=== PATIENT | female | born 1950 | race Caucasian/White ===

== ENCOUNTER → 2016-08-18 | Outpatient (CLI) | payer MEDICARE, BC | LOC: LABWHC1 12:16 | PROVIDERS: ATTEND Physician Assistant Medical | DX: L82.0 Inflamed seborrheic keratosis (principal); S10.86XA Insect bite of other specified part of neck, initial encounter; S60.561A Insect bite (nonvenomous) of right hand, initial encounter | CPT/HCPCS: 36415; 86618 ==

== ENCOUNTER 2018-01-10 07:56 | Day surgery (SDC) | payer MEDICARE, BC ==
[2018-01-06 10:18] VITALS: BMI 25.4
--- NOTE | 2018-01-09 11:59 | P.GSHP ---
History of Present Illness H&P Date: 01/10/18 CHIEF COMPLAINT: Colon screen HISTORY OF PRESENT ILLNESS: The patient is a 67-year-old female who presents for colon screen. Lower endoscopy was offered for further evaluation and management. PAST MEDICAL HISTORY: Please see list. PAST SURGICAL HISTORY: Please see list. MEDICATIONS: Please see list. ALLERGIES: Please see list. SOCIAL HISTORY: No illicit drug use FAMILY HISTORY: No reports of Crohn disease or ulcerative colitis. REVIEW OF ORGAN SYSTEMS: CONSTITUTIONAL: No reports of fevers or chills. PHYSICAL EXAM: VITAL SIGNS: Stable GENERAL: Well-developed pleasant in no acute distress. HEENT: No scleral icterus. Extraocular movements grossly intact. Moist buccal mucosa. NECK: Supple without lymphadenopathy. CHEST: Unlabored respirations. Equal bilateral excursions. CARDIOVASCULAR: Regular rate and rhythm. Distal 2+ pulses. ABDOMEN: Soft, nontender, nondistended. MUSCULOSKELETAL: No clubbing, cyanosis, or edema. ASSESSMENT: 1. Colon screen. PLAN: 1. Recommend proceeding with a lower endoscopy Past Medical History Past Medical History: Diabetes Mellitus, Hypertension, Thyroid Disorder Additional Past Medical History / Comment(s): MEN syndrome type1, diabetes mellitus type 2, hypertension and hypertensive cardiovascular disease, hypothyroidism, Fuchs corneal dystrophy, nephrolithiasis, left inferior parathyroid adenoma. History of Any Multi-Drug Resistant Organisms: None Reported Past Surgical History: Adenoidectomy, Appendectomy, Cholecystectomy, Orthopedic Surgery, Tonsillectomy Additional Past Surgical History / Comment(s): Appendectomy, selectively and adenoidectomy, Trans obturator mid urethral sling, pancreatic stent, distal pancreatectomy, splenectomy wrist open reduction and internal fixation,rt corneal transplant Past Anesthesia/Blood Transfusion Reactions: Motion Sickness, Postoperative Nausea & Vomiting (PONV) Additional Past Anesthesia/Blood Transfusion Reaction / Comment(s): vertigo Smoking Status: Former smoker - Past Family History Mother Family Medical History: Coronary Artery Disease (CAD), Diabetes Mellitus Father Family Medical History: No Reported History Sister(s) Family Medical History: Cancer, Diabetes Mellitus Brother(s) Family Medical History: Cancer Daughter(s) Family Medical History: No Reported History Son(s) Family Medical History: Unable to Obtain, Neurologic Disorder Medications and Allergies Home Medications Medication Instructions Recorded Confirmed Type Levothyroxine Sodium [Synthroid] 75 mcg PO MOTUWETH 12/12/13 01/06/18 History Lisinopril 5 mg PO QAM 12/12/13 01/06/18 History metFORMIN HCL [Glucophage] 500 mg PO BID 12/12/13 01/06/18 History Levothyroxine Sodium [Tirosint] 50 mcg PO SUFRSA 01/06/18 01/06/18 History guaiFENesin [Mucinex] 1,200 mg PO BID PRN 01/06/18 01/06/18 History Allergies Allergy/AdvReac Type Severity Reaction Status Date / Time Sulfa (Sulfonamide Allergy Rash/Hives Verified 01/06/18 10:05 Antibiotics) codeine AdvReac Nausea & Verified 01/06/18 10:05 Vomiting
[~2018-01-10 07:56] MED LIST: LACTATED RINGERS 1,000 ML IV SCH
[2018-01-10 08:30] LABS: Glucose,Whole Blood 137 mg/dL (75-99)
[2018-01-10 08:32] VITALS: RESP 16; TEMP 97.5
[2018-01-10] MEDS ORDERED: ONDANSETRON 4 MG/2 ML VIAL IVP ONE (08:33)
[2018-01-10] MEDS ORDERED: LIDOCAINE 1% 20 ML VIAL (10MG/ML) FOR IV START SQ ONE (08:34)
[2018-01-10] MEDS ORDERED: PROPOFOL 10 MG/ML 20 ML VIAL IV ONE (08:53)
[2018-01-10] MEDS ORDERED: LIDOCAINE 1% INJ 10MG/ML (20 ML MDV) ONE (08:53)
--- NOTE | 2018-01-10 09:28 | P.PCN ---
Date of Procedure: 01/10/18 Description of Procedure: PREOPERATIVE DIAGNOSIS: History of colon polyp History of hemorrhoids POSTOPERATIVE DIAGNOSIS: History of colon polyp. Cecal tubular adenoma External hemorrhoids, grade 3. OPERATION: Colonoscopy to the ileocecal valve and appendiceal orifice. Colonoscopy with cold forceps biopsies. SURGEON: Yasmine Blackburn MD. ANESTHESIA: MAC. INDICATIONS: The patient is a 67-year-old female who presents for colonoscopy screening. Last colonoscopy was 5 years ago. Benefits and risks were described and informed consent was obtained. DESCRIPTION OF PROCEDURE: The patient had undergone Gatorade, MiraLAX and Dulcolax prep. She had been brought into the operating room and laid in the left lateral decubitus position. After adequate intravenous sedation, the rectum was examined with 2% lidocaine jelly. External hemorrhoids were encountered. The rectal tone was within normal limits. No lesions were palpated in the rectal vault. An Olympus colonoscope was advanced until the ileocecal valve and appendiceal orifice were clearly viewed. Her sigmoid colon was highly redundant requiring abdominal wall pressure. The prep was excellent with visualization of the mucosal folds. The scope was removed with visualization of each mucosal fold. No scattered diverticulosis was encountered. Flat villous adenoma 4 mm was removed with cold forcep biopsy. No evidence of focal colitis was found. Retroflexion of the scope demonstrated grade 1 internal hemorrhoids without active bleeding or inflammation. The colon was desufflated. The patient had tolerated the procedure well. Withdrawal time was over 6 minutes. FINDINGS: Internal hemorrhoids, grade 3 External hemorrhoids, grade 3. No arteriovenous malformations. Flat villous adenoma 4 mm was removed with cold forcep biopsy. No sigmoid diverticulosis. Highly redundant sigmoid colon. No focal colitis. RECOMMENDATIONS: Repeat colonoscopy in 5 years, 2022 Plan - Discharge Summary New Discharge Prescriptions: No Action Lisinopril 5 mg PO QAM Levothyroxine Sodium [Synthroid] 75 mcg PO MOTUWETH metFORMIN HCL [Glucophage] 500 mg PO BID Levothyroxine Sodium [Tirosint] 50 mcg PO SUFRSA guaiFENesin [Mucinex] 1,200 mg PO BID PRN PRN Reason: Congestion Discharge Medication List Levothyroxine Sodium [Synthroid] 75 mcg PO MOTUWETH 12/12/13 [History] Lisinopril 5 mg PO QAM 12/12/13 [History] metFORMIN HCL [Glucophage] 500 mg PO BID 12/12/13 [History] Levothyroxine Sodium [Tirosint] 50 mcg PO SUFRSA 01/06/18 [History] guaiFENesin [Mucinex] 1,200 mg PO BID PRN 01/06/18 [History]
[2018-01-10 09:44] VITALS: BP 135/85; PULSE 79
[2018-01-10] MEDS ORDERED: SIMETHICONE 40 MG/0.6 ML DROPS 2,000 MG/30 ML BOTTLE PO SCH (13:30)
== END 2018-01-10 10:53 | disposition home or self-care (01) ==
LOC: ORWHC2ENDO 07:56
PROVIDERS: ATTEND Surgery Plastic and Reconstructive Surgery
DX: Z12.11 Encounter for screening for malignant neoplasm of colon (principal); D37.4 Neoplasm of uncertain behavior of colon; Q43.8 Other specified congenital malformations of intestine; K64.2 Third degree hemorrhoids; Z86.010 Personal history of colon polyps; I10 Essential (primary) hypertension; E11.9 Type 2 diabetes mellitus without complications; E07.9 Disorder of thyroid, unspecified; E31.21 Multiple endocrine neoplasia [MEN] type I; E03.9 Hypothyroidism, unspecified; D35.1 Benign neoplasm of parathyroid gland; Z87.442 Personal history of urinary calculi; Z87.891 Personal history of nicotine dependence; Z79.84 Long term (current) use of oral hypoglycemic drugs; Z79.890 Hormone replacement therapy; Z79.899 Other long term (current) drug therapy; Z88.5 Allergy status to narcotic agent; Z88.2 Allergy status to sulfonamides
CPT/HCPCS: 88305; 45380; J2405; J2001; J2704

== ENCOUNTER → 2018-02-23 | Outpatient (CLI) | payer MEDICARE, BC ==
--- NOTE | 2018-02-28 10:56 | MM ---
Reason for exam: screening (asymptomatic). Last mammogram was performed 11 months ago. History: Patient is postmenopausal. Family history of breast cancer in maternal aunt at age 56, breast cancer in maternal cousin, and premenopausal breast cancer in maternal aunt at age 40. Cyst aspiration of the left breast. Physical Findings: A clinical breast exam by your physician is recommended on an annual basis and results should be correlated with mammographic findings. MG 3D Screening Mammo W/Cad Bilateral CC and MLO view(s) were taken. Prior study comparison: March 11, 2017, left breast MG 3d work up w/cad LT. February 22, 2017, bilateral MG 3d screening mammo w/cad. The breast tissue is heterogeneously dense. This may lower the sensitivity of mammography. Left focal asymmetry upper outer quadrant is stable. Right upper outer quadrant focal asymmetry at middle depth appears increased in density on CC in comparison to priors, mass posterior to this is stable. ASSESSMENT: Incomplete: need additional imaging evaluation, BI-RAD 0 RECOMMENDATION: Special view mammogram of the right breast. If lesion persists on supplemental views, image directed ultrasound is recommended. [facility] will attempt to contact patient to return for supplemental views and ultrasound if indicated.
== END ==
LOC: RADMAMWWP 10:01
PROVIDERS: ATTEND Internal Medicine
DX: Z12.31 Encounter for screening mammogram for malignant neoplasm of breast (principal)
CPT/HCPCS: 77063; 77067

== ENCOUNTER → 2018-03-14 | Outpatient (CLI) | payer MEDICARE, BC ==
--- NOTE | 2018-03-15 08:11 | MM ---
Reason for exam: additional evaluation requested from abnormal screening. Last mammogram was performed 1 month ago. History: Patient is postmenopausal. Family history of breast cancer in maternal aunt at age 56, breast cancer in maternal cousin, and premenopausal breast cancer in maternal aunt at age 40. Cyst aspiration of the left breast. Physical Findings: Nurse did not find any significant physical abnormalities on exam. MG 3D Work Up W/Cad RT Spot compression CC, spot compression MLO, and LM view(s) were taken of the right breast. Prior study comparison: February 23, 2018, bilateral MG 3d screening mammo w/cad. March 11, 2017, left breast MG 3d work up w/cad LT. January 08, 2014, bilateral MG screening mammo w CAD. December 07, 2012, bilateral digital screening mammo w/CAD. The breast tissue is heterogeneously dense. This may lower the sensitivity of mammography. There is no discrete abnormality. No significant new findings when compared with previous films. These results were verbally communicated with the patient and result sheet given to the patient on 03/14/18. ASSESSMENT: Benign, BI-RAD 2 RECOMMENDATION: Return to routine screening mammogram schedule for both breasts.
== END | disposition home or self-care (01) ==
LOC: RADMAMWWP 15:39
PROVIDERS: ATTEND Internal Medicine
DX: R92.8 Other abnormal and inconclusive findings on diagnostic imaging of breast (principal)
CPT/HCPCS: 77065; G0279; 77061

== ENCOUNTER → 2018-09-07 | Outpatient (CLI) | payer MEDICARE, BC ==
--- NOTE | 2018-09-07 15:25 | US ---
EXAMINATION TYPE: US pelvis complete transvag DATE OF EXAM: 09/07/2018 COMPARISON: CT CLINICAL HISTORY: R10.2 right pelvic pain. Pt states RLQ pain, possible right pelvic mass felt on Dr' s examination TECHNIQUE: Transvaginal (TV) and Transabdominal (TA) . Transabdominal sonographic images of the pel vis were acquired. Transvaginal sonographic images were medically necessary to better assess the fol lowing anatomy: Entire pelvis Date of LMP: Age 50 EXAM MEASUREMENTS: Uterus: 6.5 x 3.6 x 4.5 cm Endometrial Stripe: 0.5 cm Right Ovary: 1.3 x 1.4 x 1.4 cm Left Ovary: 2.1 x 1.3 x 1.7 cm 1. Uterus: Retroverted Heterogeneous, probable two fibroids visualized left UT= 1.8 x 1.4 x 1.9 cm/ 1.6 x 1.3 x 1.5 cm 2. Endometrium: wnl 3. Right Ovary: wnl 4. Left Ovary: wnl 5. Bilateral Adnexa: wnl 6. Posterior cul-de-sac: wnl IMPRESSION: Heterogenous uterus with 2 focal hypoechoic lesions measuring 1.9 and 1.6 cm likely relat ed to intramural leiomyomas. Adnexa appear within normal limits sonographically.
== END ==
LOC: RADUSWWP 14:03
PROVIDERS: ATTEND Obstetrics & Gynecology
DX: N85.9 Noninflammatory disorder of uterus, unspecified (principal)
CPT/HCPCS: 76830; 76856

== ENCOUNTER → 2018-11-04 | Outpatient (CLI) | payer MEDICARE, BC ==
[2018-11-04 11:01] LABS: Appearance,Urine Cloudy (Clear); Bacteria,Urine Many /hpf; Bilirubin,Urine Negative (Negative); Blood,Urine Trace (Negative); Color,Urine Yellow; Glucose,Urine (UA) Negative (Negative); Ketones,Urine Negative (Negative); Leukocyte Esterase,Urine Large (Negative); Mucus,Urine Many /hpf; Nitrite,Urine Negative (Negative); Protein,Urine Trace (Negative); RBC,Urine 5 /hpf (0-5); Specific Gravity,Urine 1.009 (1.001-1.035); Squamous Epithelial Cell,Urine 7 /hpf (0-4); Urobilinogen,Urine <2.0 mg/dL (<2.0); WBC,Urine 63 /hpf (0-5)
[2018-11-04 11:16] LABS: Basophils # (A) 0.1 k/uL (0-0.2); Basophils % (A) 1 %; Eosinophils # (A) 0.3 k/uL (0-0.7); Eosinophils % (A) 3 %; HCT 39.6 % (34.0-46.0); HGB 12.1 gm/dL (11.4-16.0); Lymphocytes # (A) 2.7 k/uL (1.0-4.8); Lymphocytes % (A) 31 %; MCH 31.2 pg (25.0-35.0); MCHC 30.6 g/dL (31.0-37.0); Macrocytosis Slight; Mean Platelet Volume 7.7; Monocytes # (A) 0.6 k/uL (0-1.0); Monocytes % (A) 7 %; Neutrophils # (A) 4.8 k/uL (1.3-7.7); Neutrophils % (A) 56 %; Platelet Count 411 k/uL (150-450); RBC 3.88 m/uL (3.80-5.40); RDW 13.2 % (11.5-15.5); Reticulocyte % 0.8 % (0.5-2.0); WBC 8.6 k/uL (3.8-10.6)
[2018-11-04 18:47] LABS: Iron Saturation 46.15 (12.00-45.00)
[2018-11-04 18:55] LABS: African American GFR (CKD) 101.7 (60.0-200.0); Albumin 4.3 g/dL (3.80-4.90); Albumin/Globulin Ratio 2.15 (1.60-3.17); Anion Gap 8.2 mmol/L (4.00-12.00); BUN/Creat Ratio 18.57 Ratio (12.00-20.00); Calcium 9.5 mg/dL (8.7-10.3); Carbon Dioxide 24.8 mmol/L (21.6-31.8); LDL Cholesterol,Calculated 79.8 mg/dL (0.0-131.0); Magnesium 1.8 mg/dL (1.5-2.4); Potassium 4.3 mmol/L (3.5-5.5); Total Bilirubin 0.8 mg/dL (0.3-1.2); Total Protein 6.3 g/dL (6.2-8.2); VLDL Calculation 30.2 mg/dL (5.00-40.00)
[2018-11-04 19:00] LABS: Vitamin D 25 Hydroxy 31.1 ng/mL (30.0-100.0)
[2018-11-04 19:02] LABS: T4, Free (Free Thyroxine) 1.2 ng/dL (0.80-1.80)
== END | disposition home or self-care (01) ==
LOC: LABWHC1 09:55
PROVIDERS: ATTEND Family Medicine
DX: E31.21 Multiple endocrine neoplasia [MEN] type I (principal); E11.8 Type 2 diabetes mellitus with unspecified complications; D64.9 Anemia, unspecified; E55.9 Vitamin D deficiency, unspecified; E53.8 Deficiency of other specified B group vitamins
CPT/HCPCS: 36415; 80053; 80061; 81001; 82043; 82306; 82550; 82570; 82607; 82728; 83001; 83002; 83540; 83550; 83735; 83970; 84146; 84439; 84443; 85025; 85045

== ENCOUNTER → 2019-03-07 | Outpatient (CLI) | payer MEDICARE, BC ==
--- NOTE | 2019-03-07 21:12 | MR ---
EXAMINATION TYPE: MR hip LT wo con DATE OF EXAM: 03/07/2019 COMPARISON: NONE HISTORY: 68-year-old female Left hip pain x 3 mos TECHNIQUE: Multiplanar, multisequence images of the left hip were obtained without IV contrast. FINDINGS: Moderate stool within the distal sigmoid and rectum. There is a 2.0 cm left uterine fundal fibroid. N o abnormal fluid collection in the pelvis or pelvic lymphadenopathy. The sacrum and SI joints are intact. Pubic symphysis is intact. Hips show physiologic joint fluid; no evidence for acute fracture or AVN. Mild degenerative changes suggested at both hips but osseous detail could be better assessed radiogra phically. On the left, one superior acetabulum, there is linear fluid signal undercutting the labral bone inter face. There is anteriorly, there is prominent cystic change within the anterior acetabulum measuring 2.0 x 1.6 x 1.1 cm and additional extraosseous cyst just anteriorly measuring 2.0 x 1.0 x 1.2 cm. Thi s is located directly deep to the femoral neurovascular bundle. No suspicious bone marrow replacement. The rectus femoris and hamstrings origins as well as the iliopsoas and gluteal insertions are intact. Normal course, caliber, and signal intensity of the sciatic nerves. IMPRESSION: 1. Superior acetabular labral tear on the left. 2. A 2.0 cm ganglion cyst along the anterior left acetabulum located directly deep to the femoral jessenia rovascular bundle. Findings probably reflect a paralabral cyst. 3. There is a separate but adjacent 2.0 cm intraosseous ganglion within the anterior acetabulum which could be secondary to left hip OA, better evaluated radiographically.
== END | disposition home or self-care (01) ==
LOC: RADMRIMAIN 08:46
PROVIDERS: ATTEND Family Medicine
DX: S73.192A Other sprain of left hip, initial encounter (principal); M67.452 Ganglion, left hip

== ENCOUNTER → 2019-03-08 | Outpatient (CLI) | payer MEDICARE, BC ==
--- NOTE | 2019-03-09 11:43 | MM ---
Reason for exam: screening (asymptomatic). Last mammogram was performed 1 year ago. History: Patient is postmenopausal. Family history of breast cancer in maternal aunt at age 56, breast cancer in maternal cousin, and premenopausal breast cancer in maternal aunt at age 40. Cyst aspiration of the left breast. Physical Findings: A clinical breast exam by your physician is recommended on an annual basis and results should be correlated with mammographic findings. MG 3D Screening Mammo W/Cad Bilateral CC and MLO view(s) were taken. XCCL view(s) were taken of the right breast. Prior study comparison: March 14, 2018, right breast MG 3d work up w/cad RT. February 23, 2018, bilateral MG 3d screening mammo w/cad. The breast tissue is heterogeneously dense. This may lower the sensitivity of mammography. Benign appearing bilateral calcifications. Bilateral upper outer quadrant asymmetries appear stable. No significant changes when compared with prior studies. ASSESSMENT: Benign, BI-RAD 2 RECOMMENDATION: Routine screening mammogram of both breasts in 1 year.
== END | disposition home or self-care (01) ==
LOC: RADMAMWWP 08:42
PROVIDERS: ATTEND Family Medicine
DX: Z12.31 Encounter for screening mammogram for malignant neoplasm of breast (principal)
CPT/HCPCS: 77063; 77067

== ENCOUNTER → 2019-10-11 | Outpatient (CLI) | payer MEDICARE ==
--- NOTE | 2019-10-12 08:17 | BD ---
EXAMINATION TYPE: Axial Bone Density DATE OF EXAM: 10/11/2019 COMPARISON: 01/08/2014 CLINICAL HISTORY: 69-year-old female postmenopausal screening, disorder of bone Height: 5 FT 1 IN Weight: 128 FRAX RISK QUESTIONS: Alcohol (3 or more units per day): NO Family History (Parent hip fracture): NO Glucocorticoids (More than 3mos): NO (Ex: prednisone, prednisolone, methylprednisolone, dexamethasone, and hydrocortisone). History of Fracture in Adulthood: YES Secondary Osteoporosis: 1. Type 1 Diabetes: NO 2. Hyperthyroidism: NO 3. Menopause before 45: NO 4. Malnutrition: NO 5. Chronic liver disease: NO Rheumatoid Arthritis: NO Current Tobacco Use: NO RISK FACTORS HISTORY OF: History of Wrist Fracture: RT WRIST When: 25-30 YEARS AGO Surgery to Spine/Hip(right/left)/Wrist (right/left): RT WRIST When: 25-30 YEARS AGO Active: YES Postmenopausal woman: AGE 50 Hyperparathyroidism: YES MEDICATIONS: Thyroid Medications: YES Which medication: LEVOTHYROXINE How Long: MANY YEARS Additional Medications: Metformin, levothyroxine, LISINOPRIL Additional History: EXAM MEASUREMENTS: Bone mineral densitometry was performed using the [employer] System. Bone mineral density as measured about the Lumbar spine is: ----- L1-L4(G/cm2): 1.086 T Score Values are as follows: ----- L2: -1.2 ----- L3: -0.8 ----- L4: -0.1 ----- L1-L4: -0.8 Bone mineral density has: DECREASED -3.6 % since study of: 2013 Bone mineral density about the R hip (g/cm2): 0.851 Bone mineral density about the L hip (g/cm2): 0.901 T Score values are as follows: -----R Neck: -1.3 -----L Neck: -1.0 -----R Total: -0.2 -----L Total: -0.2 Bone mineral density has: DECREASED -7.7 % since study of: 2013 IMPRESSION: Osteopenia (T Score between -2.5 and -1). There is slightly increased risk of fracture and the patient may be considered for treatment. Re-Screen 2-5 years. NOTE: T-SCORE=SD OF THE YOUNG ADULT MEAN.
== END | disposition home or self-care (01) ==
LOC: RADBDWWP 15:01
PROVIDERS: ATTEND Family Medicine
DX: Z13.820 Encounter for screening for osteoporosis (principal); M81.8 Other osteoporosis without current pathological fracture; M89.9 Disorder of bone, unspecified
CPT/HCPCS: 77080

== ENCOUNTER → 2019-10-11 | Outpatient (CLI) | payer MEDICARE ==
--- NOTE | 2019-10-11 15:58 | US ---
EXAMINATION TYPE: US kidneys/renal and bladder DATE OF EXAM: 10/11/2019 COMPARISON: CLINICAL HISTORY: N20.0 Calculus of kidney. Hx multiple kidney stones. No pain at this time. EXAM MEASUREMENTS: Right Kidney: 9.7 x 4.6 x 4.2 cm Left Kidney: 10.4 x 4.4 x 5.6 cm Right Kidney: Multiple echogenic foci seen throughout kidney. Largest measured= 0.8 cm in lower pole Left Kidney: Multiple echogenic foci seen throughout kidney. Largest measured with probable caliecta sis = 0.6 cm. Bladder: Distended, anechoic Left jet seen Cortical measured differentiation is maintained. IMPRESSION: Bilateral nephrolithiasis with some minimal pelvic caliectasis noted left kidney
--- NOTE | 2019-10-11 16:06 | XR ---
KUB HISTORY: N 20.0, calculus of kidney Frontal KUB on 2 images Multiple calcifications are present scattered over both kidneys, there are at least 10-15 calcificati ons bilaterally. Largest calcification on the right measures approximately millimeters, similar to th e left. There is no bowel obstruction or pneumoperitoneum. Indeterminate calcifications in the pelvis may represent phleboliths. Large amount of retained fecal debris is present. Surgical clips in the r ight upper quadrant. IMPRESSION: Bilateral nephrolithiasis. Correlate for fecal stasis.
== END | disposition home or self-care (01) ==
LOC: RADUSWWP 14:57
PROVIDERS: ATTEND Urology
DX: N20.0 Calculus of kidney (principal); Z88.2 Allergy status to sulfonamides
CPT/HCPCS: 74018; 76770

== ENCOUNTER → 2020-08-01 | Outpatient (CLI) | payer MEDICARE ==
[2020-08-01 10:39] LABS: Ionized Calcium 5.5 mg/dL (4.5-5.3)
[2020-08-01 11:05] LABS: ALT 20 U/L (4-34); AST 25 U/L (14-36); African American GFR (CKD) >90 (>60 ml/min/1.73 sqM); Albumin 4.2 g/dL (3.5-5.0); Albumin/Globulin Ratio 1.6; Alkaline Phosphatase 89 U/L (38-126); Anion Gap 4 mmol/L; Blood Urea Nitrogen 12 mg/dL (7-17); Calcium 10.2 mg/dL (8.4-10.2); Carbon Dioxide 29 mmol/L (22-30); Chloride 107 mmol/L (98-107); Cholesterol 145 mg/dL (<200); Globulin 2.7 g/dL; Glucose 131 mg/dL (74-99); HDL Cholesterol 56 mg/dL (40-60); LDL Cholesterol,Calculated 74 mg/dL (0-99); Non-African American GFR(CKD) >90 (>60 ml/min/1.73 sqM); Potassium 5.1 mmol/L (3.5-5.1); Sodium 140 mmol/L (137-145); Total Bilirubin 0.6 mg/dL (0.2-1.3); Total Protein 6.9 g/dL (6.3-8.2); Triglycerides 76 mg/dL (<150); Uric Acid 5.1 mg/dL (3.7-7.4)
[2020-08-01 11:17] LABS: T4, Free (Free Thyroxine) 1.26 ng/dL (0.78-2.19)
[2020-08-01 15:21] LABS: Basophils # (A) 0.09 X 10*3/uL (0.00-0.10); Eosinophils # (A) 0.26 X 10*3/uL (0.04-0.35); Eosinophils % (A) 2.8 %; HCT 39.4 % (37.2-46.3); HGB 12.4 g/dL (12.0-15.0); Lymphocytes # (A) 3.09 X 10*3/uL (0.90-5.00); Lymphocytes % (A) 33.4 %; MCHC 31.5 g/dL (32.0-37.0); MCV 101.5 fL (80.0-97.0); Mean Platelet Volume 11.3 fL (9.5-12.2); Monocytes # (A) 0.73 X 10*3/uL (0.20-1.00); Monocytes % (A) 7.9 %; Neutrophils # (A) 5.05 X 10*3/uL (1.80-7.70); Neutrophils % (A) 54.7 %; Platelet Count 433 X 10*3/uL (140-440); RBC 3.88 X 10*6/uL (4.10-5.20); RDW 13.9 % (11.5-14.5); WBC 9.24 X 10*3/uL (4.50-10.00)
[2020-08-01 17:00] LABS: Hemoglobin A1C 6.1 % (4.0-6.0)
[2020-08-01 22:13] LABS: Urine Creatinine 63.1 mg/dL
[2020-08-02 02:04] LABS: % Iron Saturation 30.67 (12.00-45.00); Iron 96 ug/dL (50-170); Total Iron Binding Capacity 313 ug/dL (228-460)
== END | disposition home or self-care (01) ==
LOC: LABWHC1 09:22
PROVIDERS: ATTEND Family Medicine
DX: S73.199D Other sprain of unspecified hip, subsequent encounter (principal); E31.21 Multiple endocrine neoplasia [MEN] type I; E11.8 Type 2 diabetes mellitus with unspecified complications; E03.9 Hypothyroidism, unspecified; D64.9 Anemia, unspecified; W19.XXXD Unspecified fall, subsequent encounter
CPT/HCPCS: 36415; 80053; 80061; 82043; 82330; 82570; 83036; 83540; 83550; 83970; 84439; 84443; 84550; 85025

== ENCOUNTER → 2020-09-19 | Outpatient (CLI) | payer MEDICARE ==
--- NOTE | 2020-09-20 12:43 | MM ---
Reason for exam: screening (asymptomatic). Last mammogram was performed 1 year and 6 months ago. History: Patient is postmenopausal. Family history of breast cancer in maternal aunt at age 56, breast cancer in maternal cousin, and premenopausal breast cancer in maternal aunt at age 40. Cyst aspiration of the left breast. Physical Findings: A clinical breast exam by your physician is recommended on an annual basis and results should be correlated with mammographic findings. MG 3D Screening Mammo W/Cad Bilateral CC and MLO view(s) were taken. Prior study comparison: March 08, 2019, bilateral MG 3d screening mammo w/cad. March 14, 2018, right breast MG 3d work up w/cad RT. The breast tissue is heterogeneously dense. This may lower the sensitivity of mammography. ASSESSMENT: Negative, BI-RAD 1 RECOMMENDATION: Routine screening mammogram of both breasts in 1 year.
== END | disposition home or self-care (01) ==
LOC: RADMAMWWP 12:07
PROVIDERS: ATTEND Family Medicine
DX: Z12.31 Encounter for screening mammogram for malignant neoplasm of breast (principal); Z78.0 Asymptomatic menopausal state; Z80.3 Family history of malignant neoplasm of breast
CPT/HCPCS: 77063; 77067

== ENCOUNTER → 2020-12-16 | Outpatient (CLI) | payer MEDICARE ==
--- NOTE | 2020-12-16 11:49 | XR ---
EXAMINATION TYPE: XR KUB DATE OF EXAM: 12/16/2020 HISTORY: Pain Comparison: 10/11/2019 Single KUB is submitted for interpretation. Findings: Right renal calculi: None Visualized. Right ureteral calculi: Innumerable calculi identified. The largest cyst within the midpole measures 6.7 mm. Left renal calculi: Innumerable calculi noted. The largest is in the region of the colon measures 3 mm. Left ureteral calculi: None Visualized. Pelvic calcifications: None Visualized. Bowel gas pattern is unremarkable. No free air. No mass effects. IMPRESSION: 1. Bilateral renal calculi as noted above.
== END | disposition home or self-care (01) ==
LOC: RADXRMAIN 11:18
PROVIDERS: ATTEND Urology
DX: N20.0 Calculus of kidney (principal)
CPT/HCPCS: 74018

== ENCOUNTER → 2021-01-08 | Outpatient (CLI) | payer MEDICARE ==
[2021-01-08 18:30] LABS: Basophils % (A) 1.2 %; Eosinophils # (A) 0.24 X 10*3/uL (0.04-0.35); Eosinophils % (A) 2.8 %; HCT 39.5 % (37.2-46.3); HGB 12.4 g/dL (12.0-15.0); Lymphocytes # (A) 2.87 X 10*3/uL (0.90-5.00); Lymphocytes % (A) 33.3 %; MCHC 31.4 g/dL (32.0-37.0); MCV 101.8 fL (80.0-97.0); Mean Platelet Volume 11.3 fL (9.5-12.2); Monocytes # (A) 0.73 X 10*3/uL (0.20-1.00); Monocytes % (A) 8.5 %; Neutrophils # (A) 4.67 X 10*3/uL (1.80-7.70); Neutrophils % (A) 54.1 %; Platelet Count 461 X 10*3/uL (140-440); RBC 3.88 X 10*6/uL (4.10-5.20); RDW 14.4 % (11.5-14.5); WBC 8.62 X 10*3/uL (4.50-10.00)
[2021-01-08 19:34] LABS: % Iron Saturation 42.21 (12.00-45.00); Chol/HDL Ratio 2.94 Ratio; Creatine Kinase 56 U/L (26-186); Iron 143 ug/dL (50-170); LDL Cholesterol,Calculated 75.2 mg/dL (0.0-131.0); Total Iron Binding Capacity 339 ug/dL (228-460)
== END | disposition home or self-care (01) ==
LOC: LABWHC1 11:20
PROVIDERS: ATTEND Family Medicine
DX: E11.8 Type 2 diabetes mellitus with unspecified complications (principal); E31.21 Multiple endocrine neoplasia [MEN] type I; E03.9 Hypothyroidism, unspecified; F34.1 Dysthymic disorder
CPT/HCPCS: 36415; 80053; 80061; 82550; 82607; 83036; 83540; 83550; 83970; 84443; 85025; 86301

== ENCOUNTER → 2021-01-15 | Outpatient (CLI) | payer MEDICARE ==
--- NOTE | 2021-01-15 13:03 | CT ---
EXAMINATION TYPE: CT abdomen w con DATE OF EXAM: 01/15/2021 COMPARISON: CT 12/12/2013 HISTORY: multiple endocrine neoplasia CT DLP: 812 mGycm Automated exposure control for dose reduction was used. TECHNIQUE: Helical acquisition of images was performed from the lung bases through the top of iliac crest to include entire abdomen, three-phase is performed. CONTRAST: Performed with Oral Contrast and with IV Contrast, patient injected with 100 mL of Isovue 370. FINDINGS: LUNG BASES: No significant abnormality is appreciated. LIVER/GB: Patient is post cholecystectomy. Some dilated central hepatic ducts, common bile duct are n oted PANCREAS: No significant abnormality is seen. 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 Probable splenule noted just underneath the left hemidiaphragm, ax ial image 13 ADRENALS: No significant abnormality is seen. KIDNEYS: Multiple nonobstructing calcifications are present within the kidneys, there is right-sided hydronephrosis and hydroureter. BOWEL: No significant abnormality is seen. LYMPH NODES: No significant abnormality is appreciated. OSSEOUS STRUCTURES: There are degenerative disc changes, facet arthropathy and the visualized spine. Anterolisthesis grade 1 is noted in the lumbar spine at what is believed to BE L4-5. FREE AIR: No Free Air visible ASCITES: None visible. RETROPERITONEAL ADENOPATHY: No Retroperitoneal Adenopathy visible. OTHER: IMPRESSION: POSTOP CHANGES. NO EVIDENT PANCREATIC TUMOR. THERE IS RIGHT-SIDED HYDRONEPHROSIS AND HYDROURETER. PARAG ATERAL NEPHROLITHIASIS AGAIN SEEN. DISTAL ASPECT OF THE OBSTRUCTED URETER IS NOT INCLUDED ON THE EXAM .
== END | disposition home or self-care (01) ==
LOC: RADCTMAIN 08:58
PROVIDERS: ATTEND Family Medicine
DX: N13.2 Hydronephrosis with renal and ureteral calculous obstruction (principal)
CPT/HCPCS: 74160; 36415; Q9967

== ENCOUNTER 2021-02-06 05:48 | Day surgery (SDC) | payer MEDICARE ==
--- NOTE | 2021-02-04 07:04 | P.GSHP ---
History of Present Illness H&P Date: 02/04/21 Chief Complaint: Right-sided abdominal pain is a 70-year-old white female with a history of recurrent urolithiasis. She has recently experienced right-sided abdominal pain. CT scan shows multiple right renal calculi measuring up to 5 mm in size, as well as right hydroureter onephrosis. The distal ureter was not visualized. - Constitutional Constitutional: Denies chills, Denies fever - Gastrointestinal Gastrointestinal: Reports nausea, Denies vomiting - Genitourinary (Female) Genitourinary: Reports flank pain, Reports kidney stones, Denies hematuria Past Medical History Past Medical History: Diabetes Mellitus, Hypertension, Thyroid Disorder Additional Past Medical History / Comment(s): MEN syndrome type1, diabetes mellitus type 2, hypertension and hypertensive cardiovascular disease, hypothyroidism, Fuchs corneal dystrophy, nephrolithiasis, left inferior parathyroid adenoma. History of Any Multi-Drug Resistant Organisms: None Reported Past Surgical History: Adenoidectomy, Appendectomy, Cholecystectomy, Orthopedic Surgery, Tonsillectomy Additional Past Surgical History / Comment(s): Appendectomy, selectively and adenoidectomy, Trans obturator mid urethral sling, pancreatic stent, distal pancreatectomy, splenectomy wrist open reduction and internal fixation,rt corneal transplant Past Anesthesia/Blood Transfusion Reactions: Motion Sickness, Postoperative Nausea & Vomiting (PONV) Additional Past Anesthesia/Blood Transfusion Reaction / Comment(s): vertigo Past Psychological History: No Psychological Hx Reported Past Alcohol Use History: Occasional Additional Past Alcohol Use History / Comment(s): quit smoking >20yrs ago,social smoker as teenager Past Drug Use History: None Reported - Past Family History Mother Family Medical History: Coronary Artery Disease (CAD), Diabetes Mellitus Father Family Medical History: No Reported History Sister(s) Family Medical History: Cancer, Diabetes Mellitus Brother(s) Family Medical History: Cancer Daughter(s) Family Medical History: No Reported History Son(s) Family Medical History: Unable to Obtain, Neurologic Disorder Medications and Allergies Home Medications Medication Instructions Recorded Confirmed Type Levothyroxine Sodium [Synthroid] 75 mcg PO MOTUWETH 12/12/13 01/10/18 History lisinopriL [Lisinopril] 5 mg PO QAM 12/12/13 01/10/18 History metFORMIN HCL [Glucophage] 500 mg PO BID 12/12/13 01/10/18 History Levothyroxine Sodium [Tirosint] 50 mcg PO SUFRSA 01/06/18 01/10/18 History guaiFENesin [Mucinex] 1,200 mg PO BID PRN 01/06/18 01/10/18 History Allergies Allergy/AdvReac Type Severity Reaction Status Date / Time Sulfa (Sulfonamide Allergy Rash/Hives Verified 01/10/18 08:18 Antibiotics) codeine AdvReac Nausea & Verified 01/10/18 08:18 Vomiting Surgical - Exam - General well developed, well nourished, no distress - Respiratory normal respiratory effort, clear to auscultation - Cardiovascular Rhythm: regular Abnormal Heart Sounds: no systolic murmur, no diastolic murmur, no rub, no S3 Gallop, no S4 Gallop, no click, no other - Abdomen Abdomen: soft, non tender, no guarding, no rigid, no rebound - Psychiatric oriented to time, oriented to person, oriented to place, speech is normal, memory intact Results - Imaging CT scan - abdomen: report reviewed, image reviewed Assessment and Plan (1) Kidney stone Status: Acute Code(s): N20.0 - CALCULUS OF KIDNEY SNOMED Code(s): 10524523 (2) Hydronephrosis with renal and ureteral calculous obstruction Status: Acute Code(s): N13.2 - HYDRONEPHROSIS WITH RENAL AND URETERAL CALCULOUS OBSTRUCTION SNOMED Code(s): 371928537 Plan: cystoscopy, right retrograde pyelogram, right ureteroscopy with Holmium laser li thotripsy and possible stone basketing, right ureteral stent insertion. It is anticipated that the patient may have a right distal ureteral calculus. The procedure has been reviewed in detail with the patient. She is aware of potential risks, which include anesthesia, bleeding, infection, and ureteral injury. She understands the possible need for a secondary treatment.
[2021-02-04 14:32] VITALS: BMI 23.2
[2021-02-06] MEDS ORDERED: ONDANSETRON 4 MG/2 ML VIAL IVP ONE (06:27)
[2021-02-06] MEDS ORDERED: LACTATED RINGERS 1,000 ML IV SCH (06:27)
[2021-02-06] MEDS ORDERED: MIDAZOLAM 2 MG/2 ML VIAL IV PRN (06:27)
[2021-02-06] MEDS ORDERED: DEXAMETHASONE SOD PHOSPHATE 4 MG/ML 1 ML VIAL IV ONE (06:27)
[2021-02-06 06:55] LABS: Glucose,Whole Blood 131 mg/dL (75-99)
[2021-02-06] MEDS ORDERED: fentaNYL (PF) 50 MCG/ML 2 ML AMP IV PRN (07:00)
[2021-02-06] MEDS ORDERED: SUCCINYLCHOLINE CHLORIDE 100 MG/5 ML SYR IV ONE (07:32)
[2021-02-06] MEDS ORDERED: LIDOCAINE 1% INJ 10MG/ML (20 ML MDV) ONE (07:32)
[2021-02-06] MEDS ORDERED: PROPOFOL 10 MG/ML 20 ML VIAL IV ONE (07:32)
[2021-02-06] MEDS ORDERED: ROCURONIUM 10 MG/ML (5 ML VIAL) IV ONE (07:32)
[2021-02-06] MEDS ORDERED: fentaNYL (PF) 50 MCG/ML 2 ML AMP ONE (07:32)
[2021-02-06] MEDS ORDERED: GLYCOPYRROLATE 0.2 MG/ML 2 ML VIAL ONE (07:32)
[2021-02-06] MEDS ORDERED: ePHEDrine 50 MG/ML 1 ML AMP ONE (07:32)
[2021-02-06] MEDS ORDERED: NEOSTIGMINE 1 MG/ML 10 ML VIAL ONE (07:32)
[2021-02-06] MEDS ORDERED: MIDAZOLAM 2 MG/2 ML VIAL ONE (07:32)
--- NOTE | 2021-02-06 07:59 | XR ---
EXAMINATION TYPE: XR KUB DATE OF EXAM: 02/06/2021 Comparison: 12/16/2020 Clinical History: 70-year-old female Right Renal Calculi Right Hydronephrosis Findings: Numerous bilateral renal calculi measuring up to 5 mm on the right and 4 mm on the left. Scattered mi [id number] stool. Nonobstructive bowel gas pattern. Cholecystectomy clips. Impression: Redemonstrated numerous bilateral renal calculi measuring up to 5 mm.
[2021-02-06] MEDS ORDERED: LACTATED RINGERS 1,000 ML IV ONE (08:58)
[2021-02-06 09:55] LABS: Glucose,Whole Blood 171 mg/dL (75-99)
[2021-02-06 09:58] VITALS: TEMP 97.1
[2021-02-06 10:04] VITALS: RESP 16
--- NOTE | 2021-02-06 10:10 | P.OP ---
Date of Procedure: 02/06/21 Preoperative Diagnosis: Right renal calculi Postoperative Diagnosis: Right renal calculi, right ureteral calculus, right renal pelvic tumors Procedure(s) Performed: Cystoscopy, right ureteroscopy with Holmium laser lithotripsy and stone basketing, ablation of right renal pelvic tumors, right ureteral stent insertion Anesthesia: MAOA Surgeon: Linus Rodriguez Estimated Blood Loss (ml): 5 IV fluids (ml): 900 Pathology: none sent Condition: stable Disposition: PACU Indications for Procedure: The patient is a 70-year-old white female with a history of recurrent urolithiasis. She has recently experienced right-sided abdominal pain. CT scan shows multiple right renal calculi measuring up to 5 mm in size, as well as right hydroureteronephrosis. The distal ureter was not visualized. Operative Findings: Large calculus impacted at right ureteral orifice. Several right renal calculi. Low-grade appearing tumor identified within the upper aspect of the right renal pelvis. Description of Procedure: The patient was taken to the operating room and placed in the dorsolithotomy position, with legs supported in Reji stirrups. The external genitalia was prepped and draped sterilely. The 30 lens was used to introduce the 21-Bhutanese Downs cystoscopic sheath through the urethra and into the bladder under direct vision. The bladder was examined in its entirety. The left ureteral orifice was of normal anatomic location and configuration, and clear urine effluxed from it. No tumors were seen. A calculus was impacted at the right ureteral orifice. The Downs semirigid ureteroscope was advanced into the bladder, and the right ureteral orifice was cannulated. The 272 micron Holmium laser probe was passed through the ureteroscope, and lithotripsy was performed. The calculus was fragmented completely, and calculus fragments were removed from the ureter using a 1.9-Bhutanese nitinol basket. There was no evidence of ureteral trauma, and no residual calculus fragments seen within the ureter. The ureter was dilated, and the Downs weartolook flexible ureteroscope was passed through the ureter under direct vision and advanced up to the right renal pelvis. Each calyx was examined. Calculi were seen within an upper pole calyx and mid pole calyx. All calculi were fragmented, and any calculus fragments exceeding the size of the laser fiber tip were removed via stone basket. Within the upper aspect of the right renal pelvis, a papillary tumor was seen. Flat tumor was seen adjacent to this. The laser was used to vaporize the base of the tumor, detaching it from the urothelium. This was removed using the stone basket, and measured only approximately 1 mm in size. It was sent to pathology. The renal pelvis was irrigated with 0.9 normal saline, and washings were sent for cytology. Lastly, the flat portion of the tumor was vaporized using the Holmium laser. Once it was confirmed that there was no residual viable tumor, a 0.035 inch Glidewire was passed through the ureteroscope and into the right renal pelvis. The ureteroscope was removed, and the Glidewire was backloaded into the cystoscope, which was advanced into the bladder. A 24 cm, 6-Bhutanese double-J ureteral stent was placed over the wire. Proper stent positioning was verified fluoroscopically and endoscopically. The bladder was emptied and the cystoscope removed. The patient tolerated the procedure well and was taken to the recovery room in stable condition. [facility] Report: Procedure Acuity: Elective Stone Size and Location: Right ureteral orifice, 6-8 mm Ureteral Dilation: No Ureteral Access Sheath Used: No Stone Sent for Analysis: Yes All Stones/Fragments Were Removed with a Basket: Yes Complications: No Preoperative Antibiotics Given: Yes Stent Placed: Yes If Stent Placed, Was String Left Attached: No If Stent Placed, When is it to be Removed: 2 weeks Discharge Medications: Toradol, oxybutynin chloride, tamsulosin
[2021-02-06] MEDS ORDERED: ONDANSETRON 4 MG/2 ML VIAL ONE (10:45)
[2021-02-06] MEDS ORDERED: HYDROcodone/APAP 5-325MG 1 EACH TAB ONE (11:23)
[2021-02-06] MEDS ORDERED: HYDROcodone/APAP 5-325MG 1 EACH TAB PO ONE (11:30)
[2021-02-06 11:57] VITALS: BP 137/70; PULSE 69
--- NOTE | 2021-02-06 12:42 | FL ---
EXAMINATION TYPE: FL guidance operating room DATE OF EXAM: 02/06/2021 FLUOROSCOPY Fluoroscopy time of 3 seconds was used during urologic intervention for right renal calculus. 3 imag e/s document/s the procedure.
== END 2021-02-06 12:30 | disposition home or self-care (01) ==
LOC: OR 05:48
PROVIDERS: ATTEND Urology
DX: N13.2 Hydronephrosis with renal and ureteral calculous obstruction (principal); E11.9 Type 2 diabetes mellitus without complications; I11.9 Hypertensive heart disease without heart failure; E31.21 Multiple endocrine neoplasia [MEN] type I; D35.1 Benign neoplasm of parathyroid gland; E03.9 Hypothyroidism, unspecified; H18.519 Endothelial corneal dystrophy, unspecified eye; Z90.49 Acquired absence of other specified parts of digestive tract; Z98.890 Other specified postprocedural states; Z90.411 Acquired partial absence of pancreas; Z90.81 Acquired absence of spleen; Z94.7 Corneal transplant status; Z87.891 Personal history of nicotine dependence; Z87.442 Personal history of urinary calculi; Z82.49 Family history of ischemic heart disease and other diseases of the circulatory system; Z83.3 Family history of diabetes mellitus; Z80.9 Family history of malignant neoplasm, unspecified; Z82.0 Family history of epilepsy and other diseases of the nervous system; Z84.89 Family history of other specified conditions; Z79.84 Long term (current) use of oral hypoglycemic drugs; Z79.890 Hormone replacement therapy; Z79.899 Other long term (current) drug therapy; Z88.5 Allergy status to narcotic agent; Z88.2 Allergy status to sulfonamides
CPT/HCPCS: 88108; 88305; 82365; 74018; 52356; C2625; C1769; J2250; J1100; J2710; J0690; J2405; J2001; J3010; J0330; J2704

== ENCOUNTER → 2021-03-04 | Outpatient (CLI) | payer MEDICARE ==
--- NOTE | 2021-03-04 15:28 | XR ---
EXAMINATION TYPE: XR KUB DATE OF EXAM: 03/04/2021 COMPARISON: 02/06/2021 INDICATION: Renal calculus TECHNIQUE: Single view abdomen supine view FINDINGS: There is a normal bowel gas pattern. Psoas margins are normal. No organomegaly is present. Multiple small calcifications are scattered within the bilateral kidneys. The largest left measures 0 .7 cm in craniocaudal dimension. Largest on the right is in the inferior pole right kidney measuring 0.4 cm. A right ureteral stone is not excluded just above the sacral alar. Couple of small phleboliths or dis teofilo right ureteral stones are not excluded within the lower pelvis. IMPRESSION: 1. Interval bilateral renal stones. 2. There may be new ureteral calcifications on the right above the sacral ala and within the right he mipelvis.
--- NOTE | 2021-03-04 16:10 | US ---
EXAMINATION TYPE: US kidneys/renal and bladder DATE OF EXAM: 03/04/2021 COMPARISON: CT 01/15/2021, US 10/11/2019 CLINICAL HISTORY: N20.0 Calculus Kidney L R, N13.2 Hydronephrosis R. Right stent removed 2 weeks ago. Hx of splenectomy. EXAM MEASUREMENTS: Right Kidney: 11.0 x 4.5 x 5.3 Left Kidney: 11.0 x 4.6 x 4.0 Right Kidney: Multiple echogenic foci noted with twinkle artifact; largest 0.4 cm. Prominent pelvis. Left Kidney: Anechoic focus seen left upper pole 1.0 x 0.7 x 0.9 cm. Multiple anechoic foci noted wit h twinkle artifact; largest 0.3 cm. Bladder: Anechoic; WNL Bilateral Jets seen: yes IMPRESSION: 1. Bilateral nonobstructing renal stones. 2. Left renal cyst
== END | disposition home or self-care (01) ==
LOC: RADUSWWP 14:03
PROVIDERS: ATTEND Urology
DX: N20.0 Calculus of kidney (principal); N28.1 Cyst of kidney, acquired
CPT/HCPCS: 74018; 76770

== ENCOUNTER → 2021-07-23 | Outpatient (CLI) | payer MEDICARE ==
--- NOTE | 2021-07-23 11:56 | XR ---
EXAMINATION TYPE: XR KUB DATE OF EXAM: 07/23/2021 HISTORY: Pain Comparison: 03/04/2021ingle KUB is submitted for interpretation. Findings: Right renal calculi: Innumerable right-sided renal calculi noted largest of which appears to measure 4 mm. Right ureteral calculi: None Visualized. Left renal calculi: Innumerable left-sided renal calculi the largest noted to measure approximately 5.3 mm. Left ureteral calculi: None Visualized. Pelvic calcifications: None Visualized. Bowel gas pattern is unremarkable. No free air. No mass effects. IMPRESSION: 1. Bilateral nephrolithiasis.
== END | disposition home or self-care (01) ==
LOC: RADXRMAIN 11:32
PROVIDERS: ATTEND Urology
DX: N20.0 Calculus of kidney (principal)
CPT/HCPCS: 74018

== ENCOUNTER → 2021-07-30 | Outpatient (CLI) | payer MEDICARE ==
--- NOTE | 2021-07-30 15:57 | CT ---
EXAMINATION TYPE: CT abdomen pelvis wo con DATE OF EXAM: 07/30/2021 COMPARISON: CT 01/15/2021 HISTORY: Left sided flank and groin pain. CT DLP: 684 mGycm Automated exposure control for dose reduction was used. TECHNIQUE: Helical acquisition of images from the lung bases through the pelvis. FINDINGS: Lack image venous contrast could compromise sensitivity. No evident pneumoperitoneum. LUNG BASES: No significant abnormality is appreciated. AORTA: No significant abnormality is appreciated. LIVER/GB: Patient is post cholecystectomy, liver is unremarkable. PANCREAS: No significant abnormality is seen. SPLEEN: No significant abnormality is seen. ADRENALS: No significant abnormality is seen. KIDNEYS: Multiple calcifications are present within the bilateral kidneys, some scarring, cortical th inning is present at the lower pole the left kidney. No evident hydronephrosis on the right. Phleboli th is thought present adjacent to the right ureter at the midportion. No definite ureteral calculus p resent.. REPRODUCTIVE ORGANS: No significant abnormality is seen. URINARY BLADDER: No significant abnormality is seen. BOWEL: No significant abnormality is seen. FREE AIR: No Free Air is visible. ASCITES: None visible. PELVIC ADENOPATHY: None visualized. RETROPERITONEAL ADENOPATHY: No Retroperitoneal Adenopathy visible. OSSEOUS STRUCTURES: Anterolisthesis grade 1 L4-5, degenerative disc changes are present in the lumba r spine, osteoarthritic change present in the left hip. IMPRESSION: BILATERAL NEPHROLITHIASIS.
== END | disposition home or self-care (01) ==
LOC: RADCTMAIN 15:16
PROVIDERS: ATTEND Urology
DX: N20.0 Calculus of kidney (principal)
CPT/HCPCS: 74176

== ENCOUNTER → 2021-09-18 | Outpatient (CLI) | payer MEDICARE ==
[2021-09-18 15:00] LABS: Eosinophils # (A) 0.13 X 10*3/uL (0.04-0.35); Eosinophils % (A) 1.3 %; HCT 37.5 % (37.2-46.3); HGB 11.8 g/dL (12.0-15.0); Immature Grans, Automated 0.4 %; Lymphocytes # (A) 2.45 X 10*3/uL (0.90-5.00); Lymphocytes % (A) 25.3 %; MCH 31.8 pg (27.0-32.0); MCHC 31.5 g/dL (32.0-37.0); MCV 101.1 fL (80.0-97.0); Mean Platelet Volume 11.3 fL (9.5-12.2); Monocytes % (A) 9.3 %; NRBC Per 100 WBC 0 /100 WBCS (0.0-0.0); Neutrophils # (A) 6.05 X 10*3/uL (1.80-7.70); Neutrophils % (A) 62.7 %; Platelet Count 386 X 10*3/uL (140-440); RBC 3.71 X 10*6/uL (4.10-5.20); RDW 14.5 % (11.5-14.5); WBC 9.67 X 10*3/uL (4.50-10.00)
== END | disposition home or self-care (01) ==
LOC: LABPAT 10:48
PROVIDERS: ATTEND Urology
DX: Z01.812 Encounter for preprocedural laboratory examination (principal); N20.0 Calculus of kidney
CPT/HCPCS: 85025

== ENCOUNTER → 2021-09-18 | Outpatient (CLI) | payer MEDICARE ==
[2021-09-18 15:04] LABS: ALT 17 U/L (8-44); AST 21 U/L (13-35); African American GFR (CKD) 102.1 (60.0-200.0); Albumin 4.3 g/dL (3.8-4.9); Albumin/Globulin Ratio 1.64 (1.60-3.17); Alkaline Phosphatase 67 U/L (41-126); BUN/Creat Ratio 22.15 Ratio (12.00-20.00); Blood Urea Nitrogen 14.4 mg/dL (9.0-27.0); Calcium 9.5 mg/dL (8.7-10.3); Carbon Dioxide 21.8 mmol/L (20.0-27.5); Chloride 108 mmol/L (96-109); Globulin 2.6 g/dL (1.6-3.3); Glucose 124 mg/dL (70-110); Non-African American GFR(CKD) 88.1 (60.0-200.0); Potassium 3.9 mmol/L (3.5-5.5); Sodium 141 mmol/L (135-145); Total Protein 6.9 g/dL (6.2-8.2)
== END | disposition home or self-care (01) ==
LOC: LABWHC1 10:45
PROVIDERS: ATTEND Internal Medicine
DX: E11.9 Type 2 diabetes mellitus without complications (principal); I10 Essential (primary) hypertension; E03.9 Hypothyroidism, unspecified
CPT/HCPCS: 36415; 80053; 83036; 84443

== ENCOUNTER 2021-09-25 05:57 | Day surgery (SDC) | payer MEDICARE ==
--- NOTE | 2021-09-20 07:39 | P.GSHP ---
History of Present Illness H&P Date: 09/20/21 Chief Complaint: Flank pain The patient is a 70-year-old white female with a history of recurrent urolithiasis. She experienced right-sided abdominal pain last fall, and a CT scan showed multiple right renal calculi measuring up to 5 mm in size, as well as right hydroureteronephrosis. This turned out to be due to a calculus impacted at the right ureterovesical junction. She underwent removal of that calculus, as well as renal calculi. This spring, she experienced left-sided discomfort which has resolved. She was treated for an E. coli UTI. CT scan reveals multiple bilateral renal calculi. She has elected to undergo ureteroscopic removal of as many calculi as possible. - Constitutional Constitutional: Denies chills, Denies fever - Gastrointestinal Gastrointestinal: Denies nausea, Denies vomiting - Genitourinary (Female) Genitourinary: Reports flank pain, Reports kidney stones Past Medical History Past Medical History: Diabetes Mellitus, Hypertension, Thyroid Disorder Additional Past Medical History / Comment(s): MEN syndrome type1, diabetes mellitus type 2, hypertension and hypertensive cardiovascular disease, hypothyroidism, Fuchs corneal dystrophy, nephrolithiasis, left inferior parathyroid adenoma.rt ankle sprained with brusing on foot wearing splint History of Any Multi-Drug Resistant Organisms: None Reported Past Surgical History: Adenoidectomy, Appendectomy, Cholecystectomy, Orthopedic Surgery, Tonsillectomy Additional Past Surgical History / Comment(s): Trans obturator mid urethral sling, pancreatic stent, distal pancreatectomy, splenectomy wrist open reduction and internal fixation,rt corneal transplant, right wrist titanium jesse, right ureteroscopy with laser lithotripsy 2020 Past Anesthesia/Blood Transfusion Reactions: Motion Sickness, Postoperative Nausea & Vomiting (PONV) Additional Past Anesthesia/Blood Transfusion Reaction / Comment(s): vertigo Smoking Status: Never smoker - Past Family History Mother Family Medical History: Coronary Artery Disease (CAD), Diabetes Mellitus Father Family Medical History: No Reported History Sister(s) Family Medical History: Cancer, Diabetes Mellitus Brother(s) Family Medical History: Cancer Daughter(s) Family Medical History: No Reported History Son(s) Family Medical History: Neurologic Disorder Additional Family Medical History / Comment(s): traumatic brain injury r/t MVA Medications and Allergies Home Medications Medication Instructions Recorded Confirmed Type Levothyroxine Sodium [Synthroid] 75 mcg PO MOTUWETH 12/12/13 02/06/21 History lisinopriL [Lisinopril] 5 mg PO 1400 12/12/13 02/06/21 History metFORMIN HCL [Glucophage] 500 mg PO BID 12/12/13 02/06/21 History Levothyroxine Sodium [Tirosint] 50 mcg PO SUFRSA 01/06/18 02/06/21 History Ascorbic Acid [Vitamin C] 500 mg PO DAILY 02/04/21 02/06/21 History Aspirin [Adult Low Dose Aspirin EC] 81 mg PO DAILY 02/04/21 02/06/21 History Docusate [Colace] 100 mg PO DAILY 02/04/21 02/06/21 History Ergocalciferol [Vitamin D2 (1250 1,250 mcg PO WATTERS 02/04/21 02/06/21 History Mcg = [id number] Iu)] Vitamin E 400 unit PO DAILY 02/04/21 02/06/21 History Ketorolac [Toradol] 10 mg PO Q6HR PRN #14 tab 02/06/21 Rx Oxybutynin Chloride [Oxybutynin 10 mg PO DAILY #14 tab 02/06/21 Rx Chloride ER] Tamsulosin [Flomax] 0.4 mg PO DAILY #14 cap 02/06/21 Rx Allergies Allergy/AdvReac Type Severity Reaction Status Date / Time Sulfa (Sulfonamide Allergy Rash/Hives Verified 02/06/21 06:46 Antibiotics) codeine AdvReac Nausea & Verified 02/06/21 06:46 Vomiting Surgical - Exam - General well developed, well nourished, no distress - Neck no masses, trachea midline - Respiratory normal respiratory effort - Abdomen Abdomen: soft, non tender, no guarding, no rigid, no rebound - Psychiatric oriented to time, oriented to person, oriented to place, speech is normal, memory intact Results - Imaging CT scan - abdomen: report reviewed, image reviewed Assessment and Plan (1) Kidney stone Status: Acute Code(s): N20.0 - CALCULUS OF KIDNEY SNOMED Code(s): 70232120 Plan: Cystoscopy, bilateral ureteroscopy with Holmium laser lithotripsy and stone basketing, bilateral ureteral stent insertion. Patient is aware of potential risks, which include anesthesia, bleeding, infection, ureteral injury, and inability to remove some calculi. She is aware that she may require a secondary procedure.
[2021-09-23 17:53] VITALS: BMI 23.4
[2021-09-25] MEDS ORDERED: DEXAMETHASONE SOD PHOSPHATE 4 MG/ML 1 ML VIAL IV ONE (06:17)
[2021-09-25] MEDS ORDERED: fentaNYL (PF) 50 MCG/ML 2 ML AMP IV PRN (06:17)
[2021-09-25] MEDS ORDERED: LACTATED RINGERS 1,000 ML IV SCH (06:17)
[2021-09-25] MEDS ORDERED: ONDANSETRON 4 MG/2 ML VIAL IVP ONE (06:17)
[2021-09-25 06:44] LABS: Glucose,Whole Blood 144 mg/dL (70-110)
[2021-09-25] MEDS ORDERED: PROPOFOL 10 MG/ML 20 ML VIAL IV ONE (07:37)
[2021-09-25] MEDS ORDERED: LIDOCAINE 2% INJ 20 MG/ML (2 ML VIAL) ONE (07:37)
[2021-09-25] MEDS ORDERED: fentaNYL (PF) 50 MCG/ML 2 ML AMP ONE (07:37)
[2021-09-25] MEDS ORDERED: GLYCOPYRROLATE 0.2 MG/ML 2 ML VIAL ONE (07:37)
[2021-09-25] MEDS ORDERED: PHENYLEPHRINE-0.9% NACL SYG 1,000 MCG/10 ML SYRINGE ONE (07:37)
[2021-09-25] MEDS ORDERED: MIDAZOLAM 2 MG/2 ML VIAL ONE (07:37)
[2021-09-25] MEDS ORDERED: SUCCINYLCHOLINE CHLORIDE 100 MG/5 ML SYR IV ONE (07:37)
[2021-09-25] MEDS ORDERED: diphenhydrAMINE 50 MG/ML 1 ML VIAL ONE (07:37)
[2021-09-25] MEDS ORDERED: NEOSTIGMINE 1 MG/ML 10 ML VIAL ONE (07:37)
[2021-09-25] MEDS ORDERED: ROCURONIUM 10 MG/ML (5 ML VIAL) IV ONE (07:37)
--- NOTE | 2021-09-25 07:41 | XR ---
EXAMINATION TYPE: XR KUB DATE OF EXAM: 09/25/2021 COMPARISON: 07/23/2021 INDICATION: Renal stones TECHNIQUE: Single view abdomen supine view FINDINGS: There is a normal bowel gas pattern. Fecal debris is: Rectum. Psoas margins are normal. No organomegaly is present. Multiple small bilateral calcifications are present. Largest calcifications at the mid inferior pole right kidney and measures 0.9 cm. Calcifications were present previously. IMPRESSION: 1. Multiple bilateral renal lithiasis.
[2021-09-25] MEDS ORDERED: LACTATED RINGERS 1,000 ML IV ONE (08:30)
[2021-09-25 10:13] VITALS: TEMP 96.6
--- NOTE | 2021-09-25 10:26 | FL ---
Fluoroscopy INDICATION: Pain FINDINGS: Fluoroscopy time: 38 seconds. Images obtained: 4. IMPRESSIONS: 1. Documentation of fluoroscopy.
[2021-09-25 11:26] VITALS: RESP 16
[2021-09-25] MEDS ORDERED: KETOROLAC 15 MG/ML 1 ML VIAL ONE (11:34)
[2021-09-25] MEDS ORDERED: KETOROLAC 15 MG/ML 1 ML VIAL IVP ONE (11:37)
[2021-09-25 11:40] VITALS: PULSE 67
[2021-09-25 12:02] VITALS: BP 131/77
== END 2021-09-25 12:14 | disposition home or self-care (01) ==
LOC: OR 05:57
PROVIDERS: ATTEND Urology
DX: N20.2 Calculus of kidney with calculus of ureter (principal); C65.1 Malignant neoplasm of right renal pelvis; E11.9 Type 2 diabetes mellitus without complications; I11.9 Hypertensive heart disease without heart failure; E03.9 Hypothyroidism, unspecified; Z90.49 Acquired absence of other specified parts of digestive tract; Z80.9 Family history of malignant neoplasm, unspecified; Z82.49 Family history of ischemic heart disease and other diseases of the circulatory system; Z83.3 Family history of diabetes mellitus; Z79.84 Long term (current) use of oral hypoglycemic drugs; Z79.890 Hormone replacement therapy; Z79.899 Other long term (current) drug therapy; Z79.82 Long term (current) use of aspirin; Z88.2 Allergy status to sulfonamides; Z88.5 Allergy status to narcotic agent; Z91.09 Other allergy status, other than to drugs and biological substances; Z87.440 Personal history of urinary (tract) infections
CPT/HCPCS: 52356; 52354; 88305; 82365; 74018; C2625; C1769; J2250; J1200; J1100; J2710; J0690; J2405; J3010; J1885; J2370; J0330; J2704; J2001

== ENCOUNTER → 2021-10-21 | Outpatient (CLI) | payer MEDICARE ==
--- NOTE | 2021-10-21 13:32 | BD ---
EXAMINATION TYPE: Axial Bone Density DATE OF EXAM: 10/21/2021 COMPARISON: 01.08.2014 CLINICAL HISTORY: 71 years year old Female. ICD-10 CODE: M85.80 OSTEOPENIA Height: 59.6 Weight: 127 FRAX RISK QUESTIONS: History of Fracture in Adulthood: YES RISK FACTORS HISTORY OF: History of Wrist Fracture: RT WRIST FX WITH SURGICAL REPAIR APROX AGE 65 YRS KIDNEY SURG TO BOTH SIDES Active: YES Postmenopausal woman: 53 YRS OLD Hyperparathyroidism: NO Adrenal Insufficiency: NO MEDICATIONS: Thyroid Medications: YES, SYNTHROID FOR ABOUT 14 YRS Additional Medications: D3, FLOMAX FOR KIDNEYS, BP MEDS, METFORMIN, ASPIRIN, Additional History: MEN 1 DISEASE, KIDNEYS AND PANCREASE EFFECTED, DIABETIC, RENAL DISEASE, HYPERTEN EAVN, THYROID EXAM MEASUREMENTS: Bone mineral densitometry was performed using the BDNA System. Bone mineral density as measured about the Lumbar spine is: ----- L1-L4(G/cm2): 1.065 T Score Values are as follows: ----- L1: -1.5 ----- L2: -1.4 ----- L3: -0.9 ----- L4: -0.4 ----- L1-L4: -1.0 Bone mineral density has: Decreased -6.1% since study of: 01.08.2014 Bone mineral density about the R hip (g/cm2): 0.987 Bone mineral density about the L hip (g/cm2): 0.994 T Score values are as follows: -----R Neck: -1.1 -----L Neck: -1.0 -----R Total: -0.2 -----L Total: -0.1 Bone mineral density has: Decreased -7.0% since study of: 01.08.2014 FRAX%s: The graph provided illustrates a 15.3% chance for a major osteoporotic fx and a 2.0% chance f or the hips probability for fx in 10 years time. IMPRESSION: Osteopenia (T Score between -2.5 and -1). There is slightly increased risk of fracture and the patient may be considered for treatment. Re-Screen 2-5 years. NOTE: T-SCORE=SD OF THE YOUNG ADULT MEAN.
--- NOTE | 2021-10-22 12:22 | MM ---
Reason for Exam: Screening (asymptomatic). Last mammogram was performed 1 year(s) and 1 month(s) ago. Patient History: Menarche at age 10. First Full-Term at age 15. Postmenopausal. Cyst Aspiration on the Left side. Maternal cousin had breast cancer. Maternal aunt had breast cancer, age 56. Maternal aunt had breast cancer, age 40. Risk Values: Cristina 5 year model risk: 1.3%. NCI Lifetime model risk: 3.1%. Prior Study Comparison: 03/14/2018 Right Diagnostic Mammogram, [facility]. 03/08/2019 Bilateral Screening Mammogram, [facility]. 09/19/2020 Bilateral Screening Mammogram, [facility]. Tissue Density: There are scattered fibroglandular densities. Findings: Analyzed By CAD. There is no suspicious group of microcalcifications or new suspicious mass in either breast. Overall Assessment: Benign, BI-RAD 2 Management: Screening Mammogram of both breasts in 1 year. A clinical breast exam by your physician is recommended on an annual basis and results should be correlated with mammographic findings. Electronically signed and approved by: Sunil Becker M.D. Radiologis
== END | disposition home or self-care (01) ==
LOC: RADBDWWP 12:31
PROVIDERS: ATTEND Internal Medicine
DX: Z12.31 Encounter for screening mammogram for malignant neoplasm of breast (principal); M85.89 Other specified disorders of bone density and structure, multiple sites; Z78.0 Asymptomatic menopausal state; Z80.3 Family history of malignant neoplasm of breast
CPT/HCPCS: 77063; 77067; 77080

== ENCOUNTER → 2021-12-02 | Outpatient (CLI) | payer MEDICARE ==
--- NOTE | 2021-12-03 07:21 | XR ---
EXAMINATION TYPE: XR KUB DATE OF EXAM: 12/02/2021 HISTORY: Pain Comparison: None.Single KUB is submitted for interpretation. Findings: Right renal calculi: Multiple right-sided renal calculi are noted measuring up to 4 mm upper pole rig ht kidney. Right ureteral calculi: Mid right ureteral calculus is difficult to exclude at the L5 level measuring 3 mm. Left renal calculi: Innumerable left-sided renal calculi noted measuring up to 3.5 mm. Left ureteral calculi: None Visualized. Pelvic calcifications: Multiple probable phleboliths seen within the pelvis. Bowel gas pattern is unremarkable. No free air. No mass effects. IMPRESSION: 1. As above
== END | disposition home or self-care (01) ==
LOC: RADXRMAIN 16:52
PROVIDERS: ATTEND Urology
DX: N20.0 Calculus of kidney (principal)
CPT/HCPCS: 74018

== ENCOUNTER → 2021-12-02 | Outpatient (CLI) | payer MEDICARE ==
--- NOTE | 2021-12-03 07:18 | US ---
EXAMINATION TYPE: US kidneys/renal and bladder DATE OF EXAM: 12/02/2021 COMPARISON: US 2020 CLINICAL HISTORY: N20.0 CALCULUS OF KIDNEYS. EXAM MEASUREMENTS: Right Kidney: 11.2 x 4.3 x 4.5 cm Left Kidney: 10.9 x 5.2 x 4.5 cm Right Kidney: multiple stones with largest measuring 0.8cm Left Kidney: multiple stones with largest measuring 0.8cm Bladder: wnl Bilateral Jets seen: yes There is no evidence for hydronephrosis at this point in time. No masses are identified. The urinar y bladder is anechoic. Bilateral ureteral jets are seen. IMPRESSION: Bilateral nonobstructing nephrolithiasis.
== END | disposition home or self-care (01) ==
LOC: RADUSWWP 16:21
PROVIDERS: ATTEND Urology
DX: N20.0 Calculus of kidney (principal)
CPT/HCPCS: 76770

== ENCOUNTER → 2021-12-04 | Outpatient (CLI) | payer MEDICARE | END | disposition home or self-care (01) | LOC: RADUSWWP 07:32 | PROVIDERS: ATTEND Internal Medicine | DX: Z53.9 Procedure and treatment not carried out, unspecified reason (principal) ==

== ENCOUNTER → 2022-01-27 | Outpatient (CLI) | payer MEDICARE | END | disposition home or self-care (01) | LOC: LABPAT 08:55 | PROVIDERS: ATTEND Urology | DX: Z53.9 Procedure and treatment not carried out, unspecified reason (principal) ==

== ENCOUNTER → 2022-01-27 | Outpatient (CLI) | payer MEDICARE ==
[2022-01-27 14:30] LABS: Basophils # (A) 0.11 X 10*3/uL (0.00-0.10); Eosinophils # (A) 0.39 X 10*3/uL (0.04-0.35); Eosinophils % (A) 3.6 %; HCT 38.7 % (37.2-46.3); HGB 12.7 g/dL (12.0-15.0); Immature Grans, Automated 0.3 %; Lymphocytes # (A) 3.87 X 10*3/uL (0.90-5.00); Lymphocytes % (A) 35.9 %; MCH 32.4 pg (27.0-32.0); MCHC 32.8 g/dL (32.0-37.0); MCV 98.7 fL (80.0-97.0); Mean Platelet Volume 10.9 fL (9.5-12.2); Monocytes % (A) 8.4 %; NRBC Per 100 WBC 0 /100 WBCS (0.0-0.0); Neutrophils # (A) 5.47 X 10*3/uL (1.80-7.70); Neutrophils % (A) 50.8 %; Platelet Count 284 X 10*3/uL (140-440); RBC 3.92 X 10*6/uL (4.10-5.20); RDW 13.6 % (11.5-14.5); WBC 10.77 X 10*3/uL (4.50-10.00)
[2022-01-27 14:43] LABS: Appearance,Urine Cloudy (Clear); Bilirubin,Urine Negative (Negative); Blood,Urine Negative (Negative); Color,Urine Yellow (Yellow); Ketones,Urine Negative (Negative); Nitrite,Urine Negative (Negative); PH, Urine 7.5 (5.0-8.0); Specific Gravity,Urine 1.009 (1.001-1.030); Urobilinogen,Urine 0.2 (0.2,1.0)
[2022-01-27 15:05] LABS: Bacteria,Urine None Seen /HPF (None Seen)
[2022-01-27 15:18] LABS: % Iron Saturation 38.57 (12.00-45.00); ALT 21 U/L (8-44); AST 19 U/L (13-35); African American GFR (CKD) 99.6 (60.0-200.0); Albumin 4.6 g/dL (3.8-4.9); Albumin/Globulin Ratio 1.84 (1.60-3.17); Alkaline Phosphatase 81 U/L (41-126); BUN/Creat Ratio 17.29 Ratio (12.00-20.00); Blood Urea Nitrogen 12.1 mg/dL (9.0-27.0); Carbon Dioxide 25.3 mmol/L (20.0-27.5); Chloride 102 mmol/L (96-109); Chol/HDL Ratio 3.16 Ratio; Ferritin 90.1 ng/mL (10.0-291.0); Globulin 2.5 g/dL (1.6-3.3); Glucose 140 mg/dL (70-110); Iron 135 ug/dL (50-170); LDL Cholesterol,Calculated 90.2 mg/dL (0.0-131.0); Potassium 4.4 mmol/L (3.5-5.5); Sodium 138 mmol/L (135-145); Total Iron Binding Capacity 350 ug/dL (228-460); Total Protein 7.1 g/dL (6.2-8.2)
== END | disposition home or self-care (01) ==
LOC: LABWHC1 08:57
PROVIDERS: ATTEND Internal Medicine
DX: E11.9 Type 2 diabetes mellitus without complications (principal); E03.9 Hypothyroidism, unspecified; E31.21 Multiple endocrine neoplasia [MEN] type I; D64.9 Anemia, unspecified
CPT/HCPCS: 36415; 80053; 80061; 81001; 82306; 82607; 82728; 82746; 83036; 83540; 83550; 83970; 84146; 84439; 84443; 85025; 86376; 87086

== ENCOUNTER → 2022-02-18 | Outpatient (CLI) | payer MEDICARE ==
--- NOTE | 2022-02-18 10:11 | XR ---
EXAMINATION TYPE: XR chest 2V DATE OF EXAM: 02/18/2022 COMPARISON: NONE HISTORY: Cough for 20 days. Presurgical study. TECHNIQUE: Frontal and lateral views of the chest are obtained. FINDINGS: There is no suspicious focal air space opacity, pleural effusion, or pneumothorax seen. T he cardiac silhouette size is within normal limits. Multilevel spurring in the thoracic spine. Cholec ystectomy clips are noted. IMPRESSION: No acute cardiopulmonary process.
== END | disposition home or self-care (01) ==
LOC: RADXRMAIN 09:27
PROVIDERS: ATTEND Internal Medicine
DX: Z01.818 Encounter for other preprocedural examination (principal); R05.9 Cough, unspecified
CPT/HCPCS: 71046

== ENCOUNTER 2022-02-19 14:39 | Day surgery (SDC) | payer MEDICARE ==
--- NOTE | 2022-02-18 06:48 | P.GSHP ---
History of Present Illness H&P Date: 02/18/22 Chief Complaint: Kidney stones The patient is a 71-year-old white female with a history of recurrent urolithiasis. She experienced right-sided abdominal pain last fall, and a CT scan showed multiple right renal calculi measuring up to 5 mm in size, as well as right hydroureteronephrosis. This turned out to be due to a calculus impacted at the right ureterovesical junction. She underwent removal of that calculus, as well as renal calculi. She was found to have a papillary tumor within the right renal pelvis. This was treated with laser ablation, and pathology was nondiagnostic. This spring, CT scan revealed multiple bilateral renal calculi and she underwent removal of many of these calculi in September 2021. 2 small right renal pelvic papillary tumors were treated with laser ablation at that time. Pathology revealed low-grade urothelial carcinoma. She now comes for cystoscopy, right retrograde pyelogram, right ureteroscopy with laser lithotripsy of any calculi seen and laser ablation of any tumors seen. A ureteral stent will be placed. - Constitutional Constitutional: Denies chills, Denies fever - Respiratory Respiratory: Reports cough - Gastrointestinal Gastrointestinal: Reports nausea, Reports vomiting - Genitourinary (Female) Genitourinary: Reports kidney stones, Denies hematuria Past Medical History Past Medical History: Diabetes Mellitus, Hypertension, Thyroid Disorder Additional Past Medical History / Comment(s): MEN syndrome type 1, diabetes mellitus type 2, hypertension and hypertensive cardiovascular disease, hypothyroidism, Fuchs corneal dystrophy, nephrolithiasis, left inferior parathyroid adenoma, right ankle sprained with bruising on foot wearing splint History of Any Multi-Drug Resistant Organisms: None Reported Past Surgical History: Adenoidectomy, Appendectomy, Cholecystectomy, Orthopedic Surgery, Tonsillectomy Additional Past Surgical History / Comment(s): 09/25/21LITHOTRIPSY. Trans obturator mid urethral sling, pancreatic stent, distal pancreatectomy, splenectomy wrist open reduction and internal fixation,rt corneal transplant, rt wrist titanium jesse Past Anesthesia/Blood Transfusion Reactions: Motion Sickness, Postoperative Nausea & Vomiting (PONV) Additional Past Anesthesia/Blood Transfusion Reaction / Comment(s): vertigo Past Psychological History: No Psychological Hx Reported Smoking Status: Never smoker Past Alcohol Use History: Occasional Additional Past Alcohol Use History / Comment(s): quit smoking >20yrs ago,social smoker as teenager Past Drug Use History: None Reported - Past Family History Mother Family Medical History: Coronary Artery Disease (CAD), Diabetes Mellitus Father Family Medical History: No Reported History Sister(s) Family Medical History: Cancer, Diabetes Mellitus Brother(s) Family Medical History: Cancer Daughter(s) Family Medical History: Pulmonary Embolus Son(s) Family Medical History: Deep Vein Thrombosis (DVT), Neurologic Disorder Additional Family Medical History / Comment(s): traumatic brain injury r/t MVA Medications and Allergies Home Medications Medication Instructions Recorded Confirmed Type Levothyroxine Sodium [Synthroid] 75 mcg PO MOTUWETH 12/12/13 02/17/22 History lisinopriL [Lisinopril] 5 mg PO 1400 12/12/13 02/17/22 History metFORMIN HCL [Glucophage] 500 mg PO BID 12/12/13 02/17/22 History Levothyroxine Sodium [Tirosint] 50 mcg PO SUFRSA 01/06/18 02/17/22 History Ascorbic Acid [Vitamin C] 500 mg PO DAILY 02/04/21 02/17/22 History Aspirin [Adult Low Dose Aspirin EC] 81 mg PO DAILY 02/04/21 02/17/22 History Docusate [Colace] 100 mg PO DAILY 02/04/21 02/17/22 History Ergocalciferol [Vitamin D2 (1250 1,250 mcg PO WATTERS 02/04/21 02/17/22 History Mcg = 47875 Iu)] Kincaid-3/Dha/Epa/Fish Oil [Fish Oil 1 each PO DAILY 09/23/21 02/17/22 History 1,000 mg Softgel] hydrOXYzine pamoate [Vistaril] 25 mg PO QID PRN #10 cap 09/25/21 02/17/22 Rx Allergies Allergy/AdvReac Type Severity Reaction Status Date / Time Sulfa (Sulfonamide Allergy Rash/Hives Verified 02/17/22 11:44 Antibiotics) codeine AdvReac Nausea & Verified 02/17/22 11:44 Vomiting Surgical - Exam - General well developed, well nourished, no distress - Neck no masses, trachea midline - Respiratory normal respiratory effort - Abdomen Abdomen: soft, non tender, no guarding, no rigid, no rebound - Psychiatric oriented to time, oriented to person, oriented to place, speech is normal, memory intact Assessment and Plan (1) Kidney stone Status: Acute Code(s): N20.0 - CALCULUS OF KIDNEY SNOMED Code(s): 81781690 (2) Malignant neoplasm of right renal pelvis Status: Acute Code(s): C65.1 - MALIGNANT NEOPLASM OF RIGHT RENAL PELVIS SNOMED Code(s): 833643770 Plan: Cystoscopy, right ureteroscopy with Holmium laser lithotripsy and Holmium laser ablation of tumors, right ureteral stent insertion. Patient is aware of potential risks, which include anesthesia, bleeding, infection, ureteral injury, and inability to remove some calculi.
[2022-02-19] MEDS ORDERED: HYDROmorphone 0.5 MG/0.5 ML SYRINGE IVP PRN (15:06)
[2022-02-19] MEDS ORDERED: ONDANSETRON 4 MG/2 ML VIAL IVP ONE (15:06)
[2022-02-19] MEDS ORDERED: LACTATED RINGERS 1,000 ML IV SCH (15:06)
[2022-02-19] MEDS ORDERED: DEXAMETHASONE SOD PHOSPHATE 4 MG/ML 1 ML VIAL IV ONE (15:06)
--- NOTE | 2022-02-19 15:09 | XR ---
EXAMINATION TYPE: XR KUB DATE OF EXAM: 02/19/2022 2:54 PM INDICATION: Patient age:Female; 71 years old; Reason for study: N20.0 right renal calculi; COMPARISON: Multiple priors most recently 12/02/2021. TECHNIQUE: One radiographic view of the abdomen was obtained. FINDINGS: Multiple calcific densities project over the kidneys bilaterally. Nonspecific bowel gas pat tern. Multilevel disc degeneration changes of the spine. Right upper quadrant was sec in the globes. Impression: Bilateral calcific densities projecting over the kidneys are not significantly changed from priors.
[2022-02-19 15:27] VITALS: RESP 16
[2022-02-19 15:45] LABS: Glucose,Whole Blood 108 mg/dL (70-110)
[2022-02-19] MEDS ORDERED: fentaNYL (PF) 50 MCG/ML 2 ML AMP ONE (15:50)
[2022-02-19] MEDS ORDERED: MIDAZOLAM 2 MG/2 ML VIAL ONE (15:50)
[2022-02-19] MEDS ORDERED: PROPOFOL 10 MG/ML 20 ML VIAL IV ONE (15:50)
[2022-02-19] MEDS ORDERED: LIDOCAINE 2% INJ 20 MG/ML (2 ML VIAL) ONE (15:50)
[2022-02-19] MEDS ORDERED: SUCCINYLCHOLINE CHLORIDE 200 MG/10 ML VIAL IV ONE (15:50)
[2022-02-19] MEDS ORDERED: IOPAMIDOL-370 50ML BTL MISCELLANE ONE (16:13)
[2022-02-19 17:20] VITALS: TEMP 97
--- NOTE | 2022-02-19 17:51 | P.OP ---
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 She experienced right-sided abdominal pain last fall, and a CT scan showed multiple right renal calculi measuring up to 5 mm in size, as well as right hydroureteronephrosis. This turned out to be due to a calculus impacted at the right ureterovesical junction. She underwent removal of that calculus, as well as renal calculi. She was found to have a papillary tumor within the right renal pelvis. This was treated with laser ablation, and pathology was nondiagnostic. This spring, CT scan revealed multiple bilateral renal calculi and she underwent removal of many of these calculi in September 2021. 2 small right renal pelvic papillary tumors were treated with laser ablation at that time. Pathology revealed low-grade urothelial carcinoma. She now comes for cystoscopy, right retrograde pyelogram, right ureteroscopy with laser lithotripsy of any calculi seen and laser ablation of any tumors seen. A ureteral stent will be placed. Operative Findings: 2 small right lower pole renal calculi, both fragmented. 5 areas of low-grade tumors, most prominent in the right upper pole infundibulum, treated with laser ablation. Description of Procedure: The patient was taken to the operating room and placed in the dorsolithotomy position, with legs supported in Reji stirrups. The external genitalia was prepped and draped sterilely. The 30 lens was used to introduce the 21-Mac[place] cystoscopic sheath through the urethra and into the bladder under direct vision. The bladder was examined in its entirety. Both ureteral orifices appeared normal, and clear urine effluxed from both. No tumors were seen. Using a 10-Macanese cone-tipped catheter, a right retrograde pyelogram was performed. The ureter was normal in caliber, with no filling defects. However, a filling defect was seen within the right upper pole infundibulum. A 0.038 inch Glidewire was passed through the cystoscope. The right ureteral orifice was cannulated, and the Glidewire was advanced up to the right renal pelvis. The cystoscope was removed, and an 11/13-Macanese ureteral access catheter was passed over the wire, up to the proximal ureter. The Chrends flexible ureteroscope was passed through the ureteral access catheter sheath and advanced under direct vision, up to the right renal pelvis. Each calyx was examined. 2 small calculi were seen within a right lower pole calyx, both adherent to the mucosa. 5 papillary tumors were identified. All had a low-grade appearance. The largest was flat and located within the right upper pole infundibulum. Tumor was seen within that calyx. Additional tumors were seen and mid pole calyces. The 200 micron Holmium laser probe was passed through the ureteroscope, and the calculi were fragmented. Attention was then paid to the tumors, which were removed via laser ablation. However, due to angulation issues one of the mid pole tumors was likely ablated incompletely. The remaining tumors appear to have been ablated completely. Once this was completed, the ureteroscope was removed. The Glidewire was passed through the ureteral access catheter sheath, which was removed. The Glidewire was then backloaded into the cystoscope, which was passed into the bladder. A 24 cm, 4.8-Macanese double-J ureteral stent was placed over the wire. Proper stent positioning was verified fluoroscopically and endoscopically. The bladder was emptied and the cystoscope removed. The patient tolerated the procedure well and was taken to the recovery room in stable condition.
[2022-02-19 18:55] VITALS: BP 165/79; PULSE 82
--- NOTE | 2022-02-19 20:05 | FL ---
EXAMINATION TYPE: FL urography retrograde DATE OF EXAM: 02/19/2022 COMPARISON: NONE HISTORY: Right-sided kidney stone. TECHNIQUE: Fluoroscopy. FINDINGS: Fluoroscopic guidance was provided during kidney stone treatment procedure performed by Dr Jackeline Rodriguez. A total of 48 seconds of fluoroscopic time was utilized during the procedure and 10 spot i mages are acquired. Images acquired show access via right UVJ with contrast opacification of the uret er and collecting system and subsequent advancement of guidewire for a ureter stent insertion. IMPRESSION: As Above.
== END 2022-02-19 19:00 | disposition home or self-care (01) ==
LOC: OR 14:39
PROVIDERS: ATTEND Urology
DX: N20.0 Calculus of kidney (principal); C65.1 Malignant neoplasm of right renal pelvis; I10 Essential (primary) hypertension; E11.9 Type 2 diabetes mellitus without complications; E07.9 Disorder of thyroid, unspecified; C67.9 Malignant neoplasm of bladder, unspecified; E03.9 Hypothyroidism, unspecified; Z79.82 Long term (current) use of aspirin; Z79.84 Long term (current) use of oral hypoglycemic drugs
CPT/HCPCS: 74420; 74018; 52356; C2625; C1758; C1769; J2250; J0330; J1100; J0690; J2405; J3010; J2704; Q9967; J2001

== ENCOUNTER → 2022-06-16 | Day surgery (SDC) | payer MEDICARE, BC | LOC: CATHCVL 12:37 | PROVIDERS: ATTEND Internal Medicine Infectious Disease | DX: N39.0 Urinary tract infection, site not specified (principal) | CPT/HCPCS: 36556; 36410; 76937; C1751 ==

== ENCOUNTER 2022-07-16 12:30 | Day surgery (SDC) | payer MEDICARE, BC ==
--- NOTE | 2022-07-15 18:58 | P.GSHP ---
History of Present Illness H&P Date: 07/15/22 Chief Complaint: Urothelial carcinoma of right renal pelvis The patient is a 71-year-old white female with a history of recurrent urolithiasis. She experienced right-sided abdominal pain in 2020, and a CT scan showed multiple right renal calculi measuring up to 5 mm in size, as well as right hydroureteronephrosis. This turned out to be due to a calculus impacted at the right ureterovesical junction. She underwent removal of that calculus, as well as renal calculi. She was found to have a papillary tumor within the right renal pelvis. This was treated with laser ablation, and pathology was nondiagnostic. Last spring, CT scan revealed multiple bilateral renal calculi and she underwent removal of many of these calculi in September 2021. 2 small right renal pelvic papillary tumors were treated with laser ablation at that time. Pathology revealed low-grade urothelial carcinoma. She underwent laser ablation of additional right renal pelvic tumors in February 2022. She subsequently was treated with a 6 week course of Jelmyto. She now comes for cystoscopy, right retrograde pyelogram, right ureteroscopy with laser lithotripsy of any calculi seen and laser ablation of any tumors seen. A ureteral stent will be placed. - Constitutional Constitutional: Denies chills, Denies fever - Genitourinary (Female) Genitourinary: Denies dysuria, Denies hematuria Past Medical History Past Medical History: Diabetes Mellitus, Hypertension, Thyroid Disorder Additional Past Medical History / Comment(s): MEN syndrome type 1, diabetes mellitus type 2, hypertension and hypertensive cardiovascular disease, hypothyroidism, Fuchs corneal dystrophy, nephrolithiasis, left inferior parathyroid adenoma, right ankle sprained with bruising on foot wearing splint, bacterial inf after last tube removed had iv anbx tx History of Any Multi-Drug Resistant Organisms: None Reported Past Surgical History: Adenoidectomy, Appendectomy, Cholecystectomy, Orthopedic Surgery, Tonsillectomy Additional Past Surgical History / Comment(s): 09/25/21LITHOTRIPSY. Trans obtur ator mid urethral sling, pancreatic stent, distal pancreatectomy, splenectomy wrist open reduction and internal fixation,rt corneal transplant, rt wrist titanium jesse Past Anesthesia/Blood Transfusion Reactions: Motion Sickness, Postoperative Nausea & Vomiting (PONV) Additional Past Anesthesia/Blood Transfusion Reaction / Comment(s): vertigo Smoking Status: Never smoker - Past Family History Mother Family Medical History: Coronary Artery Disease (CAD), Diabetes Mellitus Father Family Medical History: No Reported History Sister(s) Family Medical History: Cancer, Diabetes Mellitus Brother(s) Family Medical History: Cancer Daughter(s) Family Medical History: Pulmonary Embolus Son(s) Family Medical History: Deep Vein Thrombosis (DVT), Neurologic Disorder Additional Family Medical History / Comment(s): traumatic brain injury r/t MVA Medications and Allergies Home Medications Medication Instructions Recorded Confirmed Type Levothyroxine Sodium [Synthroid] 75 mcg PO MOTUWETH 12/12/13 07/10/22 History lisinopriL [Lisinopril] 5 mg PO 1400 12/12/13 07/10/22 History metFORMIN HCL [Glucophage] 500 mg PO BID 12/12/13 07/10/22 History Levothyroxine Sodium [Tirosint] 50 mcg PO SUFRSA 01/06/18 07/10/22 History Ascorbic Acid [Vitamin C] 500 mg PO DAILY 02/04/21 07/10/22 History Aspirin [Adult Low Dose Aspirin EC] 81 mg PO DAILY 02/04/21 07/10/22 History Docusate [Colace] 100 mg PO DAILY 02/04/21 07/10/22 History Ergocalciferol [Vitamin D2 (1250 1,250 mcg PO WATTERS 02/04/21 07/10/22 History Mcg = [id number] Iu)] [place]-3/Dha/Epa/Fish Oil [Fish Oil 1 each PO DAILY 09/23/21 07/10/22 History 1,000 mg Softgel] hydrOXYzine pamoate [Vistaril] 25 mg PO QID PRN #10 cap 09/25/21 07/10/22 Rx HYDROcodone/APAP 5-325MG [Bradley 1 - 2 tab PO Q4HR PRN #10 tab 02/19/22 07/10/22 Rx 5-325] Ketorolac [Toradol] 10 mg PO Q6HR PRN #10 tab 02/19/22 07/10/22 Rx Allergies Allergy/AdvReac Type Severity Reaction Status Date / Time Sulfa (Sulfonamide Allergy Rash/Hives Verified 07/10/22 11:47 Antibiotics) codeine AdvReac Nausea & Verified 07/10/22 11:47 Vomiting phenazopyridine AdvReac Abdominal Verified 07/10/22 11:47 Pain Surgical - Exam - General well developed, well nourished, no distress - Respiratory normal respiratory effort - Abdomen Abdomen: soft, non tender, no guarding, no rigid, no rebound - Musculoskeletal 1 cm cutaneous ulcer over coccyx. - Psychiatric oriented to time, oriented to person, oriented to place, speech is normal, memory intact Assessment and Plan (1) Malignant neoplasm of right renal pelvis Status: Acute Code(s): C65.1 - MALIGNANT NEOPLASM OF RIGHT RENAL PELVIS SNOMED Code(s): 105799663 Plan: Cystoscopy, right retrograde pyelogram, right ureteroscopy with possible laser lithotripsy, possible laser ablation of recurrent tumors, right ureteral stent insertion. The patient is aware of potential risks, which include anesthesia, bleeding, infection, and ureteral injury.
[~2022-07-16 12:30] MED LIST changes: +DEXAMETHASONE SOD PHOSPHATE 4 MG/ML 1 ML VIAL IV ONE; +HYDROmorphone 0.5 MG/0.5 ML SYRINGE IVP PRN; +ONDANSETRON 4 MG/2 ML VIAL IVP ONE
[2022-07-16] MEDS ORDERED: LACTATED RINGERS 1,000 ML IV ONE ×2 (13:00→15:23)
[2022-07-16 13:08] LABS: Glucose,Whole Blood 128 mg/dL (70-110)
[2022-07-16] MEDS ORDERED: DEXAMETHASONE SOD PHOSPHATE 4 MG/ML 1 ML VIAL IVP ONE (13:24)
[2022-07-16] MEDS ORDERED: ONDANSETRON 4 MG/2 ML VIAL IVP ONE (13:24)
[2022-07-16] MEDS ORDERED: NEOSTIGMINE 1 MG/ML 10 ML VIAL ONE (14:25)
[2022-07-16] MEDS ORDERED: fentaNYL (PF) 50 MCG/ML 2 ML AMP ONE (14:25)
[2022-07-16] MEDS ORDERED: ePHEDrine 50 MG/ML 1 ML VIAL ONE (14:25)
[2022-07-16] MEDS ORDERED: ROCURONIUM 10 MG/ML (5 ML VIAL) IV ONE (14:25)
[2022-07-16] MEDS ORDERED: SUCCINYLCHOLINE CHLORIDE 200 MG/10 ML VIAL IV ONE (14:25)
[2022-07-16] MEDS ORDERED: LIDOCAINE 2% INJ 20 MG/ML (2 ML VIAL) ONE (14:25)
[2022-07-16] MEDS ORDERED: MIDAZOLAM 2 MG/2 ML VIAL ONE (14:25)
[2022-07-16] MEDS ORDERED: GLYCOPYRROLATE 0.2 MG/ML 2 ML VIAL ONE (14:25)
[2022-07-16] MEDS ORDERED: PROPOFOL 10 MG/ML 20 ML VIAL IV ONE (14:25)
[2022-07-16] MEDS ORDERED: IOPAMIDOL-370 100ML BTL MISCELLANE ONE (14:53)
[2022-07-16 16:03] VITALS: TEMP 97
[2022-07-16 16:13] VITALS: RESP 16
--- NOTE | 2022-07-16 16:27 | P.OP ---
Date of Procedure: 07/16/22 Preoperative Diagnosis: Urothelial carcinoma of the right renal pelvis Postoperative Diagnosis: Urothelial carcinoma of the right renal pelvis, right renal calculus Procedure(s) Performed: Cystoscopy, right retrograde pyelogram, right ureteroscopy with Holmium laser lithotripsy and laser ablation of tumor, stone basketing, right ureteral stent insertion Anesthesia: ELIZABETH Surgeon: Linus Rodriguez Estimated Blood Loss (ml): 5 IV fluids (ml): 700 Pathology: none sent Condition: stable Disposition: PACU Indications for Procedure: The patient is a 71-year-old white female with a history of recurrent urolithiasis. She experienced right-sided abdominal pain in 2020, and a CT scan showed multiple right renal calculi measuring up to 5 mm in size, as well as right hydroureteronephrosis. This turned out to be due to a calculus impacted at the right ureterovesical junction. She underwent removal of that calculus, as well as renal calculi. She was found to have a papillary tumor within the right renal pelvis. This was treated with laser ablation, and pathology was nondiagnostic. Last spring, CT scan revealed multiple bilateral renal calculi and she underwent removal of many of these calculi in September 2021. 2 small right renal pelvic papillary tumors were treated with laser ablation at that time. Pathology revealed low-grade urothelial carcinoma. She underwent laser ablation of additional right renal pelvic tumors in February 2022. She subsequently was treated with a 6 week course of Jelmyto. She now comes for cystoscopy, right retrograde pyelogram, right ureteroscopy with laser lithotripsy of any calculi seen and laser ablation of any tumors seen. A ureteral stent will be placed. Operative Findings: Normal retrograde pyelogram. Subtle mucosal irregularity within a right lower pole calyx. A 3 mm right lower pole calyceal stone, fragmented and removed via Stone basketing. Description of Procedure: The patient was taken to the operating room and placed in the dorsolithotomy position, with legs supported in Reji stirrups. The external genitalia was prepped and draped sterilely. The 30 lens was used to introduce the 22-[place]orz cystoscopic sheath through the urethra and into the bladder under direct vision. The bladder was examined in its entirety. Both ureteral orifices were normal anatomic location and configuration, and clear urine effluxed from both. No tumors or foreign bodies were seen. Using a 10-Tu[place] cone-tipped catheter, a right retrograde pyelogram was performed. No abnormalities were seen. Specifically, the ureter was normal in course and caliber, without filling defects. Likewise, there were no renal pelvic filling defects, and no evidence of hydronephrosis. A 0.038 inch Glidewire was passed through the cystoscope. The right ureteral orifice was cannulated, and the Glidewire was advanced up to the renal pelvis. The cystoscope was removed, and an 11/13-Tu[place]uan ureteral access catheter was passed over the wire, up to the proximal ureter. The flexible ureteroscope was then passed through the ureteral access catheter sheath, up to the renal pelvis. Each calyx was examined. Scarring of the upper pole infundibulum was noted due to previous laser ablation. No papillary tumors or calculi were seen in till a lower pole calyx was examined. Within that calyx was subtle mucosal irregularity, as well as a 3 mm calculus. Due to angulation issues, it was not possible to biopsy the area of mucosal irregularity using the [place]ha forceps. The 200 micron Holmium laser probe was passed through the ureteroscope, but the mucosal irregularity could only be partially treated with laser ablation (again due to angulation issues). The calculus was fragmented and removed using a 1.5- [place] 0 tip basket. The Glidewire was passed through the ureteral access catheter sheath, which was removed. The Glidewire was backloaded into the cystoscope, which was passed into the bladder. A 24 cm, 4.8-Tu[place] double-J ureteral stent was placed over the wire. Proper stent positioning was verified fluoroscopically and endoscopically. The bladder was emptied and the cystoscope removed. The patient tolerated the procedure well and was taken to the recovery room in stable condition.
[2022-07-16 16:43] LABS: Glucose,Whole Blood 114 mg/dL (70-110)
[2022-07-16 16:49] VITALS: BP 161/88; PULSE 61
--- NOTE | 2022-07-16 20:51 | FL ---
EXAMINATION TYPE: FL guidance operating room DATE OF EXAM: 07/16/2022 CLINICAL HISTORY: Malignancy right renal pelvis TECHNIQUE: Fluoroscopy. COMPARISON: None. FINDINGS: Fluoroscopic guidance was provided during procedure performed by Dr. Rodriguez. A total of 42 seconds of fluoroscopic time was utilized during the procedure and 9 spot images were a cquired and stored on PACS. Total DAP 1.2807 Gycmcm IMPRESSION: As Above.
== END 2022-07-16 17:28 | disposition home or self-care (01) ==
LOC: OR 12:30
PROVIDERS: ATTEND Urology
DX: C65.1 Malignant neoplasm of right renal pelvis (principal); N20.0 Calculus of kidney; E11.9 Type 2 diabetes mellitus without complications; I10 Essential (primary) hypertension; E03.9 Hypothyroidism, unspecified; Z90.49 Acquired absence of other specified parts of digestive tract; Z90.89 Acquired absence of other organs; Z98.890 Other specified postprocedural states; Z82.49 Family history of ischemic heart disease and other diseases of the circulatory system; Z83.3 Family history of diabetes mellitus; Z79.84 Long term (current) use of oral hypoglycemic drugs; Z79.82 Long term (current) use of aspirin; Z79.899 Other long term (current) drug therapy
CPT/HCPCS: 52356; 52354; C2625; C1758; C1769; J2250; J0330; J1100; J2710; J0690; J2405; J3010; J2704; Q9967; J2001

== ENCOUNTER → 2022-10-12 | Outpatient (CLI) | payer MEDICARE ==
[2022-10-13 02:29] LABS: HCT 40.8 % (37.2-46.3); HGB 12.7 d/dL (12.0-15.0); MCH 32.6 pg (27.0-32.0); MCHC 31.1 d/dL (32.0-37.0); MCV 104.6 FL (80.0-97.0); Mean Platelet Volume 11.4 FL (9.5-12.2); NRBC Per 100 WBC 0 X 10*3/uL (0.00-0.01); Platelet Count 438 X 10*3/uL (140-440); RDW 14.3 % (11.5-14.5)
[2022-10-13 02:30] LABS: Basophils # (A) 0.09 X 10*3/uL (0.00-0.10); Eosinophils # (A) 0.15 X 10*3/uL (0.04-0.35); Eosinophils % (A) 1.6 %; Lymphocytes # (A) 2.95 X 10*3/uL (0.90-5.00); Lymphocytes % (A) 32.4 %; Monocytes # (A) 0.89 X 10*3/uL (0.20-1.00); Monocytes % (A) 9.8 %
[2022-10-13 02:34] LABS: BUN/Creat Ratio 20.75 Ratio (12.00-20.00); Blood Urea Nitrogen 16.6 mg/dL (9.0-27.0); Carbon Dioxide 23.7 mmol/L (21.6-31.8); Chloride 106 mmol/L (96-109); Glucose 138 mg/dL (70-110); Potassium 4.5 mmol/L (3.5-5.5); Sodium 142 mmol/L (135-145)
== END | disposition home or self-care (01) ==
LOC: LABWHC1 13:24
PROVIDERS: ATTEND Urology
DX: Z01.812 Encounter for preprocedural laboratory examination (principal)
CPT/HCPCS: 36415; 80048; 85025; 87086

== ENCOUNTER → 2022-11-09 | Outpatient (CLI) | payer MEDICARE ==
--- NOTE | 2022-11-10 08:59 | MM ---
Reason for Exam: Screening (asymptomatic). Last mammogram was performed 1 year(s) and 1 month(s) ago. Patient History: Menarche at age 10. First Full-Term at age 15. Postmenopausal. Cyst Aspiration on the Left side. Maternal cousin had breast cancer. Maternal aunt had breast cancer, age 56. Maternal aunt had breast cancer, age 40. Risk Values: Cristina 5 year model risk: 1.3%. NCI Lifetime model risk: 3.0%. Prior Study Comparison: 03/08/2019 Bilateral Screening Mammogram, [facility]. 09/19/2020 Bilateral Screening Mammogram, [facility]. 10/21/2021 Bilateral MG 3D screening mammo w/cad, [facility]. Tissue Density: The breast tissue is heterogeneously dense. This may lower the sensitivity of mammography. Findings: Analyzed By CAD. There is no suspicious group of microcalcifications or new suspicious mass in either breast. Overall Assessment: Benign, BI-RAD 2 Management: Screening Mammogram of both breasts in 1 year. . Patient should continue monthly self-breast exams. A clinical breast exam by your physician is recommended on an annual basis. This exam should not preclude additional follow-up of suspicious palpable abnormalities. Note on Cristina scores and lifetime risk: 1. A Cristina score greater than 3% is considered moderate risk. If this is the case, consider specialist referral to assess eligibility for a risk reducing agent. 2. If overall lifetime risk for the development of breast cancer is 20% or higher, the patient may qualify for future screening with alternating mammogram and breast MRI. Electronically signed and approved by: New Gonzalez M.D. Radiologis
== END | disposition home or self-care (01) ==
LOC: RADMAMWWP 14:42
PROVIDERS: ATTEND Internal Medicine
DX: Z12.31 Encounter for screening mammogram for malignant neoplasm of breast (principal); Z78.0 Asymptomatic menopausal state; Z80.3 Family history of malignant neoplasm of breast
CPT/HCPCS: 77063; 77067

== ENCOUNTER → 2022-12-23 | Day surgery (SDC) | payer MEDICARE ==
[2022-12-21 11:43] VITALS: BMI 23.4
[~2022-12-23] MED LIST changes: -DEXAMETHASONE SOD PHOSPHATE 4 MG/ML 1 ML VIAL IV ONE; -HYDROmorphone 0.5 MG/0.5 ML SYRINGE IVP PRN; -LACTATED RINGERS 1,000 ML IV SCH; +LIDOCAINE 1% (10MG/ML) FOR IV START INTRADERMA PRN; +ONDANSETRON 4 MG/2 ML VIAL ONE; +PROPOFOL 10 MG/ML 20 ML VIAL IV ONE
[2022-12-23] MEDS: LACTATED RINGERS 1,000 ML IV SCH ×2 (09:36→09:44)
[2022-12-23 09:38] LABS: Glucose,Whole Blood 132 mg/dL (70-110)
--- NOTE | 2022-12-23 10:01 | P.PCN ---
Date of Procedure: 12/23/22 Procedure(s) Performed: BRIEF HISTORY: Patient is a 72-year-old pleasant white female scheduled for an elective colonoscopy as a part of screening for colon cancer. PROCEDURE PERFORMED: Colonoscopy with biopsy. PREOPERATIVE DIAGNOSIS: Screening for colon cancer. IV sedation per Anesthesia. PROCEDURE: After informed consent was obtained, the patient, was brought into the endoscopy unit. IV sedation was administered by Anesthesia under continuous monitoring. Digital rectal examination was normal. Initially the Olympus CF-160 flexible video colonoscope was then inserted in the rectum, gradually advanced into the cecum without any difficulty. Careful examination was performed as the scope was gradually being withdrawn. Ileocecal valve and the appendiceal orifice were visualized and appeared normal. Prep was excellent. Mucosa of the cecum had 3-4 mm sessile polyp that was removed by cold biopsy. Rest of the, ascending colon, transverse colon, descending colon, sigmoid colon, and rectum appeared normal. Retroflexion was performed in the rectum and no lesions were seen. The patient tolerated the procedure well. IMPRESSION: 3-4 mm sessile cecal polyp status post cold biopsy Rest of the colon appeared normal RECOMMENDATIONS: Findings of this examination were discussed with the patient as well as a family. She was advised to follow with the biopsy results. If the biopsy reveals adenoma she can have a repeat colonoscopy in 5 years..
[2022-12-23 10:08] VITALS: RESP 16
[2022-12-23 10:26] VITALS: BP 133/79; PULSE 56
== END ==
LOC: ORWHC2ENDO 08:40
PROVIDERS: ATTEND Internal Medicine Gastroenterology
DX: Z12.11 Encounter for screening for malignant neoplasm of colon (principal); D12.0 Benign neoplasm of cecum; I10 Essential (primary) hypertension; E11.9 Type 2 diabetes mellitus without complications; E07.9 Disorder of thyroid, unspecified; C80.1 Malignant (primary) neoplasm, unspecified; Z88.2 Allergy status to sulfonamides; Z88.5 Allergy status to narcotic agent; Z88.8 Allergy status to other drugs, medicaments and biological substances; Z79.890 Hormone replacement therapy; Z79.83 Long term (current) use of bisphosphonates; Z79.82 Long term (current) use of aspirin; Z79.84 Long term (current) use of oral hypoglycemic drugs; Z79.899 Other long term (current) drug therapy
CPT/HCPCS: 88305; 45380; J2405; J2704

== ENCOUNTER → 2023-03-26 | Outpatient (CLI) | payer MEDICARE ==
[2023-03-26 14:01] LABS: African American GFR (CKD) >90 (>60 ml/min/1.73 sqM); Blood Urea Nitrogen 20 mg/dL (7-17); Non-African American GFR(CKD) >90 (>60 ml/min/1.73 sqM)
--- NOTE | 2023-03-26 15:32 | CT ---
EXAMINATION: CT ABDOMEN AND PELVIS WITH IV CONTRAST DATE OF EXAMINATION: 03/26/2023. COMPARISON: None available. INDICATION: Abdominal and flank pain with history of kidney and bladder cancer. PROCEDURE: Axial CT of the abdomen and pelvis was performed with contrast and sagittal and coronal reformatted images were performed. CT dose lowering techniques were used, to include: automated expos ure control, adjustment for patient size, and/or use of iterative reconstruction. 100 mL of Isovue-30 0 was given intravenously. FINDINGS: LOWER CHEST : The visualized lung bases are clear. There are no pleural or pericardial effusions. ABDOMEN: Liver and Biliary system: Normal. Adrenal glands: Normal. Kidneys and ureters: There are numerous nonobstructing bilateral renal stones ranging between 2 and 5 mm. There are no suspicious renal lesions clearly identified at this time. There is minimal prominen ce of the right renal collecting system and mild right-sided hydronephrosis with some dilation of the ureter down to the level of the distal portion of the ureter where there appears to be an area of na rrowing at this not well evaluated, however may represent a stricture. The line and malignant etiolog ies would be a consideration. There is no left-sided hydronephrosis. Spleen: Absent. Pancreas: Normal. Gallbladder: Normal. Lymph nodes, Peritoneum and mesentery: There is no mesenteric or retroperitoneal lymphadenopathy. Gastrointestinal tract: There are no dilated loops of bowel or free intraperitoneal air. There is no evidence of appendicitis. Aorta/IVC: No aortic aneurysm. IVC normal. Abdominal wall: Normal. PELVIS: Fluid: There is no free fluid in the pelvis. Lymph Nodes: There is no pelvic or inguinal lymphadenopathy.. Urinary bladder: Normal. BONES: There are no osseous destructive lesions.. ADDITIONAL SIGNIFICANT FINDINGS: Fibroid in the body of the uterus on the left measures 2 cm.. IMPRESSION: 1. Mild right-sided hydronephrosis and dilation of the right ureter down to the level of the pelvis w ith increased to be an area of narrowing as this could potentially represent an area of stricturing w ith benign and malignant etiologies a possibility. There does appear to be some mucosal enhancement o f the right ureter as well. 2. Numerous nonobstructing bilateral renal stones. 3. Small uterine fibroid. 4. No acute findings otherwise seen.
== END | disposition home or self-care (01) ==
LOC: RADCTMAIN 12:56
PROVIDERS: ATTEND Internal Medicine
DX: N13.2 Hydronephrosis with renal and ureteral calculous obstruction (principal); C64.9 Malignant neoplasm of unspecified kidney, except renal pelvis; D25.9 Leiomyoma of uterus, unspecified; Z85.51 Personal history of malignant neoplasm of bladder
CPT/HCPCS: 82565; 84520; 74177; 36415; Q9967

== ENCOUNTER → 2023-08-27 | Outpatient (CLI) | payer MEDICARE ==
[2023-08-27 14:59] LABS: Basophils # (A) 0.06 X 10*3/uL (0.00-0.10); Basophils % (A) 0.6 %; Eosinophils # (A) 0.21 X 10*3/uL (0.04-0.35); HCT 38.3 % (37.2-46.3); HGB 12.4 g/dL (12.0-15.0); Lymphocytes # (A) 2.95 X 10*3/uL (0.90-5.00); Lymphocytes % (A) 28.3 %; MCH 33.1 pg (27.0-32.0); MCHC 32.4 g/dL (32.0-37.0); MCV 102.1 FL (80.0-97.0); Mean Platelet Volume 11.7 FL (9.5-12.2); Monocytes # (A) 0.91 X 10*3/uL (0.20-1.00); Monocytes % (A) 8.7 %; NRBC Per 100 WBC 0 X 10*3/uL (0.00-0.01); Neutrophils # (A) 6.24 X 10*3/uL (1.80-7.70); Platelet Count 311 X 10*3/uL (140-440); RBC 3.75 X 10*6/uL (4.10-5.20); WBC 10.41 X 10*3/uL (4.50-10.00)
[2023-08-27 15:33] LABS: ALT 14 U/L (8-44); AST 20 U/L (13-35); Albumin 4.5 g/dL (3.8-4.9); Alkaline Phosphatase 70 U/L (41-126); Blood Urea Nitrogen 14.6 mg/dL (9.0-27.0); Calcium 9.6 mg/dL (8.7-10.3); Carbon Dioxide 23.9 mmol/L (21.6-31.8); Chloride 105 mmol/L (96-109); Ferritin 71.1 ng/mL (10.0-291.0); Globulin 1.8 g/dL (1.6-3.3); Glucose 125 mg/dL (70-110); Iron 102 UG/DL (50-170); LDL Cholesterol,Calculated 74.2 mg/dL (0.0-131.0); Magnesium 2.1 mg/dL (1.5-2.4); Potassium 4.8 mmol/L (3.5-5.5); Sodium 140 mmol/L (135-145); T4, Free (Free Thyroxine) 1.12 ng/dL (0.80-1.80); Total Bilirubin 0.7 mg/dL (0.3-1.2); Total Protein 6.3 g/dL (6.2-8.2)
[2023-08-27 15:40] LABS: % Iron Saturation 31.29 (12.00-45.00); Total Iron Binding Capacity 326 UG/DL (228-460)
== END | disposition home or self-care (01) ==
LOC: LABWHC1 10:08
PROVIDERS: ATTEND Internal Medicine
DX: I10 Essential (primary) hypertension (principal); E11.9 Type 2 diabetes mellitus without complications; E31.21 Multiple endocrine neoplasia [MEN] type I; D64.9 Anemia, unspecified
CPT/HCPCS: 36415; 80053; 80061; 82607; 82728; 82746; 83036; 83540; 83550; 83735; 83970; 84146; 84439; 84443; 85025; 86803

== ENCOUNTER → 2023-09-09 | Outpatient (CLI) | payer MEDICARE ==
[2023-09-09 12:13] LABS: African American GFR (CKD) >90 (>60 ml/min/1.73 sqM); Blood Urea Nitrogen 18 mg/dL (7-17); Non-African American GFR(CKD) >90 (>60 ml/min/1.73 sqM)
--- NOTE | 2023-09-09 12:49 | CT ---
EXAMINATION TYPE: CT abdomen pelvis wo/w con DATE OF EXAM: 09/09/2023 COMPARISON: 03/26/2023 HISTORY: F/U RIGHT RENAL AND BLADDER CA CT DLP: 850.9 mGycm Automated exposure control for dose reduction was used. TECHNIQUE: Helical acquisition of images was performed from the lung bases through the pelvis. CONTRAST: Performed with Oral Contrast and with IV Contrast, patient injected with 100 mL of Isovue 300. FINDINGS: The lung bases are clear. There is surgical absence of the gallbladder. There is no biliary ductal dilatation. There is no focal mass or organomegaly involving the liver, pancreas, spleen or adrenal glands. There are multiple innumerable bilateral renal calcifications the largest of which is in the right ki dney and measures about 5.8 mm. There is no hydronephrosis or solid renal mass. There is a calcification in the right mid abdomen which measures approximately 4.3 mm which appears t o be immediately adjacent to the mid right ureter and not within it. The caliber the abdominal aorta is normal is no retroperitoneal adenopathy or hemorrhage. The bowel loops are normal in caliber and there is no evidence of dilatation or obstruction. No infla mmatory changes are identified in the bowel wall or mesentery. There is no free intraperitoneal air or fluid. No pelvic mass, free fluid, abscess or adenopathy. The osseous structures and soft tissues are intact. IMPRESSION: 1. Multiple innumerable nonobstructing bilateral renal calcifications as described above. 2. Calcification in the right mid abdomen which appears to be immediately adjacent to the right urete r. 3. No solid renal mass or hydronephrosis. 4. Cholecystectomy
[2023-09-09 19:29] LABS: BUN/Creat Ratio 28.17 Ratio (12.00-20.00); Blood Urea Nitrogen 16.9 mg/dL (9.0-27.0); Carbon Dioxide 23.1 mmol/L (21.6-31.8); Chloride 101 mmol/L (96-109); Glucose 114 mg/dL (70-110); Potassium 4.7 mmol/L (3.5-5.5); Sodium 135 mmol/L (135-145)
== END | disposition home or self-care (01) ==
LOC: RADCTMAIN 10:08
PROVIDERS: ATTEND Urology
DX: N28.89 Other specified disorders of kidney and ureter (principal); C66.1 Malignant neoplasm of right ureter; C67.9 Malignant neoplasm of bladder, unspecified; Z90.49 Acquired absence of other specified parts of digestive tract
CPT/HCPCS: 80048; 82565; 84520; 74178; 36415; Q9967

== ENCOUNTER → 2023-09-12 | Outpatient (CLI) | payer MEDICARE ==
--- NOTE | 2023-09-12 19:21 | PE ---
EXAMINATION TYPE: PET CT fusion skull to thigh DATE OF EXAM: 09/12/2023 CLINICAL INDICATION:Female, 73 years old with history of C64.9 MALIGNANT NEOPLASM OF UNSP KIDNEY, EXC EPT RE; TECHNIQUE: Following the intravenous administration of 11.1 mCi of F-18 FDG, whole body images are performed from the skull base to the midthigh. Images are reviewed on the computer in the coronal, a xial, and sagittal planes. Reconstructed rotating images are created on independent workstation and reviewed on the computer. A non-contrast CT is performed in conjunction with the PET scan. Glucose level 165 mg/dL CT DLP: 217 mGycm, Automated exposure control for dose reduction was used. COMPARISON: CT 09/09/2023, PET/CT None, FINDINGS: Mediastinal SUV mean is 2.4. Hepatic parenchyma SUV mean is 3.4. SKULL BASE AND NECK: No suspicious radiotracer activity. CHEST, MEDIASTINUM, AND HILAR REGION: * Right upper lung mixed groundglass and solid nodule Max SUV 2.2 in totality 30 x 23 mm solid compo nent measuring 18 x 13 mm. ABDOMEN AND PELVIS: * No suspicious radiotracer activity. * Renal mass is not definitively visualized bilaterally. Multiple nonobstructing renal calculi. MUSCULOSKELETAL STRUCTURES: No suspicious radiotracer activity. OTHER CT: Gallbladder surgically absent. Bilateral nonobstructing renal calculi. Scattered colonic di verticula. Fat-containing umbilical hernia. Coronary artery atherosclerosis. IMPRESSION: 1. Right upper lung solid and groundglass nodule with FDG levels near background levels. Given patie nt's history of malignancy surveillance is recommended with short-term follow-up CT in 1-2 months. If finding persists consider bronchoscopy with tissue sampling. 2. No evidence for renal mass on this noncontrast CT.
== END | disposition home or self-care (01) ==
LOC: RADPETMAIN 10:34
PROVIDERS: ATTEND Internal Medicine
DX: C64.9 Malignant neoplasm of unspecified kidney, except renal pelvis (principal); R91.1 Solitary pulmonary nodule
CPT/HCPCS: 78815; A9552

== ENCOUNTER → 2023-10-22 | Outpatient (CLI) | payer MEDICARE ==
[2023-10-22 20:23] LABS: Basophils # (A) 0.07 X 10*3/uL (0.00-0.10); Basophils % (A) 0.6 %; Eosinophils # (A) 0.13 X 10*3/uL (0.04-0.35); Eosinophils % (A) 1.2 %; HCT 37.7 % (37.2-46.3); HGB 12.3 g/dL (12.0-15.0); Lymphocytes # (A) 2.86 X 10*3/uL (0.90-5.00); Lymphocytes % (A) 26.1 %; MCH 32.6 pg (27.0-32.0); MCHC 32.6 g/dL (32.0-37.0); Mean Platelet Volume 11.3 FL (9.5-12.2); Monocytes % (A) 8.2 %; NRBC Per 100 WBC 0 X 10*3/uL (0.00-0.01); Neutrophils # (A) 6.95 X 10*3/uL (1.80-7.70); Neutrophils % (A) 63.5 %; Platelet Count 339 X 10*3/uL (140-440); RBC 3.77 X 10*6/uL (4.10-5.20); RDW 13.8 % (11.5-14.5); WBC 10.95 X 10*3/uL (4.50-10.00)
[2023-10-22 20:48] LABS: BUN/Creat Ratio 20.86 Ratio (12.00-20.00); Blood Urea Nitrogen 14.6 mg/dL (9.0-27.0); Carbon Dioxide 21.9 mmol/L (21.6-31.8); Chloride 102 mmol/L (96-109); Glucose 123 mg/dL (70-110); Potassium 4.6 mmol/L (3.5-5.5); Sodium 136 mmol/L (135-145)
== END | disposition home or self-care (01) ==
LOC: LABWHC1 13:17
PROVIDERS: ATTEND Urology
DX: C65.1 Malignant neoplasm of right renal pelvis (principal)
CPT/HCPCS: 36415; 80048; 85025

== ENCOUNTER → 2023-10-22 | Outpatient (CLI) | payer MEDICARE ==
--- NOTE | 2023-10-22 15:25 | CT ---
EXAMINATION TYPE: CT chest wo con DATE OF EXAM: 10/22/2023 COMPARISON: No prior chest CTs available for review at this institution. Previous PET CT 09/12/2023 is available. HISTORY: Abnormality of rt side lung found on prior PET scan. CT DLP: [address] of the chest was performed with lung and mediastinal window settings submitted. The la ck of contrast limits evaluation of the vascular, mediastinal and parenchymal structures including th e upper abdomen. LUNGS: Groundglass nodule with solid component has enlarged in the interval and measures 3.7 x 2.1 cm versus 3.0 x 2.2 cm. Solid component currently measures 2.0 cm x 1.1 cm versus 1.8 x 1.3 cm. Maligna ncy is not excluded. Consider follow-up PET/CT. The lungs are otherwise clear. MEDIASTINUM/KUSUM: Thoracic aorta is of normal caliber with limited evaluation given lack of contrast . The heart is not enlarged. No evidence for mediastinal mass. No lymph nodes greater than 1cm. UPPER ABDOMEN: No significant abnormality is seen. OTHER: No significant other abnormality. IMPRESSION: 1. Groundglass nodule with solid component has enlarged in the interval and measures 3.7 x 2.1 cm v ersus 3.0 x 2.2 cm. Solid component currently measures 2.0 cm x 1.1 cm versus 1.8 x 1.3 cm. Malignanc y is not excluded. Consider follow-up PET/CT.
== END | disposition home or self-care (01) ==
LOC: RADCTMAIN 13:56
PROVIDERS: ATTEND Internal Medicine
DX: R91.1 Solitary pulmonary nodule (principal); R91.8 Other nonspecific abnormal finding of lung field
CPT/HCPCS: 71250

== ENCOUNTER → 2023-11-18 | Outpatient (CLI) | payer MEDICARE ==
--- NOTE | 2023-12-16 09:44 | PE ---
Patient: Leyla Samson Ordering Physician: Unknown, Unknown ID: [id number] Phone, Pager: Phone: N/A P ager: N/A : 1950 Age/Gender: 73Y, F Primary Location: N/A Procedure: PET CT fusion skull to th igh Study Date: 11/18/2023 11:25:00 AM EXAMINATION TYPE: PET CT fusion skull to thigh DATE OF EXAM: 11/26/2023 CLINICAL INDICATION: Pulmonary nodule TECHNIQUE: Following the intravenous administration of 11.33 mCi of F-18 FDG, whole body images are performed from the skull base to the midthigh. Images are reviewed on the computer in the coronal, axial, and sagittal planes. Reconstructed rotating images are created on independent workstation and reviewed on the computer. A non-contrast CT is performed in conjunction with the PET scan. Glucose level 134 mg/dL CT DLP: 353 mGycm, Automated exposure control for dose reduction was used. COMPARISON: CT None, PET/CT 09/12/2023, MRI: None FINDINGS: Mediastinal SUV mean is 2.7 Hepatic parenchyma SUV mean is 3.2. SKULL BASE AND NECK: No suspicious radiotracer activity. CHEST, MEDIASTINUM, AND HILAR REGION: *Similar right upper lung mixed groundglass and solid nodule Max SUV 2.4, previously 2.2 in totality 30 x 23 mm solid component measuring 18 x 13 mm. ABDOMEN AND PELVIS: * No suspicious radiotracer activity. MUSCULOSKELETAL STRUCTURES: No suspicious radiotracer activity. OTHER CT: Gallbladder surgically absent. Bilateral nonobstructing renal calculi. Scattered colonic di verticula. Fat-containing umbilical hernia. Coronary artery atherosclerosis. IMPRESSION: 1. Right upper lung solid and groundglass nodule with FDG levels near background levels. Given patien t's history of malignancy surveillance is recommended with short-term follow-up CT in 6 months 2. No evidence for renal mass on this noncontrast CT.
== END | disposition home or self-care (01) ==
LOC: RADPETMAIN 10:14
PROVIDERS: ATTEND Internal Medicine
DX: R91.1 Solitary pulmonary nodule (principal)
CPT/HCPCS: 78815; A9552

== ENCOUNTER 2024-01-20 10:54 | Day surgery (SDC) | payer MEDICARE ==
[2024-01-20] MEDS ORDERED: LACTATED RINGERS 1,000 ML IV SCH (11:03)
--- NOTE | 2024-01-20 11:37 | CT ---
EXAMINATION TYPE: CT Chest [facility] protocol DATE OF EXAM: 01/20/2024 COMPARISON: 10/22/2023 HISTORY: Bronchoscopy guidance Automated Exposure Control for Dose Reduction was Utilized. TECHNIQUE: CT scan of the thorax is performed without IV contrast. FINDINGS: There is an ill-defined partially groundglass and partially solid mass in the right upper lobe measur ing approximately 3.2 x 2.3 cm. It is highly suspicious for neoplasm. The left lung is clear. There is no pleural effusion or pneumothorax. There is a mildly enlarged 11 mm precarinal lymph node. Limited scanning through the upper abdomen reveals no gross abnormality. No focal osseous lesions are seen. IMPRESSION: 1. Right upper lobe lung mass as described above highly suspicious for neoplasm. 2. Mildly enlarged 11 mm precarinal lymph node. [facility], Workstation: CHRISTINA 01/20/2024 11:35 AM
[2024-01-20 12:12] LABS: Glucose,Whole Blood 124 mg/dL (70-110)
[2024-01-20] MEDS: LACTATED RINGERS 1,000 ML IV SCH (12:16)
[2024-01-20] MEDS: ONDANSETRON 4 MG/2 ML VIAL IVP STA (12:19)
[2024-01-20] MEDS: DEXAMETHASONE SOD PHOSPHATE 4 MG/ML 1 ML VIAL IVP STA (12:19)
[2024-01-20] MEDS: IV FLUID CONTINUATION 1,000 ML IV ONE (12:21)
[2024-01-20] MEDS ORDERED: LIDOCAINE 1% INJ 10MG/ML (20 ML MDV) ONE (13:04)
[2024-01-20] MEDS ORDERED: diphenhydrAMINE 50 MG/ML 1 ML VIAL ONE (13:04)
[2024-01-20] MEDS ORDERED: MIDAZOLAM 2 MG/2 ML VIAL ONE (13:04)
[2024-01-20] MEDS ORDERED: ROCURONIUM 10 MG/ML (5 ML VIAL) IV ONE (13:04)
[2024-01-20] MEDS ORDERED: ONDANSETRON 4 MG/2 ML VIAL ONE (13:04)
[2024-01-20] MEDS ORDERED: PHENYLEPHRINE-0.9% NACL SYG 1,000 MCG/10 ML SYRINGE ONE (13:04)
[2024-01-20] MEDS ORDERED: SUCCINYLCHOLINE CHLORIDE 200 MG/10 ML VIAL IV ONE (13:04)
[2024-01-20] MEDS ORDERED: GLYCOPYRROLATE 0.2 MG/ML 2 ML VIAL ONE (13:04)
[2024-01-20] MEDS ORDERED: PROPOFOL 10 MG/ML 20 ML VIAL IV ONE (13:04)
[2024-01-20] MEDS ORDERED: NEOSTIGMINE 1 MG/ML 10 ML VIAL ONE (13:04)
[2024-01-20] MEDS ORDERED: DEXAMETHASONE SOD PHOSPHATE 4 MG/ML 1 ML VIAL ONE (13:04)
[2024-01-20] MEDS ORDERED: fentaNYL (PF) 50 MCG/ML 2 ML AMP ONE (13:04)
--- NOTE | 2024-01-20 14:18 | P.PCN ---
Date of Procedure: 01/20/24 Operative Findings: Preoperative Diagnosis: Right upper lobe pulmonary nodule Postoperative Diagnosis: Right upper lobe pulmonary nodule Procedure(s) Performed: Flexible bronchoscopy Robotic-assisted bronchoscopy and radial ultrasound evaluation of the pulmonary nodule Robotic-assisted transbronchial needle aspirate, transbronchial biopsies, transbronchial brushing of the right upper lobe nodule in addition to a bronchi oloalveolar lavage Anesthesia: ELIZABETH Surgeon: Suad Nicolas Estimated Blood Loss (ml): 0 Pathology: other Condition: stable Disposition: same day Operative Findings: A physical exam was performed. Informed consent was obtained from the patient after explaining all the risks (pneumothorax, life threatening bleeding, infection and adverse effects due to medications), benefits and alternatives to the procedure which the patient appeared to understand and so stated. The patient was connected to the monitoring devices. General anesthesia was induced and the patient was intubated by anesthesia. A final timeout was performed and the procedure confirmed by the attending bronchoscopist. The bronchoscope was inserted and the airway examined. Airway examination was essentially within normal limits. The flexible bronchoscope was removed and the robotic bronchoscope was inserted. Registration was completed. I next guided the robotic bronchoscope using the navigation system into the right upper lobe apical segment. Once in proper position, the bronchoscope was frozen. The radial EBUS probe was placed through the bronchoscope and confirmed abnormal u/s images vs normal lung. A needle was placed through the working channel and under fluoroscopic guidance, we sampled the area twice. We then used a cloud biopsy pattern with ultrasound confirmation for 1 additional passes with the needle. U/S evaluation was then used to reconfirm location. Forceps were next introduced through working channel and extended the appropriate distance and 3 transbronchial biopsies were performed using fluoroscopic guidance. The u/s probe was then reinserted to confirm location. When confirmed this process was repeated for a total of 8-10 transbronchial biopsies. Following that, transbronchial brushing of the right upper lobe pulmonary nodule was done under flouroscopic guidance. 40ml of saline was then instilled into the area of the lesion. A total of 10 cc of bloody aspirate was obtained. The robotic bronchoscope was removed and the airway inspected with a flexible bronchoscope and 10 ml of effluent from the BAL was collected. The aspirate was bloody and ultimately declotted and based on th at, the sample was discarded. Flex. bronchoscope was inserted and regular suctioning was done. At the completion of the procedure, no residual secretions or bloody material within the airway. The bronchoscope was removed. The endobronchial ultrasound was inserted. RECOMMENDATIONS: Await pathology and cytology results The referring physician will be alerted to the results when available. The patient was advised to follow up with the referring physician with the biopsy results Patient will be called with results.
[2024-01-20 14:51] VITALS: TEMP 98
--- NOTE | 2024-01-20 15:18 | FL ---
EXAMINATION TYPE: FL bronchoscopy DATE OF EXAM: 01/20/2024 2:15 PM COMPARISON: Pre Operative Images if available both CT/MRI or plain film CLINICAL INDICATION: Female, 73 years old with history of PULMONARY NODULE; TECHNIQUE: FL bronchoscopy, multiple fluoroscopic images provided for procedure. Total fluoroscopy time: 1 36 13 Total submitted images to PACS: 6 DAP: 0.22974 mGym2 Gycm2 uGym2 cGycm2 or equivalent. FINDINGS: ION bronchoscopy images demonstrate bronchoscope terminating in the lung. No immediate complications identified, no pneumothorax identified. IMPRESSION: 1. No evidence for intraoperative complication. 2. Please see the operative/procedural note for further details. [facility], , 01/20/2024 3:16 PM
--- NOTE | 2024-01-20 15:32 | XR ---
EXAMINATION TYPE: XR chest 1V DATE OF EXAM: 01/20/2024 3:25 PM CLINICAL INDICATION: Female, 73 years old with history of post bx; [facility] COMPARISON: 01/20/2024 TECHNIQUE: XR chest 1V Frontal view of the chest. FINDINGS: Lungs/Pleura: Small right pneumothorax. There is no evidence of pleural effusion, focal consolidation , or left pneumothorax. Pulmonary vascularity: Unremarkable. Heart/mediastinum: Cardiomediastinal silhouette is unremarkable. Musculoskeletal: No acute osseous pathology. IMPRESSION: Right small pneumothorax [facility], , 01/20/2024 3:30 PM
[2024-01-20 15:35] LABS: Glucose,Whole Blood 114 mg/dL (70-110)
[2024-01-20 17:06] VITALS: BP 139/84; PULSE 75; RESP 18
== END 2024-01-20 17:00 | disposition home or self-care (01) ==
LOC: ORWHC2ENDO 10:54
PROVIDERS: ATTEND Internal Medicine Critical Care Medicine
CPT/HCPCS: 31623; 31624; 31628; 31629; 71045; 71250; 88108; 88305; 88341; 88342

== ENCOUNTER → 2024-02-10 | Outpatient (CLI) | payer MEDICARE ==
[2024-02-10 14:30] LABS: INR 0.9 (<1.2); Prothrombin Time 10.3 sec (10.0-12.5)
[2024-02-10 14:41] LABS: Partial Thromboplastin Time 21.7 sec (22.0-30.0)
[2024-02-10 19:14] LABS: Appearance,Urine Turbid (Clear); Bilirubin,Urine Negative (Negative); Blood,Urine Negative (Negative); Color,Urine Yellow (Yellow); Ketones,Urine Negative (Negative); Nitrite,Urine Negative (Negative); Specific Gravity,Urine 1.022 (1.001-1.030); Urobilinogen,Urine 0.2 E.U./DL
[2024-02-10 19:22] LABS: Bacteria,Urine Trace (None Seen)
[2024-02-10 19:27] LABS: Basophils # (A) 0.08 X 10*3/uL (0.00-0.10); Basophils % (A) 1.1 %; Eosinophils # (A) 0.14 X 10*3/uL (0.04-0.35); HCT 39.6 % (37.2-46.3); HGB 12.6 g/dL (12.0-15.0); Lymphocytes # (A) 2.55 X 10*3/uL (0.90-5.00); MCH 32.9 pg (27.0-32.0); MCHC 31.8 g/dL (32.0-37.0); MCV 103.4 FL (80.0-97.0); Mean Platelet Volume 11.8 FL (9.5-12.2); Monocytes # (A) 0.71 X 10*3/uL (0.20-1.00); NRBC Per 100 WBC 0 X 10*3/uL (0.00-0.01); Neutrophils # (A) 3.58 X 10*3/uL (1.80-7.70); Neutrophils % (A) 50.6 %; Platelet Count 352 X 10*3/uL (140-440); RBC 3.83 X 10*6/uL (4.10-5.20); RDW 14.5 % (11.5-14.5); WBC 7.08 X 10*3/uL (4.50-10.00)
[2024-02-10 20:49] LABS: Blood Urea Nitrogen 15.1 mg/dL (9.0-27.0); Carbon Dioxide 22.9 mmol/L (21.6-31.8); Chloride 106 mmol/L (96-109); Glucose 112 mg/dL (70-110); Potassium 4.4 mmol/L (3.5-5.5); Sodium 139 mmol/L (135-145)
== END | disposition home or self-care (01) ==
LOC: LABPAT 12:53
PROVIDERS: ATTEND Thoracic Surgery (Cardiothoracic Vascular Surgery)
DX: Z01.812 Encounter for preprocedural laboratory examination (principal); C34.11 Malignant neoplasm of upper lobe, right bronchus or lung; E86.0 Dehydration; R58 Hemorrhage, not elsewhere classified; Z79.899 Other long term (current) drug therapy
CPT/HCPCS: 36415; 80051; 81001; 82565; 82947; 84520; 85025; 85610; 85730; 86850; 86900; 86901; 87086

== ENCOUNTER 2024-02-14 05:46 | Inpatient (IN) | payer MEDICARE ==
[2024-02-10 16:01] VITALS: BMI 24.3
[2024-02-14 06:54] LABS: Glucose,Whole Blood 133 mg/dL (70-110)
[2024-02-14] MEDS: MIDAZOLAM 2 MG/2 ML VIAL IVP ONE (07:09)
[2024-02-14] MEDS: DEXAMETHASONE SOD PHOSPHATE 4 MG/ML 1 ML VIAL IV ONE (07:23)
[2024-02-14] MEDS: LACTATED RINGERS 1,000 ML IV SCH (07:23)
[2024-02-14] MEDS: ONDANSETRON 4 MG/2 ML VIAL IVP ONE (07:23)
[2024-02-14] MEDS: IV FLUID CONTINUATION 1,000 ML IV ONE ×2 (07:30→07:31)
[2024-02-14] MEDS: BUPIVACAINE (PF) 0.25% 30 ML VIAL SQ ONE ×2 (09:13→11:08)
--- NOTE | 2024-02-14 11:31 | P.OP ---
Date of Procedure: 02/14/24 Preoperative Diagnosis: Pulmonary adenocarcinoma right upper lobe lung Postoperative Diagnosis: Same Procedure(s) Performed: Robotic assisted thoracoscopic right upper lobectomy with mediastinal lymph node dissection Anesthesia: ELIZABETH Surgeon: Clovis King Tig Welder #1: Aniceto Han Estimated Blood Loss (ml): 20 IV fluids (ml): 1,000 Urine output (ml): 300 Pathology: other (Right upper lobe; lymph node stations R4, R8, level 7, R11, R12) Condition: stable Disposition: PACU Indications for Procedure: 73-year-old female with newly diagnosed adenocarcinoma right upper lobe. CT and PET criteria were negative for metastasis. EBUS was negative for enlarged lymph nodes. No lymph nodes were biopsied with EBUS. The lung mass was biopsied and proven positive adenocarcinoma. Pulmonary function testing was adequate for lobectomy. Operative Findings: Near complete greater fissure, partially complete lesser fissure. Tumor in right upper lobe of lung distant from hilar bronchus. Lymph nodes small and anthracotic. Surgical planes difficult. Description of Procedure: The patient was brought to the operating room and placed supine on the operating table. General anesthesia was induced. Double-lumen endotracheal tube was placed and positioned appropriately with bronchoscopy. No endobronchial lesions were noted. Tube was secured and the patient turned in the left lateral decubitus position. She was appropriately positioned for robotic lobectomy. The right chest was sterilely prepped and draped. Initial incision was made over the ninth interspace in the midaxillary line. Single lung ventilation was initiated and an 8 mm port was placed into the pleural space. After confirming presence in the pleural space, CO2 insufflation was begun. 12 mm port was placed posterior to this in the 10th interspace and anterior to this in the eighth interspace. Working port was placed between the 2 most anterior ports at the level of the diaphragm. A second 8 mm port was placed superiorly and posteriorly at the level of the superior segment of the right lower lobe. The robot was docked. We began by taking down adhesions in the fissure posteriorly. There was a small bridging vein which was ligated and divided with the vessel sealer. The posterior segmental branch of the pulmonary artery was identified ligated and divided with a robotic vascular stapler. Dissection was then carried into the hilum posteriorly through the fissure but dissection was difficult due to bleeding from the hilar lymph nodes and poor tissue planes. Attention was now directed to the inferior pulmonary ligament. This was taken down with electrocautery. Dissection was carried posteriorly and the pleura was opened over the inferior pulmonary vein and up to the level of the mainstem bronchus. Are 8 and level 7 lymph nodes were dissected out. Dissection was carried anteriorly onto the bronchus intermedius. Fissure was completed posteriorly using electrocautery and the vessel sealer 4 of some bridging veins. Attempts to encircle the bronchus at this point were unsuccessful due to again some enlarged hilar lymph nodes and poor tissue plane and bleeding. Dissection was now brought anteriorly. Branches of the superior pulmonary vein draining the upper lobe were dissected out and ligated and divided with a robotic vascular stapler, sparing the middle lobe vein. Dissection was carried onto the pulmonary artery branches. It was 1 small and 2 larger pulmonary artery branches leading to the upper lobe and these were taken with 3 individual firings of a robotic vascular stapler. She still struggled somewhat to get around the bronchus and it was decided to complete the fissure. Multiple firings of a robotic 45 blue stapler were used to complete the lesser fissure. We were now easily able to encircle the right upper lobe bronchus, ligating and dividing it with a robotic green stapler. The lobectomy specimen was now placed in an Endo Catch bag and retracted inferiorly. R10 lymph nodes and R4 lymph nodes were dissected out and sampled and sent for permanent section. The robot was undocked. The working port incision was enlarged slightly in the lobectomy specimen easily removed within the Endo Catch bag. It was dissected on the back table and R12 lymph nodes were sampled and sent for permanent section. All lymph nodes in the lobectomy specimen were sent for permanent section. Lung was inflated under water and no air leaks were noted. The water was suctioned out and the chest cavity was noted to be hemostatic. A 28 Chinese chest tube was placed superiorly and posteriorly through an anterior stab incision and secured with 0 Ethibond suture. The lung was again inflated under thoracoscopic visualization. Scope was removed and the incisions were closed with layers of Vicryl suture. Rib blocks were performed posteriorly at the level of the incisions. Skin glue and dry sterile dressings were applied. The patient was turned supine extubated and transferred to recovery in stable condition.
[2024-02-14] MEDS: HYDROmorphone 0.5 MG/0.5 ML SYRINGE IVP PRN (11:43)
--- NOTE | 2024-02-14 12:02 | XR ---
EXAMINATION TYPE: XR chest 1V portable DATE OF EXAM: 02/14/2024 11:49 AM COMPARISON: None. CLINICAL INDICATION: Female, 73 years old with history of Status post right upper lobectomy, TECHNIQUE: XR chest 1V portable view(s) obtained. FINDINGS: The heart size is normal. The pulmonary vasculature is normal. The lungs are clear. No pneumothorax is evident. Right-sided chest tube is present. Subcutaneous air is lateral chest wall . IMPRESSION: 1. No pneumothorax evident post right upper lobectomy. Right-sided chest tube in position. [facility], , 02/14/2024 12:00 PM
[2024-02-14] MEDS ORDERED: DEXTROSE 50% SYRINGE 50 ML IVP PRN ×2 (12:35)
[2024-02-14 14:54] LABS: Glucose,Whole Blood 193 mg/dL (70-110)
[2024-02-14] MEDS: INSULIN ASPART (NovoLOG) 100 UNIT/ML VIAL SQ ONE (15:15)
[2024-02-14] MEDS ORDERED: IPRATROPIUM-ALBUTEROL 3 ML NEB INHALATION PRN (15:34)
--- NOTE | 2024-02-14 15:34 | P.CNPUL ---
History of Present Illness Consult date: 02/14/24 Requesting physician: Clovis King Reason for consult: other (Status post robotic assisted thoracoscopic right upper lobectomy and mediastinal lymph node dissection) Chief complaint: Recently diagnosed lung cancer History of present illness: This is a 73-year-old female, well-known to my service, I saw this patient recently for abnormal CT of the chest. Patient was seen in the office on co nsultationfor an 18 x 13 mm nodule in the right upper lobe. Patient underwent robotic bronchoscopy and she was found to have adenocarcinoma involving the right upper lobe with negative EBUS findings. Patient was referred to Dr. King and today the patient underwent robotic assisted thoracoscopic right upper lobectomy with mediastinal lymph node dissection, postoperatively I was asked to see the patient in consultation. Patient is doing well, she was seen actually in the recovery room, complaining of some pain and discomfort, chest x- ray showed no evidence of pneumothorax, right-sided chest tube in proper position, and no immediate postoperative complications. Patient is receiving pain medication for discomfort. Looking at this patient's PFT, she had a PFT recently in my office, her FEV1 is 97% FEV1/FVC is 87%. Minimal air leak noted in the Pleur-evac today. Patient will be sent to the floor in the next half hour Review of Systems REVIEW OF SYSTEMS: CONSTITUTIONAL: Negative. EYES: Negative. ENT: Negative. CARDIAC: Negative. PULMONARY: As above. GI: Negative. GENITOURINARY: Negative. MUSCULOSKELETAL: Negative. SKIN: Negative. NEUROPSYCH: Negative. ENDOCRINE: Negative. HEMATOLOGIC: Negative. Past Medical History Past Medical History: Cancer, Diabetes Mellitus, Eye Disorder, GERD/Reflux, Hypertension, Osteoarthritis (OA), Thyroid Disorder Additional Past Medical History / Comment(s): Current right lung cancer. MEN(Multiple Endocrine Neoplasia) Syndrome Type 1, Diabetes Mellitus Type 2, hypertensive cardiovascular disease, hypothyroidism, Fuchs corneal dystrophy, nephrolithiasis, left inferior parathyroid adenoma, hx bladder cancer - "12 tumors from right ureter into right kidney treated with jelmyto chemotherapy". History of Any Multi-Drug Resistant Organisms: None Reported Past Surgical History: Adenoidectomy, Appendectomy, Cholecystectomy, Orthopedic Surgery, Tonsillectomy Additional Past Surgical History / Comment(s): Lithotripsy, trans obturator mid urethral sling, pancreatic stent, distal pancreatectomy, splenectomy, wrist open reduction and internal fixation, right corneal transplant, right wrist titanium jesse, uteroscope, bronchoscopy/right lung biopsy. Past Anesthesia/Blood Transfusion Reactions: Motion Sickness, Postoperative Nausea & Vomiting (PONV) Additional Past Anesthesia/Blood Transfusion Reaction / Comment(s): Vertigo. Daughter PONV. Smoking Status: Former smoker, Light tobacco smoker - Past Family History Mother Family Medical History: Coronary Artery Disease (CAD), Diabetes Mellitus Father Family Medical History: No Reported History Sister(s) Family Medical History: Cancer, Diabetes Mellitus Brother(s) Family Medical History: Cancer Daughter(s) Family Medical History: Pulmonary Embolus Son(s) Family Medical History: Deep Vein Thrombosis (DVT), Neurologic Disorder Additional Family Medical History / Comment(s): Traumatic brain injury r/t MVA. Medications and Allergies Home Medications Medication Instructions Recorded Confirmed Type Levothyroxine Sodium [Synthroid] 75 mcg PO MOTUWETH 12/12/13 02/10/24 History lisinopriL [Lisinopril] 5 mg PO 1400 12/12/13 02/10/24 History metFORMIN HCL [Glucophage] 500 mg PO BID 12/12/13 02/10/24 History Levothyroxine Sodium [Tirosint] 50 mcg PO SUFRSA 01/06/18 02/10/24 History Aspirin [Adult Low Dose Aspirin EC] 81 mg PO DAILY 02/04/21 02/10/24 History Docusate [Colace] 100 mg PO DAILY PRN 02/04/21 02/10/24 History Ergocalciferol [Vitamin D2 (1250 1,250 mcg PO WATTERS 02/04/21 02/10/24 History Mcg = [id number] Iu)] hydrOXYzine pamoate [Vistaril] 25 mg PO QID PRN #10 cap 09/25/21 02/10/24 Rx Meclizine [Antivert] 25 mg PO DAILY PRN 01/17/24 02/10/24 History traMADol HCL 50 mg PO Q6H PRN 02/10/24 02/10/24 History Allergies Allergy/AdvReac Type Severity Reaction Status Date / Time Sulfa (Sulfonamide Allergy Rash/Hives Verified 02/14/24 06:26 Antibiotics) codeine AdvReac Nausea & Verified 02/14/24 06:26 Vomiting phenazopyridine AdvReac Abdominal Verified 02/14/24 06:26 Pain Physical Exam Vitals: Vital Signs Temp Pulse Resp BP BP BP Pulse Ox 02/14/24 15:00 70 16 138/72 95 02/14/24 14:20 65 16 140/69 94 L 02/14/24 13:50 65 16 156/77 93 L 02/14/24 13:20 63 16 159/76 94 L 02/14/24 12:50 59 L 16 153/75 166/78 100 02/14/24 12:35 62 16 152/75 162/78 100 02/14/24 12:20 63 16 159/100 180/83 100 02/14/24 12:04 64 16 176/87 157/84 100 02/14/24 11:49 66 16 169/80 155/72 100 02/14/24 11:34 96.8 F L 70 18 150/79 96 02/14/24 07:54 51 L 18 146/82 100 02/14/24 07:10 58 L 16 145/83 100 02/14/24 06:38 97.5 F L 62 18 173/75 99 Intake and Output 02/14/24 02/14/24 02/14/24 06:59 14:59 22:59 Intake Total 2074 Output Total 1565 Balance 510 Intake: IV 2074 Output: Urine 1550 Estimated Blood Loss 15 Other: Weight 59.1 kg General: Revealed 73-year-old female in no distress, on room air Skin: Skin is warm and dry and no rashes or lesions are noted. Eye: Pupils are equal, round and reactive to light, extra-ocular movements are intact; there is normal conjunctiva bilaterally. Ears, nose, mouth and throat: There are moist mucous membranes and no oral lesions. Neck: The neck is supple, there is no tenderness or JVD. Cardiovascular: There is a regular rate and rhythm. No murmur, rub or gallop is appreciated. Respiratory: Symmetrical chest expansion no crackles rhonchi or wheezes right-sided chest tube is noted Gastrointestinal: Soft, non-distended, non-tender abdomen without masses or organomegaly noted. There is no rebound or guarding present. Bowel sounds are unremarkable. Musculoskeletal: Normal ROM, no tenderness, There is no pedal edema. There is no calf tenderness or swelling. No cords were appreciated. Neurological: CN II-XII intact, Cranial nerves III through XII are intact. There are no obvious motor or sensory deficits. Coordination appears grossly intact. Speech is normal. Psychiatric: Cooperative, appropriate mood & affect, normal judgment. 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
[2024-02-14] MEDS ORDERED: hydrOXYzine pamoate 25 MG CAP PO PRN (15:54)
[2024-02-14] MEDS ORDERED: MECLIZINE 25 MG TAB PO PRN (15:54)
[2024-02-14] MEDS ORDERED: bisacodyL 10 MG SUPP RECTAL PRN (15:54)
[2024-02-14] MEDS ORDERED: IPRATROPIUM-ALBUTEROL 3 ML NEB IH PRN (15:54)
[2024-02-14] MEDS: ACETAMINOPHEN IV (For NPO) 1,000 MG in EMPTY BAG 1 BAG IVPB SCH (16:09)
[2024-02-14] MEDS: HEPARIN SODIUM,PORCINE 5,000 UNIT/ML 1 ML VIAL SQ SCH (16:10)
[2024-02-14] MEDS: ONDANSETRON 4 MG/2 ML VIAL IVP PRN (16:10)
[2024-02-14] MEDS: SODIUM CHLORIDE 0.45% 1,000 ML IV SCH (16:11)
[2024-02-14] MEDS: IPRATROPIUM-ALBUTEROL 3 ML NEB IH SCH (16:27)
[2024-02-14 16:45] LABS: Glucose,Whole Blood 242 mg/dL (70-110)
--- NOTE | 2024-02-14 16:53 | P.CONS ---
History of Present Illness - Reason for Consult Consult date: 02/14/24 - History of Present Illness Patient is a 73-year-old female with history of MEN1 syndrome, diabetes mellitus type 2, hypertension, hyperlipidemia, hypothyroidism and renal cancer was recently diagnosed with right upper lobe adenocarcinoma on a PET scan. Patient underwent robotic assisted thoracoscopic right upper lobectomy with mediastinal lymph node dissection on 02/14/2024. No intraoperative complications were note d. This is postop day 0. Patient is complaining of postoperative mild chest pain associated with mild nausea. Otherwise patient is not in any acute distress and denies any shortness of breath and/or cough. Patient is a non- smoker and has a very strong family history of multiple cancer. Internal medicine service has been consulted for the medical management. Review of systems: Pertinent positives and negatives as discussed in HPI, a complete review of systems was performed and all other systems are negative. Physical examination: Vital signs reviewed General: non toxic, no distress, appears at stated age, normal weight Derm: no unusual rashes/lesions, warm Head: atraumatic, normocephalic, symmetric Eyes: EOMI, no lid lag, anicteric sclera, pupils equal round reactive to light ENT: Nose and ears atraumatic Neck: No cervical lymphadenopathy, trachea midline, supple Mouth: no lip lesion, mucus membranes moist Cardiovascular: S1S2 reg, no murmur, positive dorsalis pedis pulse bilateral, no edema Lungs: CTA bilateral, no rhonchi, no rales, no accessory muscle use, surgical site clean and intact Abdominal: soft, nontender to palpation, no guarding Ext: muscle strength 5 out of 5 in all 4 extremities grossly, no gross muscle atrophy, no contractures, Neuro: CN II-XI grossly intact, no gross focal neuro deficits Psych: Alert, oriented, appropriate affect Assessment/Plan: Patient is a 73-year-old female with history of MEN1 syndrome, diabetes mellitus type 2, hypertension, hyperlipidemia, hypothyroidism and renal cancer was recently diagnosed with right upper lobe adenocarcinoma on a PET scan. Patient underwent robotic assisted thoracoscopic right upper lobectomy with mediastinal lymph node dissection on 02/14/2024. No intraoperative complications were noted. This is postop day 0. #Right lung adenocarcinoma status post right upper lobectomy Management including pain control as per cardiothoracic surgery Encourage use of incentive spirometry #Hyperglycemia in the setting of type 2 diabetes and reactive to above Recent HbA1c 6.9 Accu-Cheks and sliding scale insulin Continue monitor serum glucose level Chronic conditions: Hypothyroidism: Resume Synthroid Hypertension: Resume lisinopril 5 mg p.o. daily CBC and BMP tomorrow Thank you for allowing us to participate in the care of this pleasant patient. Do not hesitate to contact us with questions. Someone can be reached from the [facility] hospitalist group all hours of the day at [phone] or via Team[employer]. I have seen and evaluated the patient today. Discussed with the resident and agree with the residents finding and plan as documented in the resident's note. Changes highlighted in blue font. Past Medical History Past Medical History: Cancer, Diabetes Mellitus, Eye Disorder, GERD/Reflux, Hypertension, Osteoarthritis (OA), Thyroid Disorder Additional Past Medical History / Comment(s): Current right lung cancer. MEN(Multiple Endocrine Neoplasia) Syndrome Type 1, Diabetes Mellitus Type 2, hypertensive cardiovascular disease, hypothyroidism, Fuchs corneal dystrophy, nephrolithiasis, left inferior parathyroid adenoma, hx bladder cancer - "12 tumors from right ureter into right kidney treated with jelmyto chemotherapy". History of Any Multi-Drug Resistant Organisms: None Reported Past Surgical History: Adenoidectomy, Appendectomy, Cholecystectomy, Orthopedic Surgery, Tonsillectomy Additional Past Surgical History / Comment(s): Lithotripsy, trans obturator mid urethral sling, pancreatic stent, distal pancreatectomy, splenectomy, wrist open reduction and internal fixation, right corneal transplant, right wrist titanium jesse, uteroscope, bronchoscopy/right lung biopsy. Past Anesthesia/Blood Transfusion Reactions: Motion Sickness, Postoperative Nausea & Vomiting (PONV) Additional Past Anesthesia/Blood Transfusion Reaction / Comm: Vertigo. Daughter PONV. Smoking Status: Former smoker, Light tobacco smoker - Past Family History Mother Family Medical History: Coronary Artery Disease (CAD), Diabetes Mellitus Father Family Medical History: No Reported History Sister(s) Family Medical History: Cancer, Diabetes Mellitus Brother(s) Family Medical History: Cancer Daughter(s) Family Medical History: Pulmonary Embolus Son(s) Family Medical History: Deep Vein Thrombosis (DVT), Neurologic Disorder Additional Family Medical History / Comment(s): Traumatic brain injury r/t MVA. Medications and Allergies Home Medications Medication Instructions Recorded Confirmed Type Levothyroxine Sodium [Synthroid] 75 mcg PO MOTUWETH 12/12/13 02/10/24 History lisinopriL [Lisinopril] 5 mg PO 1400 12/12/13 02/10/24 History metFORMIN HCL [Glucophage] 500 mg PO BID 12/12/13 02/10/24 History Levothyroxine Sodium [Tirosint] 50 mcg PO SUFRSA 01/06/18 02/10/24 History Aspirin [Adult Low Dose Aspirin EC] 81 mg PO DAILY 02/04/21 02/10/24 History Docusate [Colace] 100 mg PO DAILY PRN 02/04/21 02/10/24 History Ergocalciferol [Vitamin D2 (1250 1,250 mcg PO WATTERS 02/04/21 02/10/24 History Mcg = 98180 Iu)] hydrOXYzine pamoate [Vistaril] 25 mg PO QID PRN #10 cap 09/25/21 02/10/24 Rx Meclizine [Antivert] 25 mg PO DAILY PRN 01/17/24 02/10/24 History traMADol HCL 50 mg PO Q6H PRN 02/10/24 02/10/24 History Allergies Allergy/AdvReac Type Severity Reaction Status Date / Time Sulfa (Sulfonamide Allergy Rash/Hives Verified 02/14/24 06:26 Antibiotics) codeine AdvReac Nausea & Verified 02/14/24 06:26 Vomiting phenazopyridine AdvReac Abdominal Verified 02/14/24 06:26 Pain Physical Exam Vitals: Vital Signs Temp Pulse Resp BP BP BP Pulse Ox 02/14/24 15:00 70 16 138/72 95 02/14/24 14:20 65 16 140/69 94 L 02/14/24 13:50 65 16 156/77 93 L 02/14/24 13:20 63 16 159/76 94 L 02/14/24 12:50 59 L 16 153/75 166/78 100 02/14/24 12:35 62 16 152/75 162/78 100 02/14/24 12:20 63 16 159/100 180/83 100 02/14/24 12:04 64 16 176/87 157/84 100 02/14/24 11:49 66 16 169/80 155/72 100 02/14/24 11:34 96.8 F L 70 18 150/79 96 02/14/24 07:54 51 L 18 146/82 100 02/14/24 07:10 58 L 16 145/83 100 02/14/24 06:38 97.5 F L 62 18 173/75 99 Intake and Output 02/14/24 02/14/24 02/14/24 06:59 14:59 22:59 Intake Total 2074 Output Total 1565 Balance 510 Intake: IV 2074 Output: Urine 1550 Estimated Blood Loss 15 Other: Weight 59.1 kg Results Labs: Abnormal Lab Results - Last 24 Hours (Table) 02/14/24 02/14/24 02/14/24 Range/Units 06:53 14:51 16:39 POC Glucose (mg/dL) 133 H 193 H 242 H (70-110) mg/dL
--- NOTE | 2024-02-14 17:06 | XR ---
EXAMINATION TYPE: XR chest 1V DATE OF EXAM: 02/14/2024 4:30 PM COMPARISON: 02/14/2024 CLINICAL INDICATION: Female, 73 years old with history of Postop right upper lobectomy, TECHNIQUE: XR chest 1V view(s) obtained. FINDINGS: The heart size is normal. The pulmonary vasculature is normal. The lungs are clear. No pneumothorax is evident. Right-sided chest tube remains in position. Patient is rotated to the right. IMPRESSION: 1. No pneumothorax evident. Right-sided chest tube is stable in position [facility], , 02/14/2024 5:04 PM
[2024-02-14] MEDS: INSULIN ASPART (NovoLOG) 100 UNIT/ML VIAL SQ SCH (17:58)
--- NOTE | 2024-02-14 20:01 | P.ANPRN ---
Procedure Note - Anesthesia - Nerve Block Performed Right Erector Spinae Single Time Out Performed: Yes Date of Procedure: 02/14/24 Procedure Start Time: :44 Procedure Stop Time: 07:48 Location of Patient: PreOp Indication: Acute Post-Operative Pain, Requested by Surgeon Sedation Type: Sedate with meaningful contact maintained Preparation: Sterile Prep Position: Sitting Needle Types: Pajunk Needle Gauge: 21 Ultrasound used to visualize needle placement: Yes Ultrasound used to observe medication spread: Yes Blood Aspirated: No Pain Paresthesia on Injection Noted: No Resistance on Injection: Normal Image Stored and Saved: Yes Events: Uneventful and Well Tolerated (Ropivacaine 0.5% 15 cc plus normal saline 10 cc plus dexamethasone 4 mg given at T6 on the right side)
--- NOTE | 2024-02-14 20:07 | P.ANPRN ---
Procedure Note - Anesthesia - Invasive Line Right Arterial Line Time Out Performed: Yes Date of Procedure: 02/14/24 Time of Procedure: 07:14 Location of Patient: PreOp Preparation: Sterile Prep, Sterile Dressing Arterial Line Location: Radial Ultrasound Used: No Purpose - Visualization and Identification of Vasculature: No Image Stored and Saved: No Narrative: Invasive line placement per sterile protocol utilized.
[2024-02-14 20:08] LABS: Glucose,Whole Blood 161 mg/dL (70-110)
[2024-02-14] MEDS: FORMOTEROL FUMARATE 20 MCG/2 ML NEBU INHALATION SCH (21:16)
[2024-02-14] MEDS: traMADol 50 MG TAB PO PRN (21:23)
[2024-02-14] MEDS: METOCLOPRAMIDE 5 MG/ML 2 ML VIAL IVP PRN (21:26)
[2024-02-15 06:01] LABS: Glucose,Whole Blood 166 mg/dL (70-110)
[2024-02-15] MEDS: LEVOTHYROXINE 75 MCG TAB PO SCH (06:16)
[2024-02-15 07:37] LABS: Basophils % (A) 0 %; Eosinophils % (A) 0 %; HCT 33.8 % (34.0-46.0); HGB 10.5 gm/dL (11.4-16.0); Hypochromasia Marked; Lymphocytes # (A) 2.5 k/uL (1.0-4.8); Lymphocytes % (A) 17 %; MCHC 31.1 g/dL (31.0-37.0); Macrocytosis Slight; Mean Platelet Volume 9.2; Monocytes # (A) 0.8 k/uL (0-1.0); Monocytes % (A) 6 %; Neutrophils % (A) 75 %; Platelet Count 268 k/uL (150-450); RBC 3.19 m/uL (3.80-5.40); RDW 12.5 % (11.5-15.5); WBC 14.6 k/uL (3.8-10.6)
[2024-02-15 08:07] LABS: African American GFR (CKD) >90 (>60 ml/min/1.73 sqM); Anion Gap 7 mmol/L; Blood Urea Nitrogen 11 mg/dL (7-17); Calcium 9.1 mg/dL (8.4-10.2); Carbon Dioxide 24 mmol/L (22-30); Chloride 101 mmol/L (98-107); Glucose 147 mg/dL (74-99); Non-African American GFR(CKD) >90 (>60 ml/min/1.73 sqM); Sodium 132 mmol/L (137-145)
--- NOTE | 2024-02-15 08:41 | XR ---
EXAMINATION TYPE: XR chest 1V portable DATE OF EXAM: 02/15/2024 7:38 AM COMPARISON: Chest radiographs from 02/14/2024 CLINICAL INDICATION: Female, 73 years old with history of Postop right upper lobectomy; [facility] TECHNIQUE: XR chest 1V portable Frontal view of the chest. FINDINGS: Lungs/Pleura: Right thoracotomy tube without evidence of pneumothorax. There is no evidence of pleura l effusion, focal consolidation, or left pneumothorax. Pulmonary vascularity: Unremarkable. Heart/mediastinum: Cardiomediastinal silhouette is unremarkable. Musculoskeletal: No acute osseous pathology. Subcutaneous emphysema along the right chest wall. IMPRESSION: 1. Right thoracotomy tube without evidence of appreciable pneumothorax. 2. Left lung base airspace opacities. [facility], , 02/15/2024 8:39 AM
[2024-02-15] MEDS: ASPIRIN 81 MG PO SCH (09:10)
[2024-02-15] MEDS ORDERED: ACETAMINOPHEN TAB 325 MG TAB PO PRN (09:23)
--- NOTE | 2024-02-15 09:41 | P.PN ---
Subjective Progress Note Date: 02/15/24 Principal diagnosis: Pulmonary adenocarcinoma right upper lobe lung. 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 POD #1 robotic assisted thoracoscopic right upper lobectomy with mediastinal lymph node dissection The patient was seen and examined in follow-up today February 15, 2024 at her bedside on the third floor cardiac stepdown unit. The patient is currently sitting up in bed eating her breakfast, is awake, alert, oriented x 3 and is in no acute apparent distress. She denies any complaints of shortness of breath at this time, although is complaining of some surgical type pain with taking a deep breath, currently rating her pain 3-4 out of 10 on the pain scale. She reports the current pain medications she is taking is controlling her pain. She also reports that she has had some episodes of nausea which she states is chronic in nature. Oxygen saturations are 97% on room air and she is achieving 1000 mL on her incentive spirometry with encouragement. Right pleural chest tube remains in place to waterseal. No air leak is present. Draining thin serosanguineous drainage with 20 mL output in the last 8 hours and 180 mL output since surgery. Remote telemetry showing sinus bradycardia heart rate 59 bpm. She has been afebrile in the last 24 hours. Laboratory and chest x-ray results were reviewed. Objective - Vital Signs Vital signs: Vital Signs Temp 97.6 F 02/15/24 03:39 Pulse 72 02/15/24 08:28 Resp 20 02/15/24 03:39 BP 127/70 02/15/24 03:39 Pulse Ox 97 02/15/24 03:39 FiO2 Intake & Output 02/14/24 02/15/24 02/15/24 18:59 06:59 18:59 Intake Total 2203 160 118 Output Total 1565 8 Balance 638 -1878 118 Weight 59 kg Intake: IV 2074 40 Invasive Line 2 20 Invasive Line 3 20 Intake, IV Titration 10 Amount Sodium Chloride 0.45% 1, 10 000 ml @ 50 mls/hr IV . Q20H [facility] Rx#:[id number] Oral 118 120 118 Output: Chest Tube Drainage 48 Chest Tube Right 48 Urine 1550 1989 Uretheral (Lopez) 700 Estimated Blood Loss 15 Other: Voiding Method Indwelling Catheter Bedside Commode - Exam CONSTITUTIONAL: Appears comfortable, cooperative, no acute distress RESPIRATORY: Lungs sounds diminished bilaterally. Respirations even, nonlabored. Currently on room air with oxygen saturation 97%. Able to achieve 1000 mL on her incentive spirometry. Strong cough. CARDIOVASCULAR: S1, S2 present. Regular rate and rhythm, sinus bradycardia rh ythm on remote telemetry, heart rate 59 bpm. Palpable peripheral pulses bilaterally. No edema present. No calf pain or tenderness noted. SCDs present. GASTROINTESTINAL: Abdomen soft, nontender, nondistended. Active bowel sounds present 4 quadrants. Tolerating diet. Passing flatus. GENITOURINARY: Continues to void clear, yellow urine, urine output 1290 mL in the last 8 hours. INTEGUMENTARY: Skin is warm and dry with evidence of good perfusion. Right chest thoracic incisions well approximated and covered with dressing clean, dry and intact dressing. NEUROLOGIC: Cranial nerves II through XII intact. No focal deficits. MUSKULOSKELETAL: Able to move all extremities, strength equal bilaterally, gait normal. PSYCHIATRIC: Alert and oriented to person place and time, appropriate affect, intact judgment and insight. INVASIVE LINES AND TUBES: Right pleural chest tube present and is to waterseal, no air leaks present. Right pleural chest tube with 20 mL thin serosanguineous drainage overnight, 180 mL in the last 24 hours. - Allied health notes Allied health notes reviewed: nursing - Labs CBC & Chem 7: 02/15/24 06:34 02/15/24 06:34 Labs: Abnormal Lab Results - Last 24 Hours (Table) 02/14/24 02/14/24 02/14/24 Range/Units 14:51 16:39 20:06 WBC (3.8-10.6) k/uL RBC (3.80-5.40) m/uL Hgb (11.4-16.0) gm/dL Hct (34.0-46.0) % MCV (80.0-100.0) fL Neutrophils # (1.3-7.7) k/uL Sodium (137-145) mmol/L Glucose (74-99) mg/dL POC Glucose (mg/dL) 193 H 242 H 161 H (70-110) mg/dL 11/12/24 11/12/24 11/12/24 Range/Units 05:59 06:34 06:34 WBC 14.6 H (3.8-10.6) k/uL RBC 3.19 L (3.80-5.40) m/uL Hgb 10.5 L (11.4-16.0) gm/dL Hct 33.8 L (34.0-46.0) % MCV 106.0 H (80.0-100.0) fL Neutrophils # 11.0 H (1.3-7.7) k/uL Sodium 132 L (137-145) mmol/L Glucose 147 H (74-99) mg/dL POC Glucose (mg/dL) 166 H (70-110) mg/dL - Imaging and Cardiology Chest x-ray: report reviewed, image reviewed Assessment and Plan Assessment: Pulmonary adenocarcinoma right upper lobe lung, status post robotic assisted thoracoscopic right upper lobectomy with mediastinal lymph node dissection 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 Encourage use of incentive spirometry 10 times every hour while awake. Continue to monitor daily chest x-rays. Increase activity as tolerated, out of bed for all meals. Ambulate in the hallway as tolerated. Continue to follow surgical pathology results, results remain pending. Medical management other comorbidities per primary care and pulmonology services. Pain control per current as needed orders. Discharge planning is in place, anticipate discharge home within the next 24 hours. More recommendations to follow based on patient's clinical course. Time with Patient: Greater than 30
--- NOTE | 2024-02-15 11:22 | P.PN ---
Subjective Progress Note Date: 02/15/24 Subjective: Patient seen and examined at the bedside. No acute events overnight. Right chest tube to waterseal. Postop day 1 All Systems reviewed and pertinent positives and negatives noted in HPI, all other symptoms are negative Objective: Physical examination: Vital signs reviewed General: non toxic, no distress, appears at stated age, normal weight Derm: no unusual rashes/lesions, warm HEENT: Normocephalic and atraumatic. EOMI and PERRLA, centrally located trachea Cardiovascular: S1S2 reg, no murmur, positive dorsalis pedis pulse bilateral, no edema Lungs: CTABL, no wheezing rales or crackles. Surgical site clean and intact, right chest tube to waterseal in place Abdominal: soft, nontender to palpation, no guarding Ext: muscle strength 5 out of 5 in all 4 extremities grossly, no gross muscle atrophy, no contractures, Neuro: CN II-XI grossly intact, no gross focal neuro deficits Psych: Alert, oriented, appropriate affect Data review today: Pertinent Labs: WBC 14.6, hemoglobin 10.5, MCV 106.0, sodium 132, potassium 4.0, creatinine 0.56, glucose 147, calcium 9.1 Imaging: Chest x-ray independently interpreted show right thoracotomy tube in place without any evidence of pneumothorax; mild bilateral pleural opacities noted. Assessment/Plan: Patient is a 73-year-old female with history of MEN1 syndrome, diabetes mellitus type 2, hypertension, hyperlipidemia, hypothyroidism and renal cancer was recently diagnosed with right upper lobe adenocarcinoma on a PET scan. Patient underwent robotic assisted thoracoscopic right upper lobectomy with mediastinal lymph node dissection on 02/14/2024. No intraoperative complications were noted. This is postop day 1. #Right lung adenocarcinoma status post right upper lobectomy Management including pain control as per cardiothoracic surgery Encourage use of incentive spirometry #Hyperglycemia in the setting of type 2 diabetes and reactive to above Recent HbA1c 6.9 Accu-Cheks and sliding scale insulin Continue monitor serum glucose level, monitor for hypoglycemia #Leukocytosis likely reactive to above WBC 14.6 Continue monitor CBC #Macrocytic anemia and postoperative anemia, anticipated Hemoglobin 10.5 and MCV 106 Order vitamin B12 and RBC folate Continue monitor CBC #Euvolemic hyponatremia likely reactive to above Sodium 132 Monitor BMP Chronic conditions: Hypothyroidism: Resume Synthroid Hypertension: Resume lisinopril 5 mg p.o. daily Thank you for allowing us to participate in the care of this pleasant patient. Do not hesitate to contact us with questions. Someone can be reached from the [facility] hospitalist group all hours of the day at [phone] or via perfect serve. I have seen and evaluated the patient today. Discussed with the resident and agree with the residents finding and plan as documented in the resident's note. Changes highlighted in blue font. Objective - Vital Signs Vital signs: Vital Signs Temp 97.8 F 02/15/24 08:00 Pulse 72 02/15/24 08:28 Resp 20 02/15/24 08:00 BP 127/66 02/15/24 08:00 Pulse Ox 93 L 02/15/24 08:00 FiO2 Intake & Output 02/14/24 02/15/24 02/15/24 18:59 06:59 18:59 Intake Total 2203 160 118 Output Total 1565 2038 Balance 638 -1878 118 Weight 59 kg Intake: IV 2075 40 Invasive Line 2 20 Invasive Line 3 20 Intake, IV Titration 10 Amount Sodium Chloride 0.45% 1, 10 000 ml @ 50 mls/hr IV . Q20H [facility] Rx#:[id number] Oral 118 120 118 Output: Chest Tube Drainage 48 Chest Tube Right 48 Urine 1550 1990 Uretheral (Lopez) 700 Estimated Blood Loss 15 Other: Voiding Method Indwelling Catheter Bedside Commode Bedside Commode - Labs CBC & Chem 7: 02/15/24 06:34 02/15/24 06:34 Labs: Abnormal Lab Results - Last 24 Hours (Table) 02/14/24 02/14/24 02/14/24 Range/Units 14:51 16:39 20:06 WBC (3.8-10.6) k/uL RBC (3.80-5.40) m/uL Hgb (11.4-16.0) gm/dL Hct (34.0-46.0) % MCV (80.0-100.0) fL Neutrophils # (1.3-7.7) k/uL Sodium (137-145) mmol/L Glucose (74-99) mg/dL POC Glucose (mg/dL) 193 H 242 H 161 H (70-110) mg/dL 02/15/24 02/15/24 02/15/24 Range/Units 05:59 06:34 06:34 WBC 14.6 H (3.8-10.6) k/uL RBC 3.19 L (3.80-5.40) m/uL Hgb 10.5 L (11.4-16.0) gm/dL Hct 33.8 L (34.0-46.0) % MCV 106.0 H (80.0-100.0) fL Neutrophils # 11.0 H (1.3-7.7) k/uL Sodium 132 L (137-145) mmol/L Glucose 147 H (74-99) mg/dL POC Glucose (mg/dL) 166 H (70-110) mg/dL
[2024-02-15 11:34] LABS: Glucose,Whole Blood 195 mg/dL (70-110)
[2024-02-15] MEDS: DOCUSATE 100 MG CAP PO PRN (12:27)
[2024-02-15] MEDS: lisinopriL 5 MG TAB PO SCH (12:27)
--- NOTE | 2024-02-15 12:38 | P.PN ---
Subjective Progress Note Date: 02/15/24 Principal diagnosis: POD #1 robotic assisted thoracoscopic right upper lobectomy with mediastinal lymph node dissection This is a 73-year-old female, well-known to my service, I saw this patient recently for abnormal CT of the chest. Patient was seen in the office on consultationfor an 18 x 13 mm nodule in the right upper lobe. Patient underwent robotic bronchoscopy and she was found to have adenocarcinoma involving the right upper lobe with negative EBUS findings. Patient was referred to Dr. King and today the patient underwent robotic assisted thoracoscopic right u pper lobectomy with mediastinal lymph node dissection, postoperatively I was asked to see the patient in consultation. Patient is doing well, she was seen actually in the recovery room, complaining of some pain and discomfort, chest x- ray showed no evidence of pneumothorax, right-sided chest tube in proper position, and no immediate postoperative complications. Patient is receiving pain medication for discomfort. Looking at this patient's PFT, she had a PFT recently in my office, her FEV1 is 97% FEV1/FVC is 87%. Minimal air leak noted in the Pleur-evac today. Patient will be sent to the floor in the next half hour Patient was seen today on 02/15/2024, patient is resting comfortably, does not seem to be in any distress. Continues to have right-sided chest tube in place, patient has some vague chest pain/expected postsurgical pain, she is on room air O2 saturation 97% achieving 1000 cc on her incentive spirometer minimal air leak noted mostly with coughing, patient is in sinus bradycardia, WBC count is 14.6 hemoglobin 10.5 electrolytes are normal renal profile is normal. Is 9.1 chest x-ray showed no evidence of acute process, chest x-ray also showed no evidence of pneumothorax and chest tube in proper position. Objective - Vital Signs Vital signs: Vital Signs Temp 97.8 F 02/15/24 08:00 Pulse 72 02/15/24 08:28 Resp 20 02/15/24 08:00 BP 127/66 02/15/24 08:00 Pulse Ox 93 L 02/15/24 08:00 FiO2 Intake & Output 02/14/24 02/15/24 02/15/24 18:59 06:59 18:59 Intake Total 2203 160 118 Output Total 1567 2038 Balance 638 -1878 118 Weight 59 kg Intake: IV 2074 40 Invasive Line 2 20 Invasive Line 3 20 Intake, IV Titration 10 Amount Sodium Chloride 0.45% 1, 10 000 ml @ 50 mls/hr IV . Q20H [facility] Rx#:[id number] Oral 118 120 118 Output: Chest Tube Drainage 48 Chest Tube Right 48 Urine 1550 1989 Uretheral (Lopez) 700 Estimated Blood Loss 15 Other: Voiding Method Indwelling Catheter Bedside Commode Bedside Commode - Exam General: Revealed 73-year-old female in no distress, on room air Skin: Skin is warm and dry and no rashes or lesions are noted. Eye: Pupils are equal, round and reactive to light, extra-ocular movements are intact; there is normal conjunctiva bilaterally. Ears, nose, mouth and throat: There are moist mucous membranes and no oral lesions. Neck: The neck is supple, there is no tenderness or JVD. Cardiovascular: There is a regular rate and rhythm. No murmur, rub or gallop is appreciated. Respiratory: Symmetrical chest expansion no crackles rhonchi or wheezes right- sided chest tube is noted Gastrointestinal: Soft, non-distended, non-tender abdomen without masses or organomegaly noted. There is no rebound or guarding present. Bowel sounds are unremarkable. Musculoskeletal: Normal ROM, no tenderness, There is no pedal edema. There is no calf tenderness or swelling. No cords were appreciated. Neurological: CN II-XII intact, Cranial nerves III through XII are intact. Psychiatric: Normal mood, affect and no mental status examination - Labs CBC & Chem 7: 02/15/24 06:34 02/15/24 06:34 Labs: Abnormal Lab Results - Last 24 Hours (Table) 02/14/24 02/14/24 02/14/24 Range/Units 14:51 16:39 20:06 WBC (3.8-10.6) k/uL RBC (3.80-5.40) m/uL Hgb (11.4-16.0) gm/dL Hct (34.0-46.0) % MCV (80.0-100.0) fL Neutrophils # (1.3-7.7) k/uL Sodium (137-145) mmol/L Glucose (74-99) mg/dL POC Glucose (mg/dL) 193 H 242 H 161 H (70-110) mg/dL 11/03/2802/15/24 02/15/24 Range/Units 05:59 06:34 06:34 WBC 14.6 H (3.8-10.6) k/uL RBC 3.19 L (3.80-5.40) m/uL Hgb 10.5 L (11.4-16.0) gm/dL Hct 33.8 L (34.0-46.0) % MCV 106.0 H (80.0-100.0) fL Neutrophils # 11.0 H (1.3-7.7) k/uL Sodium 132 L (137-145) mmol/L Glucose 147 H (74-99) mg/dL POC Glucose (mg/dL) 166 H (70-110) mg/dL 02/15/24 Range/Units 11:32 WBC (3.8-10.6) k/uL RBC (3.80-5.40) m/uL Hgb (11.4-16.0) gm/dL Hct (34.0-46.0) % MCV (80.0-100.0) fL Neutrophils # (1.3-7.7) k/uL Sodium (137-145) mmol/L Glucose (74-99) mg/dL POC Glucose (mg/dL) 195 H (70-110) mg/dL Assessment and Plan Assessment: Impression: Status post robotic assisted right upper lobectomy and mediastinal node dissection postoperative day #1 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
[2024-02-15 16:43] LABS: Glucose,Whole Blood 162 mg/dL (70-110)
[2024-02-15] MEDS: metFORMIN 500 MG TAB PO SCH (17:54)
[2024-02-15 20:27] LABS: Glucose,Whole Blood 128 mg/dL (70-110)
[2024-02-16 06:35] LABS: Glucose,Whole Blood 146 mg/dL (70-110)
--- NOTE | 2024-02-16 07:29 | XR ---
EXAMINATION TYPE: XR chest 2V DATE OF EXAM: 02/16/2024 6:18 AM COMPARISON: None. CLINICAL INDICATION: Female, 73 years old with history of post op right upper lobectomy, TECHNIQUE: XR chest 2V view(s) obtained. FINDINGS: The heart size is normal. The pulmonary vasculature is normal. Mild left lower lobe infiltrate is present. There is blunting left costophrenic angle. Films right hull prahilar region is present. Chest 2 views. Residual subcutaneous emphysema seen along the lateral right chest. No large pneumotho rax. Some minimal medial right apical pneumothorax not excluded IMPRESSION: 1. There is some minimal medial right apical pneumothorax present. 2. Left lower lobe infiltrate. 3. Fullness in the right suprahilar region [facility], , 02/16/2024 7:26 AM
[2024-02-16 07:37] LABS: Basophils % (A) 0 %; Eosinophils # (A) 0.3 k/uL (0-0.7); Eosinophils % (A) 3 %; HCT 34.2 % (34.0-46.0); HGB 10.9 gm/dL (11.4-16.0); Hypochromasia Slight; Lymphocytes # (A) 3.2 k/uL (1.0-4.8); Lymphocytes % (A) 24 %; MCHC 31.9 g/dL (31.0-37.0); MCV 103.3 fL (80.0-100.0); Macrocytosis Slight; Mean Platelet Volume 8.6; Monocytes # (A) 0.5 k/uL (0-1.0); Monocytes % (A) 4 %; Neutrophils # (A) 8.7 k/uL (1.3-7.7); Neutrophils % (A) 67 %; Platelet Count 289 k/uL (150-450); RBC 3.31 m/uL (3.80-5.40); RDW 12.8 % (11.5-15.5); WBC 12.9 k/uL (3.8-10.6)
[2024-02-16 07:51] LABS: Potassium 4.4 mmol/L (3.5-5.1)
[2024-02-16 07:52] LABS: African American GFR (CKD) >90 (>60 ml/min/1.73 sqM); Anion Gap 6 mmol/L; Blood Urea Nitrogen 9 mg/dL (7-17); Calcium 9.1 mg/dL (8.4-10.2); Carbon Dioxide 25 mmol/L (22-30); Chloride 102 mmol/L (98-107); Glucose 164 mg/dL (74-99); Non-African American GFR(CKD) 89 (>60 ml/min/1.73 sqM); Sodium 133 mmol/L (137-145)
[2024-02-16 09:27] VITALS: BP 137/80; PULSE 87; RESP 18; TEMP 98.3
--- NOTE | 2024-02-16 11:45 | P.DS ---
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 Valle for primary care and Dr. Parsons for pulmonology. She was recently diagnosed with early kidney cancer, in preparation for possible partial nephrectomy she undewent PET scan which showed a lesion in the right upper lobe of the lung, SUV 3 and no evidence of metastasis. EBUS was performed and was negative for any lymph jerry enlargement and robotic biopsy of the right upper lobe mass was performed bronchoscopically which was positive for invasive adenocarcinoma. The patient was referred to Dr. King from cardiothoracic surgery. She was recommended to undergo robotic lobectomy. The usual perioperative course was discussed in detail with the patient and her family, all risks and benefits were explained, all questions were answered, and consent was obtained to proceed with surgery. The patient was scheduled at the earliest possible date. HOSPITAL COURSE: The patient was brought to the hospital on 02/14/24, taken to the preoperative area, prepared in the usual fashion, and subsequently taken to the operating room where Dr. King performed robotic assisted thoracoscopic right upper lobectomy with mediastinal lymph node dissection. Upon completion of surgery the patient was extubated and transferred to the recovery room for further monitoring. She was eventually admitted to 3S cardiac stepdown unit for further monitoring. She had no air leak and her chest tube was placed to water seal the night of surgery, removed on post operative day number one, and follow up chest x-ray was stable. Her oxygen was titrated down, she was tolerating oral diet, her pain was controlled, and she was ready to be discharged to home on postoperative day #. She received written and verbal instruction regarding her medications, activity restrictions, signs and symptoms requiring physician notification, and follow-up appointments. Patient Condition at Discharge: Stable Plan - Discharge Summary Discharge Rx Participant: Yes New Discharge Prescriptions: New Acetaminophen Tab [Tylenol] 650 mg PO Q6HR PRN tab PRN Reason: Fever And/ Or Pain Continue lisinopriL [Lisinopril] 5 mg PO 1400 Levothyroxine Sodium [Synthroid] 75 mcg PO MOTUWETH metFORMIN HCL [Glucophage] 500 mg PO BID Levothyroxine Sodium [Tirosint] 50 mcg PO SUFRSA Docusate [Colace] 100 mg PO DAILY PRN PRN Reason: Constipation hydrOXYzine pamoate [Vistaril] 25 mg PO QID PRN #10 cap PRN Reason: Nausea And Vomiting traMADol HCL 50 mg PO Q6H PRN PRN Reason: Pain Aspirin [Adult Low Dose Aspirin EC] 81 mg PO DAILY Ergocalciferol [Vitamin D2 (1250 Mcg = 92574 Iu)] 1,250 mcg PO WATTERS Meclizine [Antivert] 25 mg PO DAILY PRN PRN Reason: Vertigo Discharge Medication List Levothyroxine Sodium [Synthroid] 75 mcg PO MOTUWETH 12/12/13 [History] lisinopriL [Lisinopril] 5 mg PO 1400 12/12/13 [History] metFORMIN HCL [Glucophage] 500 mg PO BID 12/12/13 [History] Levothyroxine Sodium [Tirosint] 50 mcg PO SUFRSA 01/06/18 [History] Aspirin [Adult Low Dose Aspirin EC] 81 mg PO DAILY 02/04/21 [History] Docusate [Colace] 100 mg PO DAILY PRN 02/04/21 [History] Ergocalciferol [Vitamin D2 (1250 Mcg = 27545 Iu)] 1,250 mcg PO WATTERS 02/04/21 [History] hydrOXYzine pamoate [Vistaril] 25 mg PO QID PRN #10 cap 09/25/21 [Rx] Meclizine [Antivert] 25 mg PO DAILY PRN 01/17/24 [History] traMADol HCL 50 mg PO Q6H PRN 02/10/24 [History] Acetaminophen Tab [Tylenol] 650 mg PO Q6HR PRN tab 02/16/24 [Rx] Follow up Appointment(s)/Referral(s): Coni Parsons MD [STAFF PHYSICIAN] - 03/01/24 10:00 am Clovis King MD [STAFF PHYSICIAN] - 02/24/24 2:00 pm Paul Valle DO [Primary Care Provider] - As Needed Activity/Diet/Wound Care/Special Instructions: DISCHARGE INSTRUCTIONS: 1. No driving for 2 weeks, or until physician gives their ok. 2. No lifting, pushing, or pulling more than 10 pounds for 2 weeks. The physician will advise of any restriction changes. 3. Continue pain control per as needed orders. Alternate acetaminophen (Tylenol) and ibuprofen (Motrin/Advil) for pain. 4. Continue with incentive spirometry and splinting until otherwise directed by the physician. 5. Leave chest tube dressing for 48 hours. After that, remove all dressings and shower daily. 6. Routine incision care. No powders, lotions, ointments on incisions. 7. Please call surgeon/[employer] [facility] for temp greater than 101 F or purulent drainage from incisions. 8. Smoking cessation counseling and program information provided. Quitting smoking is the most important step you can take to improve your health. For additional information and assistance to quit smoking, please call the [place] tobacco quit line (1-432-NIFB-NOW/ ) or online: [email or web address].gov/[email or web address] Discharge Disposition: HOME SELF-CARE
[2024-02-16 11:51] LABS: Glucose,Whole Blood 133 mg/dL (70-110)
--- NOTE | 2024-02-16 12:59 | P.PN ---
Subjective Progress Note Date: 02/16/24 Principal diagnosis: POD #2 robotic assisted thoracoscopic right upper lobectomy with mediastinal lymph node dissection This is a 73-year-old female, well-known to my service, I saw this patient recently for abnormal CT of the chest. Patient was seen in the office on consultationfor an 18 x 13 mm nodule in the right upper lobe. Patient underwent robotic bronchoscopy and she was found to have adenocarcinoma involving the right upper lobe with negative EBUS findings. Patient was referred to Dr. King and today the patient underwent robotic assisted thoracoscopic right u pper lobectomy with mediastinal lymph node dissection, postoperatively I was asked to see the patient in consultation. Patient is doing well, she was seen actually in the recovery room, complaining of some pain and discomfort, chest x- ray showed no evidence of pneumothorax, right-sided chest tube in proper position, and no immediate postoperative complications. Patient is receiving pain medication for discomfort. Looking at this patient's PFT, she had a PFT recently in my office, her FEV1 is 97% FEV1/FVC is 87%. Minimal air leak noted in the Pleur-evac today. Patient will be sent to the floor in the next half hour Patient was seen today on 02/15/2024, patient is resting comfortably, does not seem to be in any distress. Continues to have right-sided chest tube in place, patient has some vague chest pain/expected postsurgical pain, she is on room air O2 saturation 97% achieving 1000 cc on her incentive spirometer minimal air leak noted mostly with coughing, patient is in sinus bradycardia, WBC count is 14.6 hemoglobin 10.5 electrolytes are normal renal profile is normal. Is 9.1 chest x-ray showed no evidence of acute process, chest x-ray also showed no evidence of pneumothorax and chest tube in proper position. Seen today on 02/16/2024, patient is doing well, her chest tube was removed yesterday, asymptomatic, pain is under control, be considered for discharge home today. This x-ray is reassuring she does have a small right apical pneumothorax does not seem to be clinically significant. Objective - Vital Signs Vital signs: Vital Signs Temp 98.3 F 02/16/24 08:20 Pulse 87 02/16/24 08:20 Resp 18 02/16/24 08:20 BP 137/80 02/16/24 08:20 Pulse Ox 95 02/16/24 08:20 FiO2 Intake & Output 02/15/24 02/16/24 02/16/24 18:59 06:59 18:59 Intake Total 618 40 260 Output Total 200 Balance 618 -160 260 Weight 60.1 kg Intake: IV 40 20 Invasive Line 2 20 10 Invasive Line 3 20 10 Intake, IV Titration 500 Amount ACETAMINOPHEN IV (For NPO 100 ) 1,000 mg In Empty Bag 1 bag @ 400 mls/hr IVPB Q6HR [facility] Rx#:[id number] Sodium Chloride 0.45% 1, 400 000 ml @ 50 mls/hr IV . Q20H [facility] Rx#:[id number] Oral 118 240 Output: Urine 200 Other: Voiding Method Bedside Commode Toilet Toilet Bedside Commode Bedside Commode # Voids 1 - Exam General: Revealed 73-year-old female in no distress, on room air Skin: Skin is warm and dry and no rashes or lesions are noted. Eye: Pupils are equal, round and reactive to light, extra-ocular movements are intact; there is normal conjunctiva bilaterally. Ears, nose, mouth and throat: There are moist mucous membranes and no oral lesions. Neck: The neck is supple, there is no tenderness or JVD. Cardiovascular: There is a regular rate and rhythm. No murmur, rub or gallop is appreciated. Respiratory: Symmetrical chest expansion no crackles rhonchi or wheezes Gastrointestinal: Soft nontender no rebound no guarding Musculoskeletal: No deformities and no limitation range of motion Neurological: CN II-XII intact, Cranial nerves III through XII are intact. Psychiatric: Normal mood, affect and no mental status examination - Labs CBC & Chem 7: 02/16/24 07:22 02/16/24 07:22 Labs: Abnormal Lab Results - Last 24 Hours (Table) 02/15/24 02/15/24 02/16/24 Range/Units 16:42 20:26 06:34 WBC (3.8-10.6) k/uL RBC (3.80-5.40) m/uL Hgb (11.4-16.0) gm/dL MCV (80.0-100.0) fL Neutrophils # (1.3-7.7) k/uL Sodium (137-145) mmol/L Glucose (74-99) mg/dL POC Glucose (mg/dL) 162 H 128 H 146 H (70-110) mg/dL 02/16/24 02/16/24 02/16/24 Range/Units 07:22 07:22 11:49 WBC 12.9 H (3.8-10.6) k/uL RBC 3.31 L (3.80-5.40) m/uL Hgb 10.9 L (11.4-16.0) gm/dL MCV 103.3 H (80.0-100.0) fL Neutrophils # 8.7 H (1.3-7.7) k/uL Sodium 133 L (137-145) mmol/L Glucose 164 H (74-99) mg/dL POC Glucose (mg/dL) 133 H (70-110) mg/dL Assessment and Plan Assessment: Impression: Status post robotic assisted right upper lobectomy and mediastinal node dis section postoperative day #2 Recently diagnosed adenocarcinoma involving right upper lobe History of urothelial carcinoma History of hypothyroidism, 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
--- NOTE | 2024-02-16 16:40 | P.PN ---
Subjective Progress Note Date: 02/16/24 Subjective: Patient seen and examined at the bedside. No acute events overnight. Right chest tube is removed. Postop day 2 All Systems reviewed and pertinent positives and negatives noted in HPI, all o ther symptoms are negative Objective: Physical examination: Vital signs reviewed General: non toxic, no distress, appears at stated age, normal weight Derm: no unusual rashes/lesions, warm HEENT: Normocephalic and atraumatic. EOMI and PERRLA, centrally located trachea Cardiovascular: S1S2 reg, no murmur, positive dorsalis pedis pulse bilateral, no edema Lungs: CTABL, no wheezing rales or crackles. Surgical site clean and intact Abdominal: soft, nontender to palpation, no guarding Ext: muscle strength 5 out of 5 in all 4 extremities grossly, no gross muscle atrophy, no contractures, Neuro: CN II-XI grossly intact, no gross focal neuro deficits Psych: Alert, oriented, appropriate affect Data review today: Pertinent Labs: WBC 12.9, hemoglobin 10.9, sodium 133, potassium 4.4, creatinine 0.62, glucose 133, calcium 9.1, vitamin B12 520 Imaging: Chest x-ray independently interpreted show some minimal medial right apical pneumothorax with left lower lobe infiltrate. Assessment/Plan: Patient is a 73-year-old female with history of MEN1 syndrome, diabetes mellitus type 2, hypertension, hyperlipidemia, hypothyroidism and renal cancer was recently diagnosed with right upper lobe adenocarcinoma on a PET scan. Patient underwent robotic assisted thoracoscopic right upper lobectomy with mediastinal lymph node dissection on 02/14/2024. No intraoperative complications were noted. This is postop day 2. Patient is medically optimized to be discharged from medicine standpoint. #Right lung adenocarcinoma status post right upper lobectomy Management including pain control as per cardiothoracic surgery Encourage use of incentive spirometry #Hyperglycemia in the setting of type 2 diabetes and reactive to above Recent HbA1c 6.9 Accu-Cheks and sliding scale insulin Continue monitor serum glucose level, monitor for hypoglycemia #Leukocytosis likely reactive to above WBC 12.9 Continue monitor CBC #Macrocytic anemia and postoperative anemia, anticipated Hemoglobin 10.5 and MCV 106 Vitamin B12 520 Continue monitor CBC #Euvolemic hyponatremia likely reactive to above Sodium 132 Monitor BMP Chronic conditions: Hypothyroidism: Resume Synthroid Hypertension: Resume lisinopril 5 mg p.o. daily Patient is medically optimized for discharge. Thank you for allowing us to participate in the care of this pleasant patient. Do not hesitate to contact us with questions. Someone can be reached from the [facility] hospitalist group all hours of the day at [phone] or via perfect serve. I have seen and evaluated the patient today. Discussed with the resident and agree with the residents finding and plan as documented in the resident's note. Changes highlighted in blue font. Objective - Vital Signs Vital signs: Vital Signs Temp 98.3 F 02/16/24 08:20 Pulse 87 02/16/24 08:20 Resp 18 02/16/24 08:20 BP 137/80 02/16/24 08:20 Pulse Ox 95 02/16/24 08:20 FiO2 Intake & Output 02/15/24 02/16/24 02/16/24 18:59 06:59 18:59 Intake Total 618 40 260 Output Total 200 Balance 618 -160 260 Weight 60.1 kg Intake: IV 40 20 Invasive Line 2 20 10 Invasive Line 3 20 10 Intake, IV Titration 500 Amount ACETAMINOPHEN IV (For NPO 100 ) 1,000 mg In Empty Bag 1 bag @ 400 mls/hr IVPB Q6HR [facility] Rx#:[id number] Sodium Chloride 0.45% 1, 400 000 ml @ 50 mls/hr IV . Q20H [facility] Rx#:[id number] Oral 118 240 Output: Urine 200 Other: Voiding Method Bedside Commode Toilet Toilet Bedside Commode Bedside Commode # Voids 1 - Labs CBC & Chem 7: 02/16/24 07:22 02/16/24 07:22 Labs: Abnormal Lab Results - Last 24 Hours (Table) 02/15/24 02/15/24 02/16/24 Range/Units 16:42 20:26 06:34 WBC (3.8-10.6) k/uL RBC (3.80-5.40) m/uL Hgb (11.4-16.0) gm/dL MCV (80.0-100.0) fL Neutrophils # (1.3-7.7) k/uL Sodium (137-145) mmol/L Glucose (74-99) mg/dL POC Glucose (mg/dL) 162 H 128 H 146 H (70-110) mg/dL 02/16/24 02/16/24 02/16/24 Range/Units 07:22 07:22 11:49 WBC 12.9 H (3.8-10.6) k/uL RBC 3.31 L (3.80-5.40) m/uL Hgb 10.9 L (11.4-16.0) gm/dL MCV 103.3 H (80.0-100.0) fL Neutrophils # 8.7 H (1.3-7.7) k/uL Sodium 133 L (137-145) mmol/L Glucose 164 H (74-99) mg/dL POC Glucose (mg/dL) 133 H (70-110) mg/dL
[2024-02-18] MEDS ORDERED: LEVOTHYROXINE 50 MCG TAB PO SCH (06:30)
== END 2024-02-16 12:35 | disposition home or self-care (01) | DRG 164 ==
LOC: 2ORMAIN 05:46 → 3SCARD 14:37
PROVIDERS: ADMIT Thoracic Surgery (Cardiothoracic Vascular Surgery); ATTEND Thoracic Surgery (Cardiothoracic Vascular Surgery)
PROC: 07B74ZX Excision of Thorax Lymphatic, Percutaneous Endoscopic Approach, Diagnostic (ICD-10-PCS; 2024-02-14)
PROC: 8E0W4CZ Robotic Assisted Procedure of Trunk Region, Percutaneous Endoscopic Approach (ICD-10-PCS; 2024-02-14)
PROC: 3E0T3BZ Introduction of Anesthetic Agent into Peripheral Nerves and Plexi, Percutaneous Approach (ICD-10-PCS; 2024-02-14)
PROC: 3E0T33Z Introduction of Anti-inflammatory into Peripheral Nerves and Plexi, Percutaneous Approach (ICD-10-PCS; 2024-02-14)
PROC: 0BTC4ZZ Resection of Right Upper Lung Lobe, Percutaneous Endoscopic Approach (ICD-10-PCS; principal; 2024-02-14 08:00)
DX: C34.11 Malignant neoplasm of upper lobe, right bronchus or lung (principal); E87.1 Hypo-osmolality and hyponatremia; G89.18 Other acute postprocedural pain; E03.9 Hypothyroidism, unspecified; E11.65 Type 2 diabetes mellitus with hyperglycemia; E31.21 Multiple endocrine neoplasia [MEN] type I; E78.5 Hyperlipidemia, unspecified; K21.9 Gastro-esophageal reflux disease without esophagitis; D72.829 Elevated white blood cell count, unspecified; I10 Essential (primary) hypertension; N20.0 Calculus of kidney; D35.1 Benign neoplasm of parathyroid gland; H18.519 Endothelial corneal dystrophy, unspecified eye; D53.9 Nutritional anemia, unspecified; D63.0 Anemia in neoplastic disease; R42 Dizziness and giddiness; D09.19 Carcinoma in situ of other urinary organs; M19.90 Unspecified osteoarthritis, unspecified site; D64.89 Other specified anemias; Z79.890 Hormone replacement therapy; Z79.84 Long term (current) use of oral hypoglycemic drugs; Z79.82 Long term (current) use of aspirin; Z88.2 Allergy status to sulfonamides; Z88.5 Allergy status to narcotic agent; Z88.8 Allergy status to other drugs, medicaments and biological substances; Z85.51 Personal history of malignant neoplasm of bladder; Z90.411 Acquired partial absence of pancreas; Z90.81 Acquired absence of spleen; Z94.7 Corneal transplant status
CPT/HCPCS: 64999; 71045; 71046; 80048; 82607; 82747; 85025; 94640; 94664

== ENCOUNTER → 2024-07-24 | Outpatient (CLI) | payer MEDICARE ==
[2024-07-24 14:47] LABS: African American GFR (CKD) >90 (>60 ml/min/1.73 sqM); Blood Urea Nitrogen 17 mg/dL (7-17); Non-African American GFR(CKD) >90 (>60 ml/min/1.73 sqM)
--- NOTE | 2024-07-25 08:53 | CT ---
EXAMINATION TYPE: CT chest w con CT DLP: 163.7 mGycm, Automated exposure control for dose reduction was used. DATE OF EXAM: 07/24/2024 3:37 PM COMPARISON: Chest radiograph 03/06/2024, CT chest 01/20/2024, 10/22/2023, PET CT 12/16/2023, 09/12/2023 CLINICAL INDICATION:Female, 73 years old with history of C67.9 CARCINOMA BLADDER E3121 ENDOCRINE C34. 11 CANCER LUNG; PHH, f/u lung ca TECHNIQUE: Multiple axial images were obtained through the chest following the administration of 100 cc of Isovue 300. . Coronal and sagittal reformats reviewed. FINDINGS: LUNGS/ PLEURA: Postsurgical changes from right upper lobectomy with scarring for resection of previou sly seen right upper lobe mass. No new suspicious pulmonary nodule or mass. No pleural effusion or p neumothorax. No focal consolidation. Elevation of the right hemidiaphragm. AIRWAY: Patent and unremarkable.. HEART: Size within normal limits. No pericardial effusion. Mild coronary artery calcifications presen t. MEDIASTINUM: No evidence of adenopathy. VASCULATURE: Four-vessel aortic arch. No aortic aneurysm. Minimal atherosclerotic calcification of th e aorta and its branches. No central pulmonary embolism identified. MUSCULOSKELETAL: No acute osseous abnormalities. Bilateral shoulder arthropathy. No aggressive osseou s lesion. Mild multilevel degenerative disc disease. SOFT TISSUES/LYMPH NODES: Unremarkable. LOWER NECK: No significant findings. UPPER ABDOMEN: The gallbladder is surgically absent. Nonobstructed right renal upper pole 4.8 mm calc ulus. Additional multiple smaller nonobstructive left renal calculi. IMPRESSION: 1. Postsurgical changes from right upper lobectomy. No evidence for recurrence within the chest. 2. Nonobstructive bilateral renal calculi. [facility], , 07/25/2024 8:50 AM
== END | disposition home or self-care (01) ==
LOC: RADCTMAIN 14:08
PROVIDERS: ATTEND Internal Medicine
DX: C34.11 Malignant neoplasm of upper lobe, right bronchus or lung (principal); E31.21 Multiple endocrine neoplasia [MEN] type I; C67.9 Malignant neoplasm of bladder, unspecified; E11.9 Type 2 diabetes mellitus without complications; N20.0 Calculus of kidney; Z90.89 Acquired absence of other organs
CPT/HCPCS: 82565; 84520; 71260; 36415; Q9967